=== PATIENT | female | born 1990 | race Two or more races ===

== ENCOUNTER 2025-01-12 14:46 | Outpatient (REF) | payer OTHER, SELFPAY ==
[2025-01-12 16:10] LABS: MANUAL DIFF FLAG NO
[2025-01-12 16:43] LABS: Basophils Percent Auto 0.5 % (0-2); Eosinophils Absolute Auto 0.1 X10*3/uL (0.0-0.4); Eosinophils Percent Auto 1.3 % (0-4); Hematocrit 39.9 % (37.0-47.0); Imm Gran Abs Auto 0.01 X10*3/uL (0.00-0.03); Imm Gran Pct Auto 0.2 % (0.0-0.4); Lymphocytes Absolute Auto 2.2 X10*3/uL (1.2-4.9); Mean Corpuscular HGB Conc 32.6 g/dl (31.0-35.0); Mean Corpuscular Hemoglobin 28.3 pg (27.0-33.0); Mean Corpuscular Volume 86.9 fL (80.0-98.0); Mean Platelet Volume 10.2 fL (9.4-12.3); Monocytes Absolute Auto 0.4 X10*3/uL (0.1-1.2); Monocytes Percent Auto 6.6 % (2-11); Neutrophils Absolute Auto 3.2 x10*3/uL (2.0-8.3); Neutrophils Percent Auto 54.4 % (45-73); Platelet Count 316 X10*3/uL (160-400); Red Blood Count 4.59 X10*6/uL (4.20-5.50)
[2025-01-12 16:55] LABS: Estimated Average Glucose 117 mg/dL; Hemoglobin A1C 131.1204 umol/L; Hemoglobin A1c % 5.7 % (<6.0)
[2025-01-12 17:03] LABS: Alanine Aminotransferase 39 U/L (0-31); Albumin Level 4.5 g/dL (3.5-5.0); Anion Gap 11 (12-20); Aspartate Amino Transferase 33 U/L (5-31); Bilirubin Total 0.4 mg/dL (0.0-1.0); Blood Urea Nitrogen 16 mg/dL (9-16); Carbon Dioxide 27 mmol/L (22-29); Chloride 104 mmol/L (96-108); Cholesterol 202 mg/dL (<200); Estimated Glomerular Filt Rate > 60; Glucose Random 89 mg/dL (60-115); HDL Cholesterol 47 mg/dL (>40); LDL Cholesterol Calculated 128 mg/dL (<100); Potassium 4.1 mmol/L (3.3-5.1); Sodium 138 mmol/L (135-145); Total Protein 8.6 g/dL (6.5-8.0); Triglycerides 135 mg/dL (<150)
[2025-01-12 17:09] LABS: TSH reflex Free T4 0.98 uIU/mL (0.32-4.0); Vitamin D 25-OH Total 22.6 ng/mL (>30)
[2025-01-12 17:44] LABS: Alkaline Phosphatase 48 U/L (39-117)
--- OUTSIDE RECORDS SUMMARY | 2025-01-12 18:43 | XMS_ITS | Encounter Summary ---
Author Organization [employer] Address [address] [facility] 7[address] [place] [address] Care Team Providers Care Wet Sander Name Role Phone Xiomara Hernandez MD Primary Care Provider [phone] Reason for Referral * Consultation (Routine) - Authorized Specialty Diagnoses / Procedures Referred By Kamran barajas Referred To Contact Obstetrics and Gynecology Diagnoses ASCUS with positive high risk HPV cervical Shannan Choudhury CNM [address] [place] [address] Phone: tel: fax: [facility] OBGYN [address] [facility] 4th [address] [place], [place] Phone: tel: fax: Referral ID Status Reason Start Date Expiration Date Visits Requested Visits Authorized [id number] Authorized Specialty Services Required 12/22/2024 12/22/2025 1 1 Encounter Details Date Type Department Care Team (Late st Contact Info) Description 12/22/2024 Orders Only [facility] MEDICINE [address] [place], [place] [phone] Shannan Choudhury CNM [address] [place], [place] [phone] ASCUS with positive high risk HPV cervical (Primary Dx) Social History Tobacco Use Types Packs/Day Years Used Date Smoking Tobacco: Never Smokeless Tobacco: Never Alcohol Use Standard Drinks/Week Comments Never 0 (1 standard drink = 0.6 oz pur e alcohol) Depression Answer Date Recorded Patient Health Questionnaire-9 Score 0 12/03/2023 Patient Health Questionnaire-9 Score 0 12/03/2023 Last PHQ-9: Questionnaire Data Not on file 0 12/03/2023 Depression Answer Date Recorded Patient Health Questionnaire-2 Score 0 12/03/2023 Comments No Sex and Gender Information Value Date Recorded Sex Assigned at Female 09/10/2022 10:27 AM EDT Legal Sex Female 10:27 AM EDT Gender Identity Female 09/10/2022 10:27 AM EDT Sexual Orientation Straight 09/10/2022 10 :27 AM EDT documented as of this encounter Plan of Treatment Upcoming Encounters Date Type Department Care Team (Late st Contact Info) Description 02/08/2025 2:30 PM EDT Clinical Support [facility] DIABETES/NUTRITION [address] [place] [address] Cate Reeder, RD [address] [place] [address] 03/25/2025 3:00 PM EDT Office Visit [facility] OPTOMETRY [address] [place] [address] Krish, Mica, OD [address] [place] [address] Scheduled Referrals Name Type Priority Associated Diagnoses Order Schedule Referral to Obstetrics / Gynecology Outpatient Referral Routine ASCUS with positive high risk HPV cervical Expected: 12/22/2024 (Approximate), Expires: 12/22/2025 documented as of this encounter Procedures Procedure Name Priority Date/Time Associated Diagnosis Comments PAP SMEAR Routine 08/26/2023 12:00 AM EDT PAP SMEAR Routine 08/23/2022 12:00 AM EDT documented in this encounter Results * Pap Smear (08/26/2023 12:00 AM EDT) Swab us Historical Provider LAB CYTOLOGY ORDERABLES F inal Result EXTERNAL LAB * Pap Smear (08/23/2022 12:00 AM EDT) Swab us Historical Provider LAB CYTOLOGY ORDERABLES F inal Result EXTERNAL LAB documented in this encounter Visit Diagnoses Diagnosis ASCUS with positive high risk HPV cervical- Primary documented in this encounter Additional Health Concerns Assessment Noted Time PHQ-9 Depression Total Score: 0 12/03/19 24 2:34 PM EST documented as of this encounter Care Teams Wet Sander Relationship Specialty Start Date End Date Xiomara Hernandez MD [address] [place] [address] PCP - General Family Medicine 05/02/22 documented as of this encounter
--- OUTSIDE RECORDS SUMMARY | 2025-01-12 18:43 | XMS_ITS | Encounter Summary ---
Author Organization [email or web address] Address [address] [facility] 7[address] [place] [address] Care Team Providers Care Spinning Mule Operator Name Role Phone Xiomara Hernandez MD Primary Care Provider [phone] Encounter Details Date Type Department Care Team (Latest Contact Info) Description 01/12/2025 Travel Social History Tobacco Use Types Packs/Day Years Used Date Smoking Tobacco: Never Smokeless Tobacco: Never Alcohol Use Standard Drinks/Week Comments Never 0 (1 standard drink = 0.6 oz pur e alcohol) Depression Answer Date Recorded Patient Health Questionnaire-9 Score 8 01/12/2025 Patient Health Questionnaire-9 Score 8 01/12/2025 Last PHQ-9: Questionnaire Data Not on file 0 01/12/2025 Housing Stability Answer Date Recorded What is your housing situation today? I have violeta tsai 01/05/[address] you li ve. Do you have problems with any of the following? None of the above 01/05/2025 Food Insecurity Answer Date Recorded Within the past 12 months, y ou worried that your food would run out before you got money to buy more: Sometimes True 2024 Within the past 12 months,th e food you bought just didn't last and you didn't have enough money to get more: Sometimes True 01/05/2025 Transportation Answer Date Recorded In the past 12 months, has l ack of transportation kept you from medical appts, meetings, work or from getting things needed for daily living? No 01/05/2025 Utilities Answer Date Recorded In the past 12 months, has t he electric, gas, oil or water company threatened to shut off services in your home? No 01/05/2025 Depression Answer Date Recorded Patient Health Questionnaire-2 Score 2 01/12/2025 Internet Access Answer Date Recorded Internet Access Q1 Yes 01/05/2025 Internet Access Q2 Not on file 01/05/2025 Comments No Sex and Gender Information Value [...] Description 02/08/2025 2:30 PM EDT Clinical Support [facility] DIABETES/NUTRITION [address] [place] [address] Cate Reeder, EZ [address] [place] [address] 03/25/2025 3:00 PM EDT Office Visit [facility] OPTOMETRY [address] [place] [address] Krish, Mica, OD [address] [place] [address] documented as of this encounter Visit Diagnoses Not on filedocumented in this encounter Additional Health Concerns Assessment Noted Time PHQ-9 Depression Total Score: 8 01/13/20 25 2:57 PM EST documented as of this encounter Care Teams Spinning Mule Operator Relationship Specialty Start Date End Date Xiomara Hernandez MD [address] [place] [address] PCP - General Family Medicine 05/02/22 documented as of this encounter
--- OUTSIDE RECORDS SUMMARY | 2025-01-12 18:43 | XMS_ITS | Encounter Summary ---
Author Organization [employer] Address [address] [place] [address] [address] Care Team Providers Care Debt And Budget Counselor Name Role Phone Xiomara Hernandez MD Primary Care Provider [phone] Reason for Referral * Consultation (Routine) - Pending Review Specialty Diagnoses / Procedures Referred By Kamran barajas Referred To Contact Nutrition Diagnoses Prediabetes Xiomara Hernandez MD [address] [place] [address] Phone: tel: fax: Referral ID Status Reason Start Date Expiration Date Visits Requested Visits Authorized [id number] Pending Review Specialty Services Required 4 11/03/2025 1 1 Encounter Details Date Type Department Care Team (Late st Contact Info) Description 11/03/2024 Orders Only [facility] MEDICINE [address] [place], [place] [phone] Xiomara Hernandez MD [address] [place], [place] [phone] Prediabetes (Primary Dx) Social History Tobacco Use Types [...] Description 02/08/2025 2:30 PM EDT Clinical Support [facility] DIABETES/NUTRITION [address] [place] [address] Cate Reeder, RD [address] [place] [address] 03/25/2025 3:00 PM EDT Office Visit [facility] OPTOMETRY [address] [place] [address] Krish, Mica, OD [address] [place] [address] Scheduled Referrals Name Type Priority Associated Diagnoses Orde r Schedule Referral to Nutrition Therapy Outpatient Referral Routine Prediabetes Expected: 11/03/2024 (Approximate), Expires: 11/03/2025 documented as of this encounter Visit Diagnoses Diagnosis Prediabetes- Primary Other abnormal glucose documented in this encounter Additional Health Concerns Assessment Noted Time PHQ-9 Depression Total Score: 0 12/03/19 24 2:34 PM EST documented as of this encounter Care Teams Debt And Budget Counselor Relationship Specialty Start Date End Date Xiomara Hernandez MD [address] [place] [address] PCP - General Family Medicine 05/02/22 documented as of this encounter
--- OUTSIDE RECORDS SUMMARY | 2025-01-12 18:43 | XMS_ITS | Encounter Summary ---
Author Organization [employer] Address [address] [place] [address] Care Team Providers Care Cigar Binder Name Role Phone Xiomara Hernandez MD Primary Care Provider [phone] Reason for Visit * Reason Onset Date Comments Med Refill 10/13/2023 Encounter Details Date Type Department Care Team (Late st Contact Info) Description 10/13/2023 Refill [facility] MEDICINE [address] [place] [address] Xiomara Hernandez MD [address] [place] [address] Social History Tobacco Use Types Packs/Day Years Used Date Smoking Tobacco: Never Assessed Comments Unknown Sex and Gender Information Value Date Recorded [...] 2:30 PM EDT Clinical Support [facility] DIABETES/NUTRITION [address] [place] [address] [place] [address] 03/25/2025 3:00 PM EDT Office Visit [facility] OPTOMETRY [address] [place] [address] Mica Rutherford, OD [address] [place] [address] documented as of this encounter Visit Diagnoses Not on filedocumented in this encounter Care Teams Cigar Binder Relationship Specialty Start Date End Date Xiomara Hernandez MD [address] [place] [address] PCP - General Family Medicine 05/02/22 documented as of this encounter
--- OUTSIDE RECORDS SUMMARY | 2025-01-12 18:43 | XMS_ITS | Encounter Summary ---
Author Organization [employer] Address [address] [place] [address] [address], [place] [address] Care Team Providers Care Geologist Petroleum Name Role Phone Xiomara Hernandez MD Primary Care Provider [phone] Reason for Visit * Reason Onset Date Comments Referral 11/03/2024 Encounter Details Date Type Department Care Team ([facility] st Contact Info) Description 11/03/2024 Telephone [facility] MEDICINE [address] [place], [place] [phone] Xiomara Hernandez MD [address] [place] [address] Referral Social History Tobacco Use Types Packs/Day Years [...] AM EDT documented as of this encounter Miscellaneous Notes * Telephone Encounter - Xiomara Hernandez MD - 11/03/2024 1:34 PM EST Referred * Telephone Encounter - Rachael De La Vega RN - 11/03/2024 12:37 PM EST TC placed to pt who states that she would like a referral placed to Ambar Ly, Feed Project Engineer at [facility]. The pt would like this done due to her being diagnosed pre diabetic and would like to have dietary change to help bring down her glucose trends. Pt informed that this information willbe sent to PCP for review. * Telephone Encounter - Keith Davies - 11/03/2024 12:10 PM EST Tc from requesting a referral for a Neuronist at [facility] Dr Nuris Ly. IF any questions contact pt at [phone] documented in this encounter Plan of Treatment Upcoming Encounters Date Type Department Care Team (Late st Contact Info) Description 02/08/2025 2:30 PM EDT Clinical Support [facility] DIABETES/NUTRITION [address] [place] [address] Cate Reeder, EZ [address] [place] [address] 03/25/2025 3:00 PM EDT Office Visit [facility] OPTOMETRY [address] [place] [address] KrishMica lowe, OD [address] [place] [address] documented as of this encounter Visit Diagnoses Not on filedocumented in this encounter Additional Health Concerns Assessment Noted Time PHQ-9 Depression Total Score: 0 12/03/19 2:34 PM EST documented as of this encounter Care Teams Geologist Petroleum Relationship Specialty Start Date End Date Xiomara Hernandez MD [address] [place] [address] PCP - General Family Medicine 05/02/22 documented as of this encounter
--- OUTSIDE RECORDS SUMMARY | 2025-01-12 18:43 | XMS_ITS | Encounter Summary ---
Author Organization [employer] Address [address] [place] [address] Care Team Providers Care Mortgage Processing Manager Name Role Phone Xiomara Hernandez MD Primary Care Provider [phone] Reason for Visit * Reason Comments Pre-visit Planning SDOH Screening posit frances and Tobacco screening negative Encounter Details Date Type Department Care Team ([facility] st Contact Info) Description 01/05/2025 Patient Outreach [facility] MEDICINE [address] [place] [address] Xiomara Hernandez MD [address] [place] [address] Pre-visit Planning (SDOH Screening positive and Tobacco screening negative) Social History Tobacco Use Types Packs/Day Years Used Date Smoking Tobacco: Never Smokeless Tobacco: Never Alcohol Use Standard Drinks/Week Comments Never 0 (1 standard drink = 0.6 oz pur e alcohol) Depression Answer Date Recorded Patient Health Questionnaire-9 Score 0 12/03/2023 Patient Health Questionnaire-9 Score 0 12/03/2023 Last PHQ-9: Questionnaire Data Not on file 0 12/03/2023 Housing Stability Answer Date Recorded What is [...] Recorded Patient Health Questionnaire-2 Score 0 12/03/2023 Internet Access Answer Date Recorded Internet Access Q1 Yes 01/05/2025 Internet Access Q2 Not on file 01/05/2025 Comments No Sex and Gender Information Value Date Recorded Sex Assigned at Female 09/10/2022 10:27 AM EDT Legal Sex Female 10:27 AM EDT Gender Identity Female 09/10/2022 10:27 AM EDT Sexual Orientation Straight 09/10/2022 10 :27 AM EDT documented as of this encounter Progress Notes * Leigh Taveras - 01/05/2025 10:05 AM EST ABIODUN Damon placed successful outbound call to patient for pre-visit planning. Patient name and confirmed. Patient confirms appt date and time, and has transportation arrangements. Biggest concern for appointment at this time is no concerns. Patient advised to bring to appointment a photo id and insurance card. Appropriate screenings completed in anticipation of appointment. SDOH positive. Patient looking for assistance with Food insecurities:Sometimes. Referral will be placed. documented in this encounter Plan of Treatment Upcoming Encounters Date Type Department Care Team (Late st Contact Info) Description 02/08/2025 2:30 PM EDT Clinical Support [facility] DIABETES/NUTRITION [address] [place], [place] [phone] Cate Reeder, EZ [address] [place] [address] 03/25/2025 3:00 PM EDT Office Visit [facility] OPTOMETRY [address] [place] [address] Mica Rutherford, OD [address] [place] [address] documented as of this encounter Visit Diagnoses Not on filedocumented in this encounter Additional Health Concerns Assessment Noted Time PHQ-9 Depression Total Score: 0 12/03/19 24 2:34 PM EST documented as of this encounter Care Teams Mortgage Processing Manager Relationship Specialty Start Date End Date Xiomara Hernandez MD [address] [place] [address] PCP - General Family Medicine 05/02/22 documented as of this encounter
--- OUTSIDE RECORDS SUMMARY | 2025-01-12 18:43 | XMS_ITS | Encounter Summary ---
Author Organization [employer] Address [address] [place] [address] [address] Care Team Providers Care Baggage And Mail Agent Name Role Phone Xiomara Hernandez MD Primary Care Provider [phone] Reason for Visit * Consultation (Routine) - Pending Review Specialty Diagnoses / Procedures Referred By Kamran barajas Referred To Contact Nutrition Diagnoses Prediabetes Xiomara Hernandez MD [address] [place] [address] Phone: tel: fax: Referral ID Status Reason Start Date Expiration Date Visits Requested Visits Authorized [id number] Pending Review Specialty Services Required 4 11/03/2025 1 1 Encounter Details Date Type Department Care Team ([facility] st Contact Info) Description 12/15/2024 2:30 PM EST Nutrition [facility] DIABETES/NUTRITION [address] [place] [address] [place], [place] [phone] Prediabetes (Primary Dx) Social History Tobacco Use [...] AM EDT documented as of this encounter Last Filed Vital Signs Vital Sign Reading Time Taken Comments Blood Pressure - - Pulse - - Temperature - - Respiratory Rate - - Oxygen Saturation - - Inhaled Oxygen Concentration - - Weight 99.9 kg (220 lb 3.2 oz) 12/17/2024 9:57 A M EST Height 165.3 cm (5' 5.09 ) 12/17/2024 9:57 AM ES T Body Mass Index 36.54 12/17/2024 9:57 AM EST documented in this encounter Progress Notes * Cate Reeder RD - 12/15/2024 2:30 PM EST In Person Visit Medical Diagnosis: R73.03 Prediabetes Anthropometrics: Ht:5' 5.09 (1.653 m), Wt:220 lb 3.2 oz (99.9 kg), BMI: Body mass index is 36.54 kg/m??. Assessment: Patient (Pt) accepted nutrition education assessment appointment with RD. RD took Pt's weight. Weight revealed a decrease of three (3) pounds since last time noted here in Pt's chart on 10/15/2024. RD took 24 hour recall/ typical daily intake from Pt. Intake revealed Pt's diet is high in refine carbohydrates and salt; and low in: protein, healthy fats, sources of calcium, fiber, fresh and cooked vegetables, fruits, and whole grains. Today, Pt only did the first half of First appointment. Once the second half of First appointment is finished, RD will fill in nutrition diagnosis, nutrition Intervention, goals, Tailored made meal plan, monitoring and evaluation will be put into Pt's chart here. Thus, all is to be followed by Pt with their agreement. The second half of First nutrition education assessment appointment is scheduled in the first week of January 2025. Until then, RD made suggestions of change in Pt's diet. Pt agreed to work on these changes and havethem completed by next appointment. These changes will be feathered into Pt overall Tailored made diabetic meal plan. They are: Take Calm- magnesium carbonate drink. RD showed were Pt can get this drink and how to make it. Pt is to take daily in the evening upon going to bed. Use the elliptical in the house hold as the source of exercise. Pt is to use machine, but not to push herself in how far/ distance and time. Use until she feels tired. Use real butter instead of margarine. In the evening, have evening snack after protestant as a salad with protein and EVOO (extra virgin olive oil) and whatever dressing Pt preferrs. Wake up an hour later to get more sleep... such as, 4:00 am instead of 3:00 am. Pt said she can do all of these with no issues in doing them. Food Allergies: Shellfish Exercise: Little to none Food Intolerance: Lactose- dairy Food Preferences: Eggs, jensen, turkey, sausages, margarine, chicken, beef, pork, breads, rice, beans, noodles/ pasta,lasagna, chicken nuggets, malawian fries, lettuces, potatoes, tomatoes, Lay's potato chips, corn chips, Woodhull chocolate, Leandro sauce, arnie, milk, coffee, water Food Dislikes: Regular yogurt due to giving Pt heat burn Frequency of Eating Out/ Restaurant: 5 days or greater weekly Who Cooks?: Partner How much caffeine?: coffee 1-2 cups /day How much sugary beverages?: Coffee is sweetened with stevia. Diet History: Breakfast: Eg Jensen, turkey: 2-4 slices Or Breakfast sausages: 3-4 Honey wheat bread: 2 slices Margarine: 4 teaspoons Coffee, black: 1 cup Snack: None Water: 1+ cup Lunch: Beans & rice mixed: 1 cup Meat/ protein: 4 oz. Water: 1+ cups Snack: Lay's potato chips: snack bag Water: 1/2+ cup Dinner: Chicken Leandro: 1+ cups Noodles: 1+ cups Water: 1+ cup Snack: Late at night, after protestant: Casie[employer] Chicken nuggets: 6+ Or Mini hamburger/ slider: one Blueberry/ pomegranate drink, with real sugar: 2 cups Nutrition Diagnosis: 1st half of First appointment was done today. When the 2nd half of First appointment is finished/ done, this area will be filled in. Nutrition Intervention: 1st half of First appointment was done today. When the 2nd half of First appointment is finished/ done, this area will be filled in. Monitoring and Evaluation: 1st half of First appointment was done today. When the 2nd half of First appointment is finished/ done, this area will be filled in. Provider: Cate Reeder RD, LDN documented in this encounter Plan of Treatment Upcoming Encounters Date Type Department Care Team (Late st Contact Info) Description 02/08/2025 2:30 PM EDT Clinical Support [facility] DIABETES/NUTRITION [address] [place] [address] [place] [address] 03/25/2025 3:00 PM EDT Office Visit [facility] OPTOMETRY [address] [place] [address] KrishMica lowe, OD [address] [place] [address] documented as of this encounter Visit Diagnoses Diagnosis Prediabetes- Primary Other abnormal glucose documented in this encounter Additional Health Concerns Assessment Noted Time PHQ-9 Depression Total Score: 0 12/03/19 24 2:34 PM EST documented as of this encounter Care Teams Baggage And Mail Agent Relationship Specialty Start Date End Date Xiomara Hernandez MD [address] [place] [address] PCP - General Family Medicine 05/02/22 documented as of this encounter
--- OUTSIDE RECORDS SUMMARY | 2025-01-12 18:43 | XMS_ITS | Encounter Summary ---
Author Organization [employer] Address [address] [place] [address] [address] [place] [address] Care Team Providers Care Electric Range Servicer Name Role Phone Xiomara Hernandez MD Primary Care Provider Encounter Details Date Type Department Care Team (Late st Contact Info) Description 01/12/2025 1:45 PM EST Office Visit [facility] MEDICINE [address] [place], [place] [phone] Xiomara Hernandez MD [address] [place], [place] [phone] Routine general medical examination at a health care facility (Primary Dx); Mild intermittent asthma without complication; Constipation, unspecified constipation type; Migraine without status migrainosus, not intractable, unspecified migraine type; Fatigue, unspecified type; Vitamin D deficiency; Routine screening for STI (sexually transmitted infection) Social History Tobacco Use Types Packs/Day Years [...] Sign Reading Time Taken Comments Blood Pressure 133/79 01/12/2025 2:18 PM EST Pulse 49 01/12/2025 2:18 PM EST Temperature 36.3 ??C (97.3 ??F) 01/12/2025 2:18 PM ES T Respiratory Rate 15 01/12/2025 2:18 PM EST Oxygen Saturation 98% 01/12/2025 2:18 PM EST Inhaled Oxygen Concentration - - Weight 101 kg (223 lb) 01/12/2025 2:18 PM EST Height 169 cm (5' 6.54 ) 01/12/2025 2:18 PM EST Body Mass Index 35.42 01/12/2025 2:18 PM EST documented in this encounter Miscellaneous Notes * Assessment & Plan Note - Desirae Fernandes MA - 01/12/2025 1:13 PM ESTAssociated Problem(s): Migraine Previously seeing [facility] neurology, referred back in Jun 2022. Pt will call to schedule appt. Continue (resume) Magnesium oxide. * Assessment & Plan Note - Desirae Fernandes MA - 01/12/2025 1:12 PM ESTAssociated Problem(s): Constipation - continue judicious use of laxative - add magnesium oxide * Assessment & Plan Note - Desirae Fernandes MA - 01/12/2025 1:12 PM ESTAssociated Problem(s): Mild intermittent asthma - dormant at this time - albuterol HFA prn documented in this encounter Plan of Treatment Upcoming Encounters Date Type Department Care Team (Late st Contact Info) Description 02/08/2025 2:30 PM EDT Clinical Support [facility] DIABETES/NUTRITION [address] [place] [address] Cate Reeder, RD [address] [place] [address] 03/25/2025 3:00 PM EDT Office Visit [facility] OPTOMETRY [address] [place] [address] KrishMica lowe, OD [address] [place] [address] Pending Results Name Type Priority Associated Diagnoses Date /Time TSH with Reflex to Free T4 Lab Routine Fatigue, unspecified type 01/12/2025 2:49 PM EST Comprehensive Metabolic Panel Lab Routine Fatigue, unspecified type 01/12/2025 2:49 PM EST Lipid Panel with Reflex to Direct LDL Lab Routine Fatigue, unspecified type 01/12/2025 2:49 PM EST Vitamin D, 25-Hydroxy, Total, Immunoassay Lab Routine Vitamin D deficiency 01/12/2025 2:49 PM EST Scheduled Orders Name Type Priority Associated Diagnoses Orde r Schedule Syphilis Screen Lab Routine Routine screening for STI (sexually transmitted infection) Expected: 01/12/2025 (Approximate), Expires: 01/12/2026 Hepatitis C Antibody with Reflex to HCV, RNA, Quantitative, Real-Time PCR Lab Routine Routine screening for STI (sexually transmitted infection) Expected: 01/12/2025 (Approximate), Expires: 01/12/2026 Hepatitis B Surface Antibody, Qualitative Lab Routine Routine screening for STI (sexually transmitted infection) Expected: 01/12/2025 (Approximate), Expires: 01/12/2026 Hepatitis B Core Antibody, Total Lab Routine Routine screening for STI (sexually transmitted infection) Expected: 01/12/2025 (Approximate), Expires: 01/12/2026 Chlamydia/N. Gonorrhoeae RNA, TMA, Urogenitial Microbiology Routine Routine screening for STI (sexually transmitted infection) Expected: 01/12/2025 (Approximate), Expires: 01/12/2026 HIV-1/2 Antigen and Antibodies, Fourth Generation, with Reflexes Lab Routine Routine screening for STI (sexually transmitted infection) Expected: 01/12/2025 (Approximate), Expires: 01/12/2026 Hepatitis B surface antigen, EIA Lab Routine Routine screening for STI (sexually transmitted infection) Expected: 01/12/2025 (Approximate), Expires: 01/12/2026 Hepatitis A Antibody, Total Lab Routine Routine screening for STI (sexually transmitted infection) Expected: 01/12/2025 (Approximate), Expires: 01/12/2026 documented as of this encounter Procedures Procedure Name Priority Date/Time Associated Diagnosis Comments VITAMIN D,25-OH,TOTAL,IA Routine 01/12/2025 2:49 PM EST Vitamin D deficiency TSH W/REFLEX TO FT4 Routine 01/12/2025 2 :49 PM EST Fatigue, unspecified type LIPID PANEL WITH REFLEX TO DIRECT LDL Routine 01/12/2025 2:49 PM EST Fatigue, unspecified type CBC WITH AUTO DIFFERENTIAL Routine 01/12/2025 2:49 PM EST Fatigue, unspecified type HEMOGLOBIN A1C Routine 01/12/2025 2:49 PM EST Fatigue, unspecified type COMPREHENSIVE METABOLIC PANEL Routine 01/12/2025 2:49 PM EST Fatigue, unspecified type documented in this encounter Results * CBC auto differential (01/12/2025 2:49 PM EST) White Blood Count 6.0 4.8 - 10.8 X10*3/uL [facility] Red Blood Count 4.59 4.20 - 5.50 X10*6/uL [facility] Hemoglobin 13.0 12.0 - 16.0 g/dl [facility] Hematocrit 39.9 37.0 - 47.0 % [facility] Mean Corpuscular Volume 86.9 80.0 - 98.0 fL [facility] Mean Corpuscular Hemoglobin 28.3 27.0 - 33.0 pg [facility] Mean Corpuscular HGB Conc 32.6 31.0 - 35.0 g/dl [facility] Red Cell Distribution Width 13.0 11.0 - 16.0 % [facility] Platelet Count 316 160 - 400 X10*3/uL [facility] Mean Platelet Volume 10.2 9.4 - 12.3 fL [facility] Neutrophils Percent Auto 54.4 45 - 73 % [facility] Imm Gran Pct Auto 0.2 0.0 - 0.4 % [facility] Lymphocytes Percent Auto 37.0 20 - 40 % [facility] Monocytes Percent Auto 6.6 2 - 11 % [facility] Eosinophils Percent Auto 1.3 0 - 4 % [facility] Basophils Percent Auto 0.5 0 - 2 % [facility] NRBC Pct Auto 0.0 0.0 - 0.2 /100WBC [facility] Neutrophils Absolute Auto 3.2 2.0 - 8.3 x10*3/uL [facility] Imm Gran Abs Auto 0.01 0.00 - 0.03 X10*3/uL [facility] Lymphocytes Absolute Auto 2.2 1.2 - 4.9 X10*3/uL [facility] Monocytes Absolute Auto 0.4 0.1 - 1.2 X10*3/uL [facility] Eosinophils Absolute Auto 0.1 0.0 - 0.4 X10*3/uL [facility] Basophils Absolute Auto 0.0 0.0 - 0.2 X10*3/uL [facility] NRBC Abs Auto 0.000 0.0 - 0.012 X10*3/uL [facility] Blood Venous blood specimen / Unknown 01/12/2025 2:49 PM EST 01/12/2025 4:06 PM EST us Xiomara Hernandez MD LAB BLOOD ORDERABLES Final Resul t Performing Organization Address [facility] de Phone Number [facility] [address] [place] [phone] * Hemoglobin A1c (01/12/2025 2:49 PM EST) Hemoglobin A1c 5.7 <6.0 % [facility] Comment:Hemoglobin A1C Refer ence Range Adults: 4.8 - 6.0 % Non diabetic: < 6.0 % Goal: < 7.0 %Additional Action Suggested: > 8.0 %Note: Hemoglobin A1c results are invalid for patients with abnormal amounts of HbF. Blood transfusions may impact the HbA1c concentration in the patient sample. Estimated Average Glucose 117 mg/dL [facility] Comment:eAG = Estimated ave rage glucose which is %A1C expressed asaverage glucose, using the formula of the C2O-LdtdwqqLmuwndn Glucose study (ADAG), Diabetes Care, Vol.31,#8,2007 Blood Venous blood specimen / Unknown 01/12/2025 2:49 PM EST 01/12/2025 4:06 PM EST us Xiomara Hernandez MD LAB BLOOD ORDERABLES Final Resul t Performing Organization Address [facility] Co de Phone Number [facility] [address] [place] [phone] documented in this encounter Visit Diagnoses Diagnosis Routine general medical examination at a health care facility- Primary Mild intermittent asthma without complication Constipation, unspecified constipation type Migraine without status migrainosus, not intractable, unspecified migraine type Fatigue, unspecified type Vitamin D deficiency Routine screening for STI (sexually transmitted infection) Screening examination for venereal disease documented in this encounter Additional Health Concerns Assessment Noted Time PHQ-9 Depression Total Score: 8 01/13/20 25 2:57 PM EST documented as of this encounter Care Teams Electric Range Servicer Relationship Specialty Start Date End Date Xiomara Hernandez MD [address] [place] [phone] PCP - General Family Medicine 05/02/22 documented as of this encounter
--- OUTSIDE RECORDS SUMMARY | 2025-01-12 18:44 | XMS_ITS | Encounter Summary ---
Author Organization [employer] Address [address] [facility] [address] [place] [address] Care Team Providers Care Aeronautics Teacher Name Role Phone Xiomara Hernandez MD Primary Care Provider [phone] Reason for Visit * Reason Onset Date Comments chart prep 01/06/2025 Encounter Details Date Type Department Care Team ([facility] st Contact Info) Description 01/06/2025 Telephone [facility] MEDICINE [address] [place] [address] Nerissa Nelson MA chart prep Social History Tobacco Use Types Packs/Day Years [...] encounter Miscellaneous Notes * Telephone Encounter - Nerissa Nelson MA - 01/06/2025 3:18 PM EST ..chart Prep Labs: not done Images: not done Vaccines due: Covid Due, Hep B Due, and Flu Due Referrals: pending appt obgyn Screenings: Not Applicable Overdue care gaps: PHQ-9 and caesar-7 documented in this encounter Plan of Treatment Upcoming Encounters Date Type Department Care Team (Late st Contact Info) Description 02/08/2025 2:30 PM EDT Clinical Support [facility] DIABETES/NUTRITION [address] [place] [address] Cate Reeder, EZ [address] [place] [address] 03/25/2025 3:00 PM EDT Office Visit [facility] OPTOMETRY [address] [place] [address] Krish, Mica, OD [address] [place] [address] documented as of this encounter Visit Diagnoses Not on filedocumented in this encounter Additional Health Concerns Assessment Noted Time PHQ-9 Depression Total Score: 0 12/03/19 24 2:34 PM EST documented as of this encounter Care Teams Aeronautics Teacher Relationship Specialty Start Date End Date Xiomara Hernandez MD [address] [place] [address] PCP - General Family Medicine 05/02/22 documented as of this encounter
--- OUTSIDE RECORDS SUMMARY | 2025-01-12 18:44 | XMS_ITS | Encounter Summary ---
Author Organization [employer] Address [address] [facility] [address] [place] [address] Care Team Providers Care Debarker Operator Name Role Phone Xiomara Hernandez MD Primary Care Provider [phone] Reason for Visit * Reason Comments Care Coordination CHW outreach for SDO H food needs - LVM Encounter Details Date Type Department Care Team (Latest Contact Info) Description 01/05/2025 Patient Outreach [facility] MEDICINE [address] [place], [place] [phone] Xiomara Hernandez MD [address] [place] [address] Care Coordination (CHW outreach for SDOH food needs - LVM ) Social History Tobacco Use Types Packs/Day Years [...] as of this encounter Progress Notes * Juan Walker - 01/05/2025 10:41 AM EST CHW Juan Walker, placed outbound call to patient for assistance with SDOH as a referral was placed by the provider. Patient had screened positive for the following SDOH insecurities. No answer atthis time. Patient's name and were not confirmed. CHW left detailed message and provided contact information requesting return call for assistance. Patient educated on extended clinic hours on Mondays through Wednesdays, and Walk-In Urgent Care Located in [facility] of [facility]. Patient provided with after-hours line for [facility], , which offer night time triage service and option to transfer toon call provider if needed. documented in this encounter Plan of Treatment Upcoming Encounters Date Type Department Care Team ([facility] st Contact Info) Description 02/08/2025 2:30 PM EDT Clinical Support [facility] DIABETES/NUTRITION [address] [place] [address] [place] [address] 03/25/2025 3:00 PM EDT Office Visit [facility] OPTOMETRY [address] [place] [address] Mica Rutherford, OD [address] [place] [address] documented as of this encounter Visit Diagnoses Not on filedocumented in this encounter Additional Health Concerns Assessment Noted Time PHQ-9 Depression Total Score: 0 12/03/19 24 2:34 PM EST documented as of this encounter Care Teams Debarker Operator Relationship Specialty Start Date End Date Xiomara Hernandez MD [address] [place] [address] PCP - General Family Medicine 05/02/22 documented as of this encounter
--- OUTSIDE RECORDS SUMMARY | 2025-01-12 18:44 | XMS_ITS | Encounter Summary ---
Author Organization [employer] Address [address] [facility] [address] [place] [address] Care Team Providers Care Social Insurance Analyst Name Role Phone Xiomara Hernandez MD Primary Care Provider [phone] Encounter Details Date Type Department Care Team (Latest Contact Info) Description 01/11/2025 Travel Social History Tobacco Use Types Packs/Day [...] Description 02/08/2025 2:30 PM EDT Clinical Support [facility] DIABETES/NUTRITION [address] [place] [address] Cate Reeder, EZ [address] [place] [address] 03/25/2025 3:00 PM EDT Office Visit [facility] OPTOMETRY [address] [place] [address] Krish, Mica, OD [address] [place] [address] documented as of this encounter Visit Diagnoses Not on filedocumented in this encounter Additional Health Concerns Assessment Noted Time PHQ-9 Depression Total Score: 0 12/03/19 24 2:34 PM EST documented as of this encounter Care Teams Social Insurance Analyst Relationship Specialty Start Date End Date Xiomara Hernandez MD [address] [place] [address] PCP - General Family Medicine 05/02/22 documented as of this encounter
--- OUTSIDE RECORDS SUMMARY | 2025-01-12 18:44 | XMS_ITS | Encounter Summary ---
Author Organization [email or web address] Address [address] [place] [address] Care Team Providers Care Teacher Dramatics Name Role Phone Xiomara Hernandez MD Primary Care Provider [phone] Encounter Details Date Type Department Care Team (Late Contact Info) Description 06/07/2023 Abstract [facility] MEDICINE [address] [place] [address] Xiomara Hernandez MD [address] [place] [address] Social History Tobacco Use Types Packs/Day Years [...] Encounters Date Type Department Care Team (Late Contact Info) Description 02/08/2025 2:30 PM EDT Clinical Support [facility] DIABETES/NUTRITION [address] [place] [address] [place] [address] 03/25/2025 3:00 PM EDT Office Visit [facility] OPTOMETRY [address] [place] [address] KrishMica lowe, OD [address] [place] [address] documented as of this encounter Visit Diagnoses Not on filedocumented in this encounter Care Teams Teacher Dramatics Relationship Specialty Start Date End Date Xiomara Hernandez MD [address] [place] [address] PCP - General Family Medicine 05/02/22 documented as of this encounter
--- OUTSIDE RECORDS SUMMARY | 2025-01-12 18:44 | XMS_ITS | Clinical Summary ---
Author Organization [employer] Address [address] [place] [address] 7 [place] [address] Care Team Providers Care Wrapper Stemmer Hand Name Role Phone Xiomara Hernandez MD Primary Care Provider [phone] Allergies No known active allergies Medications polyvinyl alcohol (Liquifilm Tears) 1.4 % ophthalmic solution one drop in each eye 2 to 4 times a day 1 Active polyethylene glycol, PEG, 3350 (MiraLax) 17 GM/SCOOP powder take (17G) by oral route every day mixed with 8 oz. water, juice, soda, coffee or tea as needed for CONSTIPATION 9 Active senna (Senokot) 8.6 MG tablet TAKE 2 TABLETS BY MOUTH EVERY DAY NEEDED FOR CONSTIPATION 180 tablet 3 Active clotrimazole (Lotrimin) 1 % cream Apply topically 2 times daily. 30 g 5 4 Active hydrocortisone 2.5 % cream Apply to affected area once or twice daily 28 g 3 4 Active omeprazole (PriLOSEC) [address] Baig ons:Heartburn Take 1 capsule (20 mg) by mouth before breakfast. Do not crush or chew. 90 capsule 3 4 Active Magnesium 400 MG capsule Take 1 capsule by mouth twice a day 60 capsule 11 4 Active fluconazole (Diflucan) 150 MG tablet One tablet now. May repeat in 72h if needed 1 tablet 1 4 Active Active Problems Problem Noted Date Diagnosed Date Heartburn 12/13/2023 Assessment & Plan (12/13/2023 6:35 AM EST): - negative H. Pylori in Oct 2022 - resume omeprazole - avoid NSAIDs and other irritants - consider early referral to GI due to her family history Constipation 10/25/2022 Assessment & Plan (01/12/2025 1:12 PM EST): - continue judicious use of laxative - add magnesium oxide Assessment & Plan (12/13/2023 6:32 AM EST): - continue judicious use of laxative - add magnesium oxide Migraine 08/06/2018 Assessment & Plan (01/12/2025 1:13 PM EST): Previously seeing [facility] neurology, referred back in Jun 2022. Pt will call to schedule appt. Continue (resume) Magnesium oxide. Assessment & Plan (12/13/2023 6:34 AM EST): Previously seeing [facility] neurology, referred back in Jun 2022. Pt will call to schedule appt. Continue (resume) Magnesium oxide. Assessment & Plan (10/25/2022 12:17 PM EST): ?? Previously seeing [facility] neurology, referred back in Jun 2022. Pt will call to schedule appt. ?? Resume Magnesium oxide. Mild intermittent asthma 08/06/2018 Assessment & Plan (01/12/2025 1:12 PM EST): - dormant at this time - albuterol HFA prn Assessment & Plan (12/13/2023 6:32 AM EST): - dormant at this time - albuterol HFA prn Obesity 06/07/2016 Assessment & Plan (12/13/2023 6:33 AM EST): - continue working on lifestyle modifications Encounters Date Type Department Care Team Description 01/12/2025 1:45 PM EST Office Visit [address] [address] Xiomara Hernandez MD Routine general medical examination at a health care facility (Primary Dx); Mild intermittent asthma without complication; Constipation, unspecified constipation type; Migraine without status migrainosus, not intractable, unspecified migraine type; Fatigue, unspecified type; Vitamin D deficiency; Routine screening for STI (sexually transmitted infection) 01/12/2025 Travel 01/11/2025 Travel 01/06/[address] [address] Nerissa Nelson MA chart prep 01/05/2025 Patient Outreach [address] [address] Xiomara Hernandez MD Care Coordination (CHW outreach for SDOH food needs - LVM ) 01/05/2025 Patient Outreach [address] [address] Xiomara Hernandez MD Pre-visit Planning (SDOH Screening positive and Tobacco screening negative) 12/22/2024 Orders Only [address] [address] Kobe Mauricio CNM ASCUS with positive high risk HPV cervical (Primary Dx) 12/15/2024 2:30 PM EST Nutrition [facility] DIABETES/NUTRITION [address] [place] [address] Prediabetes (Primary Dx) 12/08/2024 Travel 11/19/[address] [address] Nerissa Nelson MA febuary recall 11/03/2024 Orders Only [address] [address] Xiomara Hernandez MD Prediabetes (Primary Dx) 11/03/[address] [address] Xiomara Hernandez MD Referral 10/21/[address] [address] Moriah Delacruz, pharmacy technician trainee 10/15/2024 11:30 AM EST Office Visit [address] [address] Kobe Mauricio CNM Vaginal discharge (Primary Dx); History of cervical dysplasia; Candidiasis of vulva and vagina 10/15/2024 Travel 10/14/2024 Travel 10/14/2024 Telephone [facility] MEDICINE [address] [place] [address] Neha Farris RN 10/14/2024 Telephone [facility] MEDICINE [address] [place] [address] Xiomara Hernandez MD Nurse Triage from Last 3 Months Immunizations Name Administration Dates Next Due Influenza Injectable Quadriv alant Preservative Free IIV4 MDCK 07/26/2022,08/17/2020 Influenza injectable quadriv alent IIV4 with preservative 07/23/2018,07/20/2015 Influenza injectable quadrivalent preservative f ree 08/13/2023,07/24/2017 Tdap 05/31/2015 Family History Medical History Relation Name Comments Diabetes Father Luis Antonio Liver cancer Father Luis Antonio at 50 Stomach cancer Maternal Grandmother Hypertension Mother Ernestina Cancer Mother's Sister Jena Dementia Paternal Grandmother Osteoporosis Neg Hx Relation Name Status Comments Father Luis Antonio Maternal Grandmother Mother Ernestina Alive Mother's Sister Jena Paternal Grandmother Social History Tobacco Use Types Packs/Day Years Used Date Smoking Tobacco: Never Smokeless Tobacco: Never Tobacco Cessation:Counseling Given: Not Answered Alcohol Use Standard Drinks/Week Comments Never 0 [...] Orientation Straight 09/10/2022 10 :27 AM EDT Last Filed Vital Signs Vital Sign Reading [...] Mass Index 35.42 01/12/2025 2:18 PM EST Plan of Treatment Upcoming Encounters Date Type Department Care Team (Late st Contact Info) Description 02/08/2025 2:30 PM EDT Clinical Support [facility] DIABETES/NUTRITION [address] [place] [address] Cate Reeder, EZ [address] [place] [address] 03/25/2025 3:00 PM EDT Office Visit [facility] OPTOMETRY [address] [place] [address] Mica Rutherford, OD [address] [place] [address] Health Maintenance Due Date Last Done Comments Family Planning (PISQ) 2003 Hepatitis B Vaccines (1 of 3 - 19+ 3-dose series) 2007 Pneumococcal Vaccine: Pediatrics (0 to 5 Years) and At-Risk Patients (6 to 49) Years) (1 of 2 - PCV) 2007 COVID-19 Vaccine (3 - 2023- season) 2024 03/27/2021, 03/06/2021 Influenza Vaccine (#1) 2024 , 07/26/2022, 08/17/2020, Additional history exists HPV/Cotest 08/26/2024 Colposcopy 10/16/2024 DTaP/Tdap/Td Vaccines (2 - Td or Tdap) 05/31/2025 05/31/2015 Alcohol/Substance Use Screening 10/15/2025 10/15/2024 Cervical Cancer Screening 10/15/2025 Pap Smear 10/15/2025 10/15/2024, 08/11, 08/23/2022 Tobacco Screening 10/15/2025 10/15/2024 SDOH Screening 01/05/2026 01/05/2025 Depression Screening 01/12/2026 01/12/2025, 01/13/20 Diabetes: Hemoglobin A1C 01/12/2026 025, 10/15/2024, 04/23/2024, Additional history exists Lipid Panel 01/12/2030 01/12/2025, 04/11, 07/12/2022 Zoster Vaccines (1 of 2) 2038 RSV Patients and Patients Aged 60 years or older (1 - 1-dose 75+ series) 2063 HIV Screening Completed 07/12/2022 Hepatitis C Screening Completed 07/12/2022 HIB Vaccines Aged Out No longer eligi ble based on patient's age to complete this topic HPV Vaccines Aged Out No longer eligi ble based on patient's age to complete this topic Hepatitis A Vaccines Aged Out No long er eligible based on patient's age to complete this topic IPV Vaccines Aged Out No longer eligi ble based on patient's age to complete this topic Meningococcal Vaccine Aged Out No ian alex eligible based on patient's age to complete this topic RSV under 20 months Aged Out No longe r eligible based on patient's age to complete this topic Rotavirus Vaccines Aged Out No longer eligible based on patient's age to complete this topic Procedures Procedure Name Priority Date/Time Associated Diagnosis Comments CBC WITH AUTO DIFFERENTIAL Routine 01/12/2025 2:49 PM EST Fatigue, unspecified type VITAMIN D,25-OH,TOTAL,IA Routine 01/12/2025 2:49 PM EST Vitamin D deficiency LIPID PANEL WITH REFLEX TO DIRECT LDL Routine 01/12/2025 2:49 PM EST Fatigue, unspecified type COMPREHENSIVE METABOLIC PANEL Routine 01/12/2025 2:49 PM EST Fatigue, unspecified type HEMOGLOBIN A1C Routine 01/12/2025 2:49 PM EST Fatigue, unspecified type TSH W/REFLEX TO FT4 Routine 01/12/2025 2 :49 PM EST Fatigue, unspecified type POCT WET MOUNT/ARIAN Routine 10/15/2024 11 :44 AM EST Vaginal discharge CHLAMYDIA/N. GONORRHOEAE AND T. VAGINALIS RNA, QUAL,TMA Routine 10/15/2024 11:42 AM EST Vaginal discharge PAP SMEAR Routine 10/15/2024 11:42 AM EST History of cervical dysplasia POCT GLYCATED HEMOGLOBIN, TOTAL Routine 10/15/2024 11:41 AM EST Candidiasis of vulva and vagina ZZZ HISTORICAL HEPATITIS C AB W/REFL TO HCV RNA, QN, PCR Routine 07/12/2022 8:40 AM EDT HIV 1/2 ANTIGEN/ANTIBODY, FOURTH GENERATION W/RFL Routine 07/12/2022 8:40 AM EDT from Last 3 Months or Most Recently Relevant to Health Maintenance Results * CBC auto differential (01/12/2025 2:49 PM EST) White Blood Count 6.0 4.8 - 10.8 X10*3/uL [facility] Red Blood Count 4.59 4.20 - 5.50 X10*6/uL [facility] Hemoglobin 13.0 12.0 - 16.0 g/dl [facility] Hematocrit 39.9 37.0 - 47.0 % [facility] Mean Corpuscular Volume 86.9 80.0 - 98.0 fL [facility] Mean Corpuscular Hemoglobin 28.3 27.0 - 33.0 pg [facility] Mean Corpuscular HGB Conc 32.6 31.0 - 35.0 g/dl [facility] Red Cell Distribution Width 13.0 11.0 - 16.0 % [facility] Platelet Count 316 160 - 400 X10*3/uL [facility] Mean Platelet Volume 10.2 9.4 - 12.3 fL [facility] Neutrophils Percent Auto 54.4 45 - 73 % [facility] Imm Gran Pct Auto 0.2 0.0 - 0.4 % [facility] Lymphocytes Percent Auto 37.0 20 - 40 % [facility] Monocytes Percent Auto 6.6 2 - 11 % [facility] Eosinophils Percent Auto 1.3 0 - 4 % [facility] Basophils Percent Auto 0.5 0 - 2 % [facility] NRBC Pct Auto 0.0 0.0 - 0.2 /100WBC [facility] Neutrophils Absolute Auto 3.2 2.0 - 8.3 x10*3/uL [facility] Imm Gran Abs Auto 0.01 0.00 - 0.03 X10*3/uL [facility] Lymphocytes Absolute Auto 2.2 1.2 - 4.9 X10*3/uL [facility] Monocytes Absolute Auto 0.4 0.1 - 1.2 X10*3/uL [facility] Eosinophils Absolute Auto 0.1 0.0 - 0.4 X10*3/uL [facility] Basophils Absolute Auto 0.0 0.0 - 0.2 X10*3/uL [facility] NRBC Abs Auto 0.000 0.0 - 0.012 X10*3/uL [facility] Blood Venous blood specimen / Unknown 01/12/2025 2:49 PM EST 01/12/2025 4:06 PM EST Xiomara Hernandez MD LAB BLOOD ORDERABLES Final Resul t Performing Organization Address [facility] de Phone Number [facility] [address] [place] [phone] * Hemoglobin A1c (01/12/2025 2:49 PM EST) Hemoglobin A1c 5.7 <6.0 % [facility] Comment:Hemoglobin A1C Refer ence Range Adults: 4.8 - 6.0 % Non diabetic: < 6.0 % Goal: < 7.0 %Additional Action Suggested: > 8.0 %Note: Hemoglobin A1c results are invalid for patients with abnormal amounts of HbF. Blood transfusions may impact the HbA1c concentration in the patient sample. Estimated Average Glucose 117 mg/dL [facility] Comment:eAG = Estimated ave rage glucose which is %A1C expressed asaverage glucose, using the formula of the [id number]-[id number] Glucose study (ADAG), Diabetes Care, Vol.31,#8,Jun. 2007 Blood Venous blood specimen / Unknown 01/12/2025 2:49 PM EST 01/12/2025 4:06 PM EST us Xiomara Hernandez MD LAB BLOOD ORDERABLES Final Resul t Performing Organization Address [facility] Co de Phone Number [facility] [address] [place] [phone] * POCT fern test, vaginal fluid manually resulted (10/15/2024 11:44 AM EST) [facility] Prep Positive Comment:pH 4.5, neg clue, ne g whiff, neg trich, neg wbc, pos buds Vaginal Fluid Vaginal structure / Unknown 10/15/2024 11:44 AM EST Jose De Jesuss Kobe Mauricio CNM - 10/15/2024 11:44 AM EST Vulvovaginal candidiasis Kobe Mauricio CNM POINT OF CARE TEST ENTER/ EDIT ORDERABLES Final Result * STI testing add on (NG, CT, Trich) (10/15/2024 11:42 AM EST) Trichomonas (NAAT) NOT DETECTED NOT DETECTED [facility] Comment:The analytical perfo rmance characteristics of thisassay have been determined by [employer]. Themodifications have not been cleared or approved bythe FDA. This assay has been validated pursuant to theCLIA regulations and is used for clinical purposes.For additional information, please refer tohttp://education.Nubee/faq/Trichomonastma(This link is being provided for information/educational purposes only.)THIS TEST WAS PERFORMED AT:[facility] [place] [phone] JAIMES MD CTNG Ref Lab NOT DETECTED NOT DETECTED [facility] NG Ref Lab NOT DETECTED NOT DETECTED [facility] ThinPrep?? vial Cervix uteri structure / Unknown 10/15/2024 11:42 AM EST 10/16/2024 10:00 AM EST Narrative [facility] - 10/20/2024 10:39 PM EST Collection Date: [id number] by: NERISSA Smith: Cervix Kobe Mauricio CNM LAB CYTOLOGY ORDERABLES F inal Result [facility] [address] [place] [phone] * Pap Smear (10/15/2024 11:42 AM EST) Swab Vaginal structure / Unknown 10/15/2024 11:42 AM EST 10/16/2024 10:00 AM EST Narrative [facility] - 10/21/2024 4:12 PM EST ----- ------- Name: Julio C,Elvia ?Age/Sex: 34/F ? : 1990 Unit#: [id number] ?? Attend Dr: KOBE MAURICIO CNM ?Re10/15/24 ?Status: DEP REF ? [facility] ? Disch: ? ----- ------- SPEC : [id number] ?RECD: 10/16/24-1000 ? STATUS: ??SOUT ? REQ NUM: [id number] ? DOM: 10/15/24-1142 ? SUBM DR: KOBE MAURICIO CNM ? ENTERED: ??10/16/24-1014 ?SP TYPE: Pap Smr ?OTHR : ? ORDERED: ??Pap Smear, PAP path review ? Interpretation ?? General Category: ?? Epithelial cell abnormality. ?? Adequacy: ?Satisfactory for evaluation. ?? Interpretation: ?Atypical squamous cells of undetermined significance. ?Fungal organisms consistent with Camilla species. ? HPV High Risk: ??Positive ? HPV Genotyping 16: ??Negative ?? HPV Genotyping 18: ??Negative ?Clinical Information LMP: Hysterectomy Previous PAP test: Unknown date, hx AARON 3, s/p hyst Other history: History of cervical dysplasia ? Material Received ?? ThinPrep-Vaginal ----- ------- Signed (signature on file) Siria Love 10/21/242 ? ----- ------- ? END OF REPORT ? Kobe KINNEY LAB CYTOLOGY ORDERABLES F inal Result Performing Organization Address City/[facility]/ZIP Co de Phone Number [facility] [address] [place] [address] [phone] * (ABNORMAL) POCT A1C (10/15/2024 11:41 AM EST) Pathologist [facility] Hemoglobin A1C 6.1(A) 4.0 - 6.0 % Blood 10/15/2024 11:4 1 AM EST Kobe KINNEY POINT OF CARE TEST ENTER/ EDIT ORDERABLES Final Result * HEPATITIS C AB W/REFL TO HCV RNA, QN, PCR (07/12/2022 8:40 AM EDT) Pathologist [facility] HEPATITIS C ANTIBODY NON-REACT KELLY NON-REACT KELLY [facility] INDEX 0.20 <1.00 [facility] Comment: ?? HCV antibody was non-reactive. There is no laboratory ?? evidence of HCV infection. ?? In most cases, no further action is required. However, if recent HCV exposure is suspected, a test for HCV RNA (test code 76565) is suggested. ?? For additional information please refer to http://education.AdRoll.Pneuron/faq/DOJ05k8 (This link is being provided for informational/ educational purposes only.) ?? 07/12/2022 8:40 AM EDT Xiomara Hernandez MD HISTORICAL/NON ORDERABLE LABS Fi nal Result [facility] [address] * HIV 1/2 ANTIGEN/ANTIBODY,FOURTH GENERATION W/RFL (07/12/2022 8:40 AM EDT) HIV-1/2 ANTIGEN AND ANTIBODIES, 4TH GENERATION W/ REFLEX NON-REACT KELLY NON-REACT KELLY [facility] Comment: HIV-1 antigen and HIV-1/HIV-2 antibodies were not detected. There is no laboratory evidence of HIV infection. ?? PLEASE NOTE: This information has been disclosed to you from records whose confidentiality may be protected by state law. ??If your state requires such protection, then the state law prohibits you from making any further disclosure of the information without the specific written consent of the person to whom it pertains, or as otherwise permitted by law. A general authorization for the release of medical or other information is NOT sufficient for this purpose. ? For additional information please refer to http://education.Nubee/faq/PPM447 (This link is being provided for informational/ educational purposes only.) ? The performance of this assay has not been clinically validated in patients less than 2 years old. ?? 07/12/2022 8:40 AM EDT us Xiomara Hernandez MD LAB BLOOD ORDERABLES Final Resul t [facility] [address] from Last 3 Months or Most Recently Relevant to Health Maintenance Insurance [employer] Care Teams Wrapper Stemmer Hand Relationship Specialty Start Date End Date Xiomara Hernandez MD [address] [place] [phone] PCP - General Family Medicine 05/02/22
[2025-01-12 19:14] LABS: Reflex LDLD? No
[2025-01-13 08:08] LABS: Syphilis Screen Nonreactive (Nonreactive)
[2025-01-13 08:21] LABS: HBS Num1 > 1000.00 mIU/mL (0-7.99); HBc Num1 0.11 S/CO (0.00-0.79); HIV AB/AG Nonreactive (Nonreactive); HIV Num 1 0.06 S/CO (0.00-0.99); Hepatitis B Core Antibody Nonreactive (Nonreactive); Hepatitis B Surface Antigen Negative (Negative); ~HepC Num1 0.14 S/CO (0.00-0.79); ~Hepatitis B Surface Antibody REACTIVE (Nonreactive); ~Hepatitis C Antibody Nonreactive (Nonreactive)
[2025-01-13 08:35] LABS: Hepatitis A Antibody IgG Nonreactive (Nonreactive); ~Hepatitis A Antibody IgG 0.32 S/CO (0.00-0.99)
[2025-01-13 12:28] LABS: CT PCR NOT DETECTED (Not Detect.); NG PCR NOT DETECTED (Not Detect.)
== END 2025-01-12 14:47 | disposition home or self-care (01) ==
LOC: HO.HHCL 14:46
PROVIDERS: Visit Provider Family Medicine
DX: Z11.3 Encounter for screening for infections with a predominantly sexual mode of transmission (principal); R53.83 Other fatigue; E55.9 Vitamin D deficiency, unspecified; Z13.220 Encounter for screening for lipoid disorders; Z13.1 Encounter for screening for diabetes mellitus
CPT/HCPCS: 80053; 80061; 82306; 83036; 84443; 85025; 86704; 86706; 86708; 86780; 86803; 87340; 87389; 87491; 87591

== ENCOUNTER 2025-01-20 08:40 | Outpatient (REF) | payer OTHER, SELFPAY ==
--- OUTSIDE RECORDS SUMMARY | 2025-01-20 09:14 | XMS_ITS | Encounter Summary ---
Author Organization [employer] Address [address] [facility] 7 [place] [address] Care Team Providers Care Community Service Director Name Role Phone Xiomara Hernandez MD Primary Care Provider [phone] Encounter Details Date Type Department Care Team (Late st Contact Info) Description 01/13/2025 Orders Only [facility] MEDICINE [address] [place], [place] [phone] Xiomara Hernandez MD [address] [place], [place] [phone] Constipation, unspecified constipation type (Primary Dx); Transaminitis Social History Tobacco Use Types Packs/Day Years [...] Description 02/08/2025 2:30 PM EDT Clinical Support [facility] DIABETES/NUTRITION [address] [place] [address] Cate Reeder, RD [address] [place] [address] 03/25/2025 3:00 PM EDT Office Visit [facility] OPTOMETRY [address] [place] [address] Krish, Mica, OD [address] [place] [address] Scheduled Orders Name Type Priority Associated Diagnoses Orde r Schedule Helicobacter pylori??Antigen, EIA, Stool Lab Routine Constipation, unspecified constipation type Transaminitis Expected: 01/13/2025 (Approximate), Expires: 01/13/2026 documented as of this encounter Visit Diagnoses Diagnosis Constipation, unspecified constipation type- Primary Transaminitis Nonspecific elevation of levels of transaminase or lactic acid dehydrogenase (LDH) documented in this encounter Additional Health Concerns Assessment Noted Time PHQ-9 Depression Total Score: 8 01/13/20 25 2:57 PM EST documented as of this encounter Care Teams Community Service Director Relationship Specialty Start Date End Date Xiomara Hernandez MD [address] [place] [address] PCP - General Family Medicine 05/02/22 documented as of this encounter
--- OUTSIDE RECORDS SUMMARY | 2025-01-20 09:14 | XMS_ITS | Encounter Summary ---
Author Organization [employer] Address [address] [facility] 7 [place] [address] Care Team Providers Care Chalk Tester Name Role Phone Xiomara Hernandez MD Primary Care Provider Reason for Visit * Reason Onset Date Comments Results 01/14/2025 Encounter Details Date Type Department Care Team ([facility] st Contact Info) Description 01/14/2025 Telephone [facility] MEDICINE [address] [place], [place] [phone] Xiomara Hernandez MD [address] [place] [address] Results Social History Tobacco Use Types Packs/Day Years [...] encounter Miscellaneous Notes * Telephone Encounter - [place] Alicia RN - 01/14/2025 10:08 AM EST PT called back, explained that card writer hand called about same results that Dr Hernandez already discussed with the pt from. Pt verbalized understanding. * Telephone Encounter - [place] Alicia RN - 01/14/2025 9:15 AM EST Received additional note from Dr Hernandez, who stated she already spoke to the pt regarding below results. * Telephone Encounter - [place] Alicia RN - 01/14/2025 9:10 AM EST Telephone call x1 to pt to advise of below results and plan of care. No answer, left voicemail to call back [facility]. Will task to call again. -- Dr Hernandez Please inform patient that her liver enzymes are slightly elevated. Please ask her to do a stool test. Her cholesterol was mildly elevated. Blood sugar level has improved in just 3 months. Please encourage her to continue making healthy lifestyle choices. Her vitamin D level was mildly low, so I will send vitamin D supplement. Thank you. documented in this encounter Plan of Treatment Upcoming Encounters Date Type Department Care Team (Late st Contact Info) Description 02/08/2025 2:30 PM EDT Clinical Support [facility] DIABETES/NUTRITION [address] [place] [address] Cate Reeder, EZ [address] [place] [address] 03/25/2025 3:00 PM EDT Office Visit [facility] OPTOMETRY [address] [place], [place] [phone] KrishMica, OD [address] [place] [address] documented as of this encounter Visit Diagnoses Not on filedocumented in this encounter Additional Health Concerns Assessment Noted Time PHQ-9 Depression Total Score: 8 01/13/20 25 2:57 PM EST documented as of this encounter Care Teams Chalk Tester Relationship Specialty Start Date End Date Xiomara Hernandez MD [address] [place], [place] [phone] PCP - General Family Medicine 05/02/22 documented as of this encounter
--- OUTSIDE RECORDS SUMMARY | 2025-01-20 09:14 | XMS_ITS | Encounter Summary ---
Author Organization [employer] Address [address] [facility] [address] [place] [address] Care Team Providers Care 7Th Grade Teacher Name Role Phone Xiomara Hernandez MD Primary Care Provider [phone] Encounter Details Date Type Department Care Team [...] Description 02/08/2025 2:30 PM EDT Clinical Support [facility] DIABETES/NUTRITION [address] [place] [address] Cate Reeder, EZ [address] [place] [address] 03/25/2025 3:00 PM EDT Office Visit [facility] OPTOMETRY [address] [place] [address] Krish, Mica, OD [address] [place] [address] documented as of this encounter Visit Diagnoses Not on filedocumented in this encounter Additional Health Concerns Assessment Noted Time PHQ-9 Depression Total Score: 0 12/03/19 24 2:34 PM EST documented as of this encounter Care Teams 7Th Grade Teacher Relationship Specialty Start Date End Date Xiomara Hernandez MD [address] [place] [address] PCP - General Family Medicine 05/02/22 documented as of this encounter
--- OUTSIDE RECORDS SUMMARY | 2025-01-20 09:14 | XMS_ITS | Encounter Summary ---
Author Organization [employer] Address [address] [place] [address] [address] [address] Care Team Providers Care Cloud Engineer Name Role Phone Xiomara Hernandez MD Primary Care Provider [phone] Reason for Referral * Consultation (Routine) - Pending Review Specialty Diagnoses / Procedures Referred By Kamran barajas Referred To Contact Nutrition Diagnoses Prediabetes Xiomara Hernandez MD [address] [place] [address] Phone: tel: fax: Referral ID Status Reason Start Date Expiration Date Visits Requested Visits Authorized [id number] Pending Review Specialty Services Required 4 11/03/2025 1 1 Encounter Details Date Type Department Care Team (Late st Contact Info) Description 11/03/2024 Orders Only [facility] MEDICINE [address] [place], [place] [phone] Xiomara Hernandez MD [address] [place], [place] [phone] Prediabetes (Primary Dx) Social History Tobacco Use [...] Description 02/08/2025 2:30 PM EDT Clinical Support [facility] DIABETES/NUTRITION [address] [place] [address] Cate Reeder, RD [address] [place] [address] 03/25/2025 3:00 PM EDT Office Visit [facility] OPTOMETRY [address] [place] [address] Krish, Mica, OD [address] [place] [address] Scheduled Referrals Name Type Priority Associated Diagnoses Orde r Schedule Referral to Nutrition Therapy Outpatient Referral Routine Prediabetes Expected: 11/03/2024 (Approximate), Expires: 11/03/2025 documented as of this encounter Visit Diagnoses Diagnosis Prediabetes- Primary Other abnormal glucose documented in this encounter Additional Health Concerns Assessment Noted Time PHQ-9 Depression Total Score: 0 12/03/19 24 2:34 PM EST documented as of this encounter Care Teams Cloud Engineer Relationship Specialty Start Date End Date Xiomara Hernandez MD [address] [place] [address] PCP - General Family Medicine 05/02/22 documented as of this encounter
--- OUTSIDE RECORDS SUMMARY | 2025-01-20 09:14 | XMS_ITS | Encounter Summary ---
Author Organization [employer] Address [address] [facility] [address] [place] [address] Care Team Providers Care Crew Director Name Role Phone Xiomara Hernandez MD Primary Care Provider [phone] Reason for Visit * Reason Comments Care Coordination CHW outreach for SDO H food needs - LVM Encounter Details Date Type Department Care Team (Latest Contact Info) Description 01/05/2025 Patient Outreach [facility] MEDICINE [address] [place], [place] [phone] Xiomara Hernandez MD [address] [place] [address] Care Coordination (CHW outreach for SDOH food [...] Wednesdays, and Walk-In Urgent Care Located in [facility]. Patient provided with after-hours line for [facility], , which offer night time triage service and option to transfer toon call provider if needed. documented in this encounter Plan of Treatment Upcoming Encounters Date Type Department Care Team ([facility] st Contact Info) Description 02/08/2025 2:30 PM EDT Clinical Support [facility] DIABETES/NUTRITION [address] [place] [address] [place] [address] 03/25/2025 3:00 PM EDT Office Visit [facility] OPTOMETRY [address] [place] [address] Mica Rutherford, OD [address] [place] [address] documented as of this encounter Visit Diagnoses Not on filedocumented in this encounter Additional Health Concerns Assessment Noted Time PHQ-9 Depression Total Score: 0 12/03/19 24 2:34 PM EST documented as of this encounter Care Teams Crew Director Relationship Specialty Start Date End Date Xiomara Hernandez MD [address] [place] [address] PCP - General Family Medicine 05/02/22 documented as of this encounter
--- OUTSIDE RECORDS SUMMARY | 2025-01-20 09:14 | XMS_ITS | Clinical Summary ---
Author Organization [employer] Address [address] [place] [address] 7 [place] [address] Care Team Providers Care [place]. Representative Name Role Phone Xiomara Hernandez MD Primary Care Provider [phone] Allergies No known active allergies Medications polyvinyl alcohol (Liquifilm Tears) 1.4 % ophthalmic solution one drop in each eye 2 to 4 times a day 03/10/20 21 Active polyethylene glycol, PEG, 3350 (MiraLax) 17 GM/SCOOP powder take (17G) by oral route every day mixed with 8 oz. water, juice, soda, coffee or tea as needed for CONSTIPATION 04/21/20 19 Active senna (Senokot) 8.6 MG tablet TAKE 2 TABLETS BY MOUTH EVERY DAY NEEDED FOR CONSTIPATION 180 tablet 08/06/20 23 Active hydrocortison e 2.5 % cream Apply to affected area once or twice daily 28 g 3 12/03/19 24 Active Magnesium 400 MG capsule Take 1 capsule by mouth twice a day 60 capsule 11 12/03/19 24 Active clotrimazole (Lotrimin) 1 % cream Apply topically 2 times daily. 30 g 5 01/14/20 25 Active clotrimazole (Lotrimin) 1 % cream Apply topically 2 times daily. 30 g 5 12/03/19 24 025 Discontinued(R eorder (will not trigger notification to Pharmacy)) omeprazole (PriLOSEC) [address] Holliday timax:Heartbu rn Take 1 capsule (20 mg) by mouth before breakfast. Do not crush or chew. 90 capsule 3 12/03/19 24 025 Discontinued(M ed list cleanup (will not trigger notification to Pharmacy)) fluconazole (Diflucan) 150 MG tablet One tablet now. 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 - upcoming appointment with STRUCTURAL MANAGER in February 2025 Heartburn 12/13/2023 Assessment & Plan (01/19/2025 11:36 AM EDT): - negative H. Pylori in Oct 2022 - resume omeprazole - avoid NSAIDs and other irritants - consider early referral to GI due to her family history - recheck H. Pylori again Assessment & Plan (12/13/2023 6:35 AM EST): [...] Plan (01/12/2025 1:13 PM EST): Previously seeing [facility] neurology, referred back in Jun 2022. Pt will call to schedule appt. Continue (resume) Magnesium oxide. Assessment & Plan (12/13/2023 6:34 AM EST): Previously seeing [facility] neurology, referred back in Jun 2022. Pt will call to schedule appt. Continue (resume) Magnesium oxide. Assessment & Plan (10/25/2022 12:17 PM EST): ?? Previously seeing [facility] neurology, referred back in Jun 2022. Pt will call to schedule appt. ?? Resume Magnesium oxide. Mild intermittent asthma 08/06/2018 Assessment & Plan (01/12/2025 1:12 PM EST): - dormant at this time - albuterol HFA prn Assessment & Plan (12/13/2023 6:32 AM EST): - dormant at this time - albuterol HFA prn Obesity 06/07/2016 Assessment & Plan (01/19/2025 11:36 AM EDT): - she has made a marked progress since she started seeing our RD - continue working on lifestyle modifications Assessment & Plan (12/13/2023 6:33 AM EST): - continue working on lifestyle modifications Encounters Date Type Department Care Team Description 01/14/2025 Telephone [facility] [address] [place] [phone] Xiomara Hernandez MD Results 01/13/2025 Orders Only [facility] [address] [place] [phone] Xiomara eHrnandez MD Constipation, unspecified constipation type (Primary Dx); Transaminitis 01/12/2025 1:45 PM EST Office Visit [facility] [address] [place] [phone] Xiomara Hernandez MD Routine general medical examination at a health care facility (Primary Dx); Mild intermittent asthma without complication; Constipation, unspecified constipation type; Migraine without status migrainosus, not intractable, unspecified migraine type; Fatigue, unspecified type; Vitamin D deficiency; Routine screening for STI (sexually transmitted infection); Dietary counseling; Exercise counseling; Class 2 obesity due to excess calories without serious comorbidity with body mass index (BMI) of 35.0 to 35.9 in adult; Heartburn; Skin lesion; Cervical dysplasia 01/12/2025 Travel 01/11/2025 Travel 01/06/2025 Telephone [facility] [address] [place] [phone] Nerissa Nelson MA chart prep 01/05/2025 Patient Outreach [address] [address] Xiomara Hernandez MD Care Coordination (CHW outreach for SDOH food needs - LVM ) 01/05/2025 Patient Outreach [address] [address] Xiomara Hernandez MD Pre-visit Planning (SDOH Screening positive and Tobacco screening negative) 12/22/2024 Orders Only [address] [address] Kobe Mauricio CNM ASCUS with positive high risk HPV cervical (Primary Dx) 12/15/2024 2:30 PM EST Nutrition [facility] DIABETES/NUTRITION [address] [place] [phone] Prediabetes (Primary Dx) 12/08/2024 Travel 11/19/[address] [address] Nerissa Nelson MA febuary recall 11/03/2024 Orders Only [address] [address] Xiomara Hernandez MD Prediabetes (Primary Dx) 11/03/[address] [address] Xiomara Hernandez MD Referral from Last 3 Months Immunizations Name Administration [...] Description 02/08/2025 2:30 PM EDT Clinical Support [facility] DIABETES/NUTRITION [address] [place] [address] Cate Reeder, RD [address] [place] [address] 03/25/2025 3:00 PM EDT Office Visit [facility] OPTOMETRY [address] [place] [address] Krish, Mica, OD [address] [place] [address] Health Maintenance Due Date Last Done Comments Family Planning (PISQ) 2003 Pneumococcal Vaccine: Pediatrics (0 to 5 Years) and At-Risk Patients (6 to 49) Years) (1 of 2 - PCV) 2007 COVID-19 Vaccine (3 - season) 2024 03/27/2021, 03/06/2021 Influenza Vaccine (#1) 2024 3, 07/26/2022, 08/17/2020, Additional history exists HPV/Cotest 08/26/2024 [...] 1-dose 75+ series) 2063 HIV Screening Completed 01/12/2025, 07/12/2022 Hepatitis C Screening Completed 01/12/2025, 022 HIB Vaccines Aged Out No longer eligi ble based on patient's age to complete this topic HPV Vaccines Aged Out No longer eligi ble based on patient's age to complete this topic Hepatitis A Vaccines Aged Out No long er eligible based on patient's age to complete this topic Hepatitis B Vaccines Discontinued IPV Vaccines Aged Out No longer eligi [...] 01/12/2025 2:49 PM EST Vitamin D deficiency HEPATITIS A ANTIBODY, TOTAL Routine 01/12/2025 2:49 PM EST Routine screening for STI (sexually transmitted infection) HEPATITIS B SURFACE ANTIGEN, EIA Routine 01/12/2025 2:49 PM EST Routine screening for STI (sexually transmitted infection) HIV 1/2 ANTIGEN/ANTIBODY, FOURTH GENERATION W/RFL Routine 01/12/2025 2:49 PM EST Routine screening for STI (sexually transmitted infection) HEPATITIS B CORE AB TOTAL Routine 01/12/2025 2:49 PM EST Routine screening for STI (sexually transmitted infection) HEPATITIS B SURFACE ANTIBODY, QUALITATIVE Routine 01/12/2025 2:49 PM EST Routine screening for STI (sexually transmitted infection) HEPATITIS C AB W/REFL TO HCV RNA, QN, PCR Routine 01/12/2025 2:49 PM EST Routine screening for STI (sexually transmitted infection) SYPHILIS SCREEN Routine 01/12/2025 2:49 PM EST Routine screening for STI (sexually transmitted infection) LIPID PANEL WITH REFLEX TO DIRECT LDL Routine 01/12/2025 2:49 PM EST Fatigue, unspecified type COMPREHENSIVE METABOLIC PANEL Routine 01/12/2025 2:49 PM EST Fatigue, unspecified type HEMOGLOBIN A1C Routine 01/12/2025 2:49 PM EST Fatigue, unspecified type TSH W/REFLEX TO FT4 Routine 01/12/2025 2 :49 PM EST Fatigue, unspecified type CHLAMYDIA/N. GONORRHOEAE RNA, TMA, UROGENITAL Routine 01/12/2025 2:49 PM EST Routine screening for STI (sexually transmitted infection) PAP SMEAR Routine 10/15/2024 11:42 AM EST History of cervical dysplasia from Last 3 Months or Most Recently Relevant to Health Maintenance Results * Syphilis Screen (01/12/2025 2:49 PM EST) Syphilis Screen Nonreactive Nonreactive [facility] Blood 01/12/2025 2:49 PM EST 01/12/2025 4:06 PM EST us Xiomara Hernandez MD LAB BLOOD ORDERABLES Final Resul t Performing Organization Address [facility] [[email or web address]] Co de Phone Number [facility] [address] [place] [phone] * (ABNORMAL) Vitamin D, 25-Hydroxy, Total, Immunoassay (01/12/2025 2:49 PM EST) Vitamin D 25-OH Total 22.6(L) >30 ng/mL [facility] Comment:Health Based Referen ce Values*< 20 ng/mL Heulnoiww43-23 ng/mL Insufficient> 30 ng/mL Sufficient*Iggy FAIRCHILD. N Engl J Med. 2007;357:266-280Care must be taken in interpreting Vitamin D results fromdifferent laboratories and methodologies. Published datademonstrated that results from patients undergoinghemodialysis may show a negative bias when tested withvarious automated 25-OH vitamin D assays when compared toLC-MS/MS.When testing samples from patients whose predominant form ofVitamin D is Vitamin D2, such as patients receiving VitaminD2 supplementation, results that are subtherapeutic shouldbe confirmed with another method such as LC-MS/MS. Blood Venous blood specimen / Unknown 01/12/2025 2:49 PM EST 01/12/2025 4:06 PM EST us Xiomara Hernandez MD LAB BLOOD ORDERABLES Final Resul t Performing Organization Address [facility] [[email or web address]] Co de Phone Number [facility] [address] [place] [phone] * TSH with Reflex to Free T4 (01/12/2025 2:49 PM EST) TSH reflex Free T4 0.98 0.32 - 4.0 uIU/mL [facility] Blood 01/12/2025 2:49 PM EST 01/12/2025 4:06 PM EST us Xiomara Hernandez MD LAB BLOOD ORDERABLES Final Resul t Performing Organization Address City/[facility]/ZIP Co de Phone Number [facility] [address] [place] [address] [phone] * (ABNORMAL) Lipid Panel with Reflex to Direct LDL (01/12/2025 2:49 PM EST) Triglycerides 135 <150 mg/dL [facility] Comment:Desirable Triglyceri de: less than 150 mg/dLBorderline High Triglyceride 150-199 mg/dLHigh Triglyceride: 200-499 mg/dLVery High Triglyceride: greater than or equal to 5OO mg/dL Cholesterol 202(H) <200 mg/dL [facility] Comment:Desirable Cholestero l: less than 200 mg/dLBorderline High Cholesterol: 200-239 mg/dLHigh Cholesterol: greater than 239 mg/dL LDL Cholesterol Calculated 128(H) <100 mg/dL [facility] Comment:Desirable LDL: less than 100 mg/dLNear Optimal/Above Optimal LDL: 110- 129 mg/dLBorderline High LDL: 130-159 mg/dLHigh LDL: 160-189 mg/dLVery High LDL: greater than or equal to 190 mg/dL HDL Cholesterol 47 >40 mg/dL [facility] Comment:Desirable HDL: great er than 40 mg/dL Note: This HDL assay may give artificially low results in patients with liver disease. Blood 01/12/2025 2:49 PM EST 01/12/2025 4:06 PM EST us Xiomara Hernandez MD LAB BLOOD ORDERABLES Final Resul t Performing Organization Address [facility] [[email or web address]] Co de Phone Number [facility] [address] [place] [address] [phone] * CBC auto differential (01/12/2025 2:49 PM EST) White Blood Count 6.0 4.8 - 10.8 X10*3/uL [facility] Red Blood Count 4.59 4.20 - 5.50 X10*6/uL [facility] Hemoglobin 13.0 12.0 - 16.0 g/dl [facility] Hematocrit 39.9 37.0 - 47.0 % [facility] Mean Corpuscular Volume 86.9 80.0 - 98.0 fL [facility] Mean Corpuscular Hemoglobin 28.3 27.0 - 33.0 pg [facility] Mean Corpuscular HGB Conc 32.6 31.0 - 35.0 g/dl [facility] Red Cell Distribution Width 13.0 11.0 - 16.0 % [facility] Platelet Count 316 160 - 400 X10*3/uL [facility] Mean Platelet Volume 10.2 9.4 - 12.3 fL [facility] Neutrophils Percent Auto 54.4 45 - 73 % [facility] Imm Gran Pct Auto 0.2 0.0 - 0.4 % [facility] Lymphocytes Percent Auto 37.0 20 - 40 % [facility] Monocytes Percent Auto 6.6 2 - 11 % [facility] Eosinophils Percent Auto 1.3 0 - 4 % [facility] Basophils Percent Auto 0.5 0 - 2 % [facility] NRBC Pct Auto 0.0 0.0 - 0.2 /100WBC [facility] Neutrophils Absolute Auto 3.2 2.0 - 8.3 x10*3/uL [facility] Imm Gran Abs Auto 0.01 0.00 - 0.03 X10*3/uL [facility] Lymphocytes Absolute Auto 2.2 1.2 - 4.9 X10*3/uL [facility] Monocytes Absolute Auto 0.4 0.1 - 1.2 X10*3/uL [facility] Eosinophils Absolute Auto 0.1 0.0 - 0.4 X10*3/uL [facility] Basophils Absolute Auto 0.0 0.0 - 0.2 X10*3/uL [facility] NRBC Abs Auto 0.000 0.0 - 0.012 X10*3/uL [facility] Blood Venous blood specimen / Unknown 01/12/2025 2:49 PM EST 01/12/2025 4:06 PM EST us Xiomara Sakurai MD LAB BLOOD ORDERABLES Final Resul t Performing Organization Address [facility] de Phone Number [facility] [address] [place] [phone] * Hepatitis C Antibody with Reflex to HCV, RNA, Quantitative, Real-Time PCR (01/12/2025 2:49 PM EST) Hepatitis C Antibody Nonreactive Nonreactive [facility] Comment:Antibodies to HCV no t detected; does not exclude early acuteHCV infection. Blood Venous blood specimen / Unknown 01/12/2025 2:49 PM EST 01/12/2025 4:06 PM EST Xiomara Hernandez MD LAB BLOOD ORDERABLES Final Resul t Performing Organization Address [facility] de Phone Number [facility] [address] [place] [phone] * Hepatitis A Antibody, Total (01/12/2025 2:49 PM EST) Pathologist [facility] Hepatitis A Antibody IgG Nonreactive Nonreactive [facility] Blood Venous blood specimen / Unknown 01/12/2025 2:49 PM EST 01/12/2025 4:06 PM EST Xiomara Hernandez MD LAB BLOOD ORDERABLES Final Resul t Performing Organization Address [facility] de Phone Number [facility] [address] [place] [phone] * Chlamydia/N. Gonorrhoeae RNA, TMA, Urogenitial (01/12/2025 2:49 PM EST) Pathologist [facility] CT PCR NOT DETECTED Not Detect. [facility] Comment:A not detected test result does not exclude the possibilityof infection because test results can be affected byimproper specimen collection, concurrent antibiotic therapy,or the number of organisms in the specimen which may bebelow the sensitivity of the test. As with many diagnostictests, results from the Xpert CT/NG assay should beinterpreted in conjunction with other laboratory andclinical data available to the clinician.Xpert CT/NG performance has not been evaluated in patientsless than 14 years of age. The assay should not be used forthe evaluationof suspected sexual abuse or for other medico-legalindications. Additional testing is recommended in anycircumstance when false positive or false negative resultscould lead to adverse medical, social or psychologicalconsequences. NG PCR NOT DETECTED Not Detect. [facility] Comment:A not detected test result does not exclude the possibilityof infection because test results can be affected byimproper specimen collection, concurrent antibiotic therapy,or the number of organisms in the specimen which may bebelow the sensitivity of the test. As with many diagnostictests, results from the Xpert CT/NG assay should beinterpreted in conjunction with other laboratory andclinical data available to the clinician.Xpert CT/NG performance has not been evaluated in patientsless than 14 years of age. The assay should not be used forthe evaluationof suspected sexual abuse or for other medico-legalindications. Additional testing is recommended in anycircumstance when false positive or false negative resultscould lead to adverse medical, social or psychologicalconsequences. Urine (Urine, Random) 01/12/2025 2:49 PM EST 01/12/2025 4:36 PM EST Narrative [facility] - 01/13/2025 12:28 PM EST Urine us Xiomara Hernandez MD LAB MICROBIOLOGY - GENERAL ORDER LENA Final Result [facility] [address] [place] [phone] * Hepatitis B surface antigen, EIA (01/12/2025 2:49 PM EST) Hepatitis B Surface Ag Negative Negative [facility] Blood Venous blood specimen / Unknown 01/12/2025 2:49 PM EST 01/12/2025 4:06 PM EST Xiomara Hernandez MD LAB BLOOD ORDERABLES Final Resul t Performing Organization Address City/[facility] [[email or web address]] Co de Phone Number [facility] [address] [place] [phone] * Hepatitis B Core Antibody, Total (01/12/2025 2:49 PM EST) Hepatitis B Core Antibody Nonreactive Nonreactive [facility] Blood Venous blood specimen / Unknown 01/12/2025 2:49 PM EST 01/12/2025 4:06 PM EST us Xiomara Hernandez MD LAB BLOOD ORDERABLES Final Resul t Performing Organization Address [facility] de Phone Number [facility] [address] [place] [phone] * HIV-1/2 Antigen and Antibodies, Fourth Generation, with Reflexes (01/12/2025 2:49 PM EST) HIV AB/AG Nonreactive Nonreactive [facility] Comment:HIV-1 p24 Ag and/or HIV-1/HIV-2 Ab not detected.A test result that is nonreactive does not exclude thepossibility of exposure to or infection with HIV-1 and/orHIV-2. Nonreactive results in this assay for individualswith prior exposure to HIV-1 and/or HIV-2 may be due toantigen and antibody levels that are below the limit ofdetection of this assay.The [email or web address] HIV Ag/Ab Combo assay result andsupplemental assay results should be interpreted inconjunction with the patient's clinical presentation,history and other laboratory results. If the results areinconsistent with clinical evidence, additional testing issuggested to confirm the result. Blood Venous blood specimen / Unknown 01/12/2025 2:49 PM EST 01/12/2025 4:06 PM EST us Xiomara Hernandez MD LAB BLOOD ORDERABLES Final Resul t Performing Organization Address [facility] [[email or web address]] Co de Phone Number [facility] [address] [place] [address] [phone] * Hepatitis B Surface Antibody, Qualitative (01/12/2025 2:49 PM EST) Pathologist [facility] ~Hepatitis B Surface Antibody REACTIVE Nonreactive [facility] Comment:REACTIVE: > 11.99 mI U/mL Blood Venous blood specimen / Unknown 01/12/2025 2:49 PM EST 01/12/2025 4:06 PM EST Xiomara Hernandez MD LAB BLOOD ORDERABLES Final Resul t Performing Organization Address [facility] [[email or web address]] Co de Phone Number [facility] [address] [place] [address] [phone] * Hemoglobin A1c (01/12/2025 2:49 PM EST) Pathologist [facility] Hemoglobin A1c 5.7 <6.0 % [facility] Comment:Hemoglobin A1C Refer ence Range Adults: 4.8 - 6.0 % Non diabetic: < 6.0 % Goal: < 7.0 %Additional Action Suggested: > 8.0 %Note: Hemoglobin A1c results are invalid for patients with abnormal amounts of HbF. Blood transfusions may impact the HbA1c concentration in the patient sample. Estimated Average Glucose 117 mg/dL [facility] Comment:eAG = Estimated ave rage glucose which is %A1C expressed asaverage glucose, using the formula of the V1C-NyhnzsaMglnsjt Glucose study (ADAG), Diabetes Care, Vol.31,#8,2007 Blood Venous blood specimen / Unknown 01/12/2025 2:49 PM EST 01/12/2025 4:06 PM EST Xiomara Hernandez MD LAB BLOOD ORDERABLES Final Resul t Performing Organization Address [facility] [[email or web address]] Co de Phone Number [facility] [address] [place] [phone] * (ABNORMAL) Comprehensive Metabolic Panel (01/12/2025 2:49 PM EST) Pathologist [facility] Sodium 138 135 - 145 mmol/L [facility] Potassium 4.1 3.3 - 5.1 mmol/L [facility] Chloride 104 96 - 108 mmol/L [facility] Carbon Dioxide 27 22 - 29 mmol/L [facility] Anion Gap 11(L) 12 - 20 [facility] Urea Nitrogen (BUN) 16 9 - 16 mg/dL [facility] Creatinine, Serum 0.85 0.5 - 1.4 mg/dL [facility] Estimated Glomerular Filt Rate >60 [facility] Comment:Chronic Kidney Disea se: Estimated GFR < 60 mL/min/1.58m4Qpokxj Kidney Disease: Estimated GFR < 15 mL/min/1.73m2 Glucose 89 60 - 115 mg/dL [facility] Calcium 10.0 8.4 - 10.2 mg/dL [facility] Bilirubin, Total 0.4 0.0 - 1.0 mg/dL [facility] Aspartate Amino Transferase 33(H) 5 - 31 U/L [facility] Alanine Aminotransferase 39(H) 0 - 31 U/L [facility] Total Protein 8.6(H) 6.5 - 8.0 g/dL [facility] Albumin Level 4.5 3.5 - 5.0 g/dL [facility] Alkaline Phosphatase 48 39 - 117 U/L [facility] Blood Venous blood specimen / Unknown 01/12/2025 2:49 PM EST 01/12/2025 4:06 PM EST us Xiomara Hernandez MD LAB BLOOD ORDERABLES Final Resul t [facility] [address] [place], [place] [phone] * Pap Smear (10/15/2024 11:42 AM EST) Swab Vaginal structure / Unknown 10/15/2024 11:42 AM EST 10/16/2024 10:00 AM EST Narrative [facility] - 10/21/2024 4:12 PM EST ----- ------- Name: Marianela Bunch ?Age/Sex: 34/F ? : 1990 Unit#: [id number] ?? Attend Dr: KOBE MAURICIO CNM ?Re10/15/24 ?Status: DEP REF ? [facility] Disch: ? ----- ------- SPEC : [id number] ?RECD: 10/16/24-999 ? STATUS: ??SOUT ? REQ NUM: [id number] ? DOM: 10/15/24-1142 ? SUBM DR: KOBE [...] ----- ------- ? END OF REPORT ? us Kobe Mauricio CNM LAB CYTOLOGY ORDERABLES F inal Result [facility] [address] [place] [address] [phone] from Last 3 Months or Most Recently Relevant to Health Maintenance Insurance [employer] Care Teams [place]. Representative Relationship Specialty Start Date End Date Xiomara Hernandez MD [address] [place] [phone] PCP - General Family Medicine 05/02/22
--- OUTSIDE RECORDS SUMMARY | 2025-01-20 09:14 | XMS_ITS | Encounter Summary ---
Author Organization [employer] Address [address] [place] [id number] Care Team Providers Care Teacher Aide Clerical Name Role Phone Xiomara Hernandez MD Primary Care Provider [phone] Encounter Details Date Type Department Care Team (Late Contact Info) Description 06/07/2023 Abstract [facility] MEDICINE [address] [place] [address] Xiomara Hernandez MD [address] [place] [address] Social History Tobacco Use Types Packs/Day Years [...] 2:30 PM EDT Clinical Support [facility] DIABETES/NUTRITION [address] [place] [address] [place] [address] 03/25/2025 3:00 PM EDT Office Visit [facility] OPTOMETRY [address] [place] [address] KrishMica lowe, OD [address] [place] [address] documented as of this encounter Visit Diagnoses Not on filedocumented in this encounter Care Teams Teacher Aide Clerical Relationship Specialty Start Date End Date Xiomara Hernandez MD [address] [place] [address] PCP - General Family Medicine 05/02/22 documented as of this encounter
--- OUTSIDE RECORDS SUMMARY | 2025-01-20 09:14 | XMS_ITS | Encounter Summary ---
Author Organization [employer] Address [address] [facility] [address] [place] [address] Care Team Providers Care Aircraft Power Plant Assembler Name Role Phone Xiomara Hernandez MD Primary Care Provider Reason for Visit * Reason Onset Date Comments chart prep 01/06/2025 Encounter Details Date Type Department Care Team ([facility] st Contact Info) Description 01/06/2025 Telephone [facility] MEDICINE [address] [place] [address] Nerissa Nelson MA chart prep Social History [...] Description 02/08/2025 2:30 PM EDT Clinical Support [facility] DIABETES/NUTRITION [address] [place] [address] Cate Reeder, EZ [address] [place] [address] 03/25/2025 3:00 PM EDT Office Visit [facility] OPTOMETRY [address] [place] [address] Krish, Mica, OD [address] [place] [address] documented as of this encounter Visit Diagnoses Not on filedocumented in this encounter Additional Health Concerns Assessment Noted Time PHQ-9 Depression Total Score: 0 12/03/19 24 2:34 PM EST documented as of this encounter Care Teams Aircraft Power Plant Assembler Relationship Specialty Start Date End Date Xiomara Hernandez MD [address] [place] [address] PCP - General Family Medicine 05/02/22 documented as of this encounter
--- OUTSIDE RECORDS SUMMARY | 2025-01-20 09:14 | XMS_ITS | Encounter Summary ---
Author Organization [employer] Address [address] [facility] [address] [place] [address] Care Team Providers Care Gleason Gear Generator Name Role Phone Xiomara Hernandez MD Primary Care Provider [phone] Encounter Details Date Type Department Care Team [...] Description 02/08/2025 2:30 PM EDT Clinical Support [facility] DIABETES/NUTRITION [address] [place] [address] Cate Reeder, EZ [address] [place] [address] 03/25/2025 3:00 PM EDT Office Visit [facility] OPTOMETRY [address] [place] [address] Krish, Mica, OD [address] [place] [address] documented as of this encounter Visit Diagnoses Not on filedocumented in this encounter Additional Health Concerns Assessment Noted Time PHQ-9 Depression Total Score: 8 01/13/20 25 2:57 PM EST documented as of this encounter Care Teams Gleason Gear Generator Relationship Specialty Start Date End Date Xiomara Hernandez MD [address] [place] [address] PCP - General Family Medicine 05/02/22 documented as of this encounter
--- OUTSIDE RECORDS SUMMARY | 2025-01-20 09:14 | XMS_ITS | Encounter Summary ---
Author Organization [employer] Address [address] [place] [address] Care Team Providers Care Transfer Controller Name Role Phone Xiomara Hernandez MD Primary Care Provider [phone] Reason for Visit * Reason Onset Date Comments Med Refill 10/13/2023 Encounter Details Date Type Department Care Team (Late st Contact Info) Description 10/13/2023 Refill [facility] MEDICINE [address] [place] [address] Xiomara Hernandez MD [address] [place] [address] Social History Tobacco Use Types Packs/Day Years [...] Description 02/08/2025 2:30 PM EDT Clinical Support [facility] DIABETES/NUTRITION [address] [place] [address] [place] [address] 03/25/2025 3:00 PM EDT Office Visit [facility] OPTOMETRY [address] [place] [address] Mica Rutherford, OD [address] [place] [address] documented as of this encounter Visit Diagnoses Not on filedocumented in this encounter Care Teams Transfer Controller Relationship Specialty Start Date End Date Xiomara Hernandez MD [address] [place] [address] PCP - General Family Medicine 05/02/22 documented as of this encounter
--- OUTSIDE RECORDS SUMMARY | 2025-01-20 09:14 | XMS_ITS | Encounter Summary ---
Author Organization [employer] Address [address] [place] [address] [address] [place] [address] Care Team Providers Care Mold Closer Helper Name Role Phone Xiomara Hernandez MD Primary Care Provider Encounter Details Date Type Department Care Team (Late st Contact Info) Description 01/12/2025 1:45 PM EST Office Visit [facility] [address], [place] [phone] Xiomara Hernandez MD [address] [place], [place] [phone] Routine general medical examination at a health [...] in adult; Heartburn; Skin lesion; Cervical dysplasia Social History Tobacco Use Types Packs/Day Years [...] 2:18 PM EST documented in this encounter Progress Notes * Xiomara Hernandez MD - 01/12/2025 1:45 PM EST Marianela Bunch is a 34 y.o. female who presents for physical exam. Subjective Our last encounter was 12/03/2023. Physical Exam. We discussed about her feet. Seen by Shannan recently on 10/15/24 for vaginal discharge. Cotest done. Dx vaginal candidiasis. Rx fluconazole PO. 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 A1C 6.1%. Referred to [facility] for prediabetes. She has been seeing Anai Reeder RD, since Dec 2024. Today: Pt reports she completed her pap smear and she has an appointment in February for her colonoscopy. Pt notes she had a hysterectomy and denies any itchiness. 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 Pt reports she went to a dietitian for lifestyle modifications. She has started to follow their instructions and is hoping to lose weight. Pt also confirms she has been feeling constipated and that she has been feeling tired as well. Noting she will sleep well but she is still tired when she wakes up. Pt denies smoking cigarettes or marijuana, and denies drinking EtOH. Pt agrees to have her thyroid checked. Pt agrees to routine blood testing. Pt declines the Flu vaccine. Pt denies any issues with her Asthma. Pt notes she currently works at the [facility] [employer] [employer]. Past medical history Patient Active Problem List Diagnosis Migraine Mild intermittent asthma Obesity Constipation Heartburn Skin lesion Cervical dysplasia Past surgical history: Past Surgical History: Procedure Laterality Date HYSTERECTOMY ovaries remain, done for CIN3 REFRACTIVE SURGERY Hospitalizations / major illness: Current Outpatient Medications on File Prior to Visit Medication Sig Dispense Refill hydrocortisone 2.5 % cream Apply to affected area once or twice daily 28 g 3 Magnesium 400 MG capsule Take 1 capsule by mouth twice a day 60 capsule 11 polyethylene glycol, PEG, 3350 (MiraLax) 17 GM/SCOOP powder take (17G) by oral route every day mixed with 8 oz. water, juice, soda, coffee or tea as needed for CONSTIPATION polyvinyl alcohol (Liquifilm Tears) 1.4 % ophthalmic solution one drop in each eye 2 to 4 times a day senna (Senokot) 8.6 MG tablet TAKE 2 TABLETS BY MOUTH EVERY DAY NEEDED FOR CONSTIPATION 180 tablet 0 [DISCONTINUED] clotrimazole (Lotrimin) 1 % cream Apply topically 2 times daily. 30 g 5 [DISCONTINUED] fluconazole (Diflucan) 150 MG tablet One tablet now. May repeat in 72h if needed 1 tablet 1 [DISCONTINUED] omeprazole (PriLOSEC) [address] capsule Take 1 capsule (20 mg) by mouth before breakfast. Do not crush or chew. 90 capsule 3 No current facility-administered medications on file prior to visit. No Known Allergies Family history: Family History Problem Relation Name Age of Onset Hypertension Mother Ernestina Liver cancer Father Luis Antonio at 50 Diabetes Father Luis Antonio Cancer Mother's Sister Jena Stomach cancer Maternal Grandmother Dementia Paternal Grandmother Osteoporosis Neg Hx Socially history: - [facility] screen: High risk for food insecurity. - Occupation: [employer] [place] - Housing: Stable - Household members: Lives with her and son, 3 dogs - Tobacco: no - Alcohol: no - Drugs: no Safety - Driving: yes - Firearm: no - Intimate Partner Violence Screening Immunizations: Dental Care: Needs to make appointment, its been some time. -[facility] [place] Cancer screening: Lung - not indicated Breast - average risk, start at age 40 Colon - average - high risk (family Hx GI cancer), start at age 45 or earlier depending on symptoms Bone health: Risk factors for osteoporosis: DEXA HCP MOLST Review of Systems Constitutional: Negative for activity change, appetite change and fever. Respiratory: Negative for shortness of breath. Cardiovascular: Negative for chest pain. Objective Vitals: 01/12/25 1418 BP: 133/79 Pulse: (!) 49 Resp: 15 Temp: 97.3 ??F (36.3 ??C) TempSrc: Temporal SpO2: 98% Weight: 223 lb (101 kg) Height: 5' 6.54 (1.69 m) Physical Exam Constitutional: General: She is not in acute distress. Appearance: Normal appearance. She is not ill-appearing. HENT: Head: Normocephalic and atraumatic. Mouth/Throat: Mouth: Mucous membranes are moist. Eyes: Extraocular Movements: Extraocular movements intact. Pupils: Pupils are equal, round, and reactive to light. Cardiovascular: Rate and Rhythm: Normal rate and regular rhythm. Heart sounds: No murmur heard. Pulmonary: Effort: Pulmonary effort is normal. No respiratory distress. Breath sounds: Normal breath sounds. No wheezing or rhonchi. Skin: General: Skin is warm. Neurological: Mental Status: She is alert. Mental status is at baseline. Psychiatric: Mood and Affect: Mood normal. Results: Lab Results Component Value Date NA 138 01/12/2025 K 4.1 01/12/2025 CL 104 01/12/2025 CO2 27 01/12/2025 BUN 16 01/12/2025 CREATININE 0.85 01/12/2025 EGFR >60 01/12/2025 GLUCOSE 89 01/12/2025 TOTALBILIRUB 0.4 01/12/2025 AST 33 (H) 01/12/2025 ALT 39 (H) 01/12/2025 TOTPROTEIN 8.6 (H) 01/12/2025 ALB 4.5 01/12/2025 ALP 48 01/12/2025 Lab Results Component Value Date TRIG 135 01/12/2025 CHOL 202 (H) 01/12/2025 LDLCHOLCAL 128 (H) 01/12/2025 HDL 47 01/12/2025 Lab Results Component Value Date HGBA1C 5.7 01/12/2025 Lab Results Component Value Date WBC 6.0 01/12/2025 HGB 13.0 01/12/2025 HCT 39.9 01/12/2025 PLT 316 01/12/2025 MCV 86.9 01/12/2025 Screening and Health Care Maintenance: PHQ-2/9 Score: Patient Health Questionnaire-9 Score: 8 (01/12/2025 2:57 PM) Patient Health Questionnaire-2 Score: 2 (01/12/2025 2:57 PM) Thoughts that you would be better off or hurting yourself in some way: Not at all (01/12/2025 2:57 PM) DAKSHA-7 Score: No data recorded Health Maintenance Due Topic Date Due Family Planning (PISQ) Never done Pneumococcal Vaccine: Pediatrics (0 to 5 Years) and At-Risk Patients (6 to 49) Years) (1 of 2 - PCV) Never done Influenza Vaccine (1) 07/12/2024 COVID-19 Vaccine (3 - 2023- season) 2024 Colposcopy Never done Cervical Cancer Screening 10/15/2025 Assessment/Plan 1. Routine general medical examination at a health care facility (Primary) 2. Mild intermittent asthma without complication Assessment & Plan: - dormant at this time - albuterol HFA prn 3. Constipation, unspecified constipation type Assessment & Plan: - continue judicious use of laxative - add magnesium oxide 4. Migraine without status migrainosus, not intractable, unspecified migraine type Assessment & Plan: Previously seeing [facility] neurology, referred back in Jun 2022. Pt will call to schedule appt. Continue (resume) Magnesium oxide. 5. Fatigue, unspecified type - TSH with Reflex to Free T4; Future - Hemoglobin A1c; Future - Comprehensive Metabolic Panel; Future - Lipid Panel with Reflex to Direct LDL; Future - TSH with Reflex to Free T4 - Hemoglobin A1c - Comprehensive Metabolic Panel - Lipid Panel with Reflex to Direct LDL - CBC auto differential; Future - CBC auto differential 6. Vitamin D deficiency - Vitamin D, 25-Hydroxy, Total, Immunoassay; Future - Vitamin D, 25-Hydroxy, Total, Immunoassay 7. Routine screening for STI (sexually transmitted infection) - Syphilis Screen; Future - Hepatitis C Antibody with Reflex to HCV, RNA, Quantitative, Real-Time PCR; Future - Hepatitis B Surface Antibody, Qualitative; Future - Hepatitis B Core Antibody, Total; Future - Chlamydia/N. Gonorrhoeae RNA, TMA, Urogenitial; Future - HIV-1/2 Antigen and Antibodies, Fourth Generation, with Reflexes; Future - Hepatitis B surface antigen, EIA; Future - Hepatitis A Antibody, Total; Future - Syphilis Screen - Hepatitis C Antibody with Reflex to HCV, RNA, Quantitative, Real-Time PCR - Hepatitis B Surface Antibody, Qualitative - Hepatitis B Core Antibody, Total - Chlamydia/N. Gonorrhoeae RNA, TMA, Urogenitial - HIV-1/2 Antigen and Antibodies, Fourth Generation, with Reflexes - Hepatitis B surface antigen, EIA - Hepatitis A Antibody, Total 8. Dietary counseling 9. Exercise counseling 10. Class 2 obesity due to excess calories without serious comorbidity with body mass index (BMI) of 35.0 to 35.9 in adult Assessment & Plan: - she has made a marked progress since she started seeing our RD - continue working on lifestyle modifications 11. Heartburn Assessment & Plan: - negative H. Pylori in Oct 2022 - resume omeprazole - avoid NSAIDs and other irritants - consider early referral to GI due to her family history - recheck H. Pylori again 12. Skin lesion Assessment & Plan: - feet - some lesions appear plantar wart - some rash had improved with azol and steroid cream 13. 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 - upcoming appointment with FACILITATOR in February 2025 No Known Allergies Current Outpatient Medications Medication Instructions clotrimazole (Lotrimin) 1 % cream Topical, 2 times daily hydrocortisone 2.5 % cream Apply to affected area once or twice daily Magnesium 400 MG capsule Take 1 capsule by mouth twice a day polyethylene glycol, PEG, 3350 (MiraLax) 17 GM/SCOOP powder take (17G) by oral route every day mixed with 8 oz. water, juice, soda, coffee or tea as needed for CONSTIPATION polyvinyl alcohol (Liquifilm Tears) 1.4 % ophthalmic solution one drop in each eye 2 to 4 times a day senna (Senokot) 8.6 MG tablet TAKE 2 TABLETS BY MOUTH EVERY DAY NEEDED FOR CONSTIPATION Follow-up: 3 months or sooner if any problem arises. Scribe Attestation: IDesirae, am serving as a scribe to document services personally performed by Xiomara Hernandez MD, based on the patient's response to questions by provider and provides statements to me. 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 - upcoming appointment with FACILITATOR in February 2025 * Assessment & Plan Note - Xiomara Hernandez MD - 01/19/2025 11:38 AM EDTAssociated Problem(s): Skin lesion - feet - some lesions appear plantar wart - some rash had improved with azol and steroid cream * Assessment & Plan Note - Xiomara Hernandez MD - 01/19/2025 11:36 AM EDTAssociated Problem(s): Obesity - she has made a marked progress since she started seeing our RD - continue working on lifestyle modifications * Assessment & Plan Note - Xiomara Hernandez MD - 01/19/2025 11:35 AM EDTAssociated Problem(s): Heartburn - negative H. Pylori in Oct 2022 - resume omeprazole - avoid NSAIDs and other irritants - consider early referral to GI due to her family history - recheck H. Pylori again * Assessment & Plan Note - Desirae Fernandes MA - 01/12/2025 1:13 PM ESTAssociated Problem(s): Migraine Previously seeing [facility] neurology, referred back in Jun 2022. [...] Description 02/08/2025 2:30 PM EDT Clinical Support [facility] [address] [place] [address] Cate Reeder, RD [address] [place] [address] 03/25/2025 3:00 PM EDT Office Visit [facility] [address] [place] [address] Krish, Mica, OD [address] [place] [address] documented as of this encounter Procedures Procedure Name Priority Date/Time Associated Diagnosis Comments SYPHILIS SCREEN Routine 01/12/2025 2:49 PM EST Routine screening for STI (sexually transmitted infection) VITAMIN D,25-OH,TOTAL,IA Routine 01/12/2025 2:49 PM EST Vitamin D deficiency TSH W/REFLEX TO FT4 Routine 01/12/2025 2 :49 PM EST Fatigue, unspecified type LIPID PANEL WITH REFLEX TO DIRECT LDL Routine 01/12/2025 2:49 PM EST Fatigue, unspecified type CBC WITH AUTO DIFFERENTIAL Routine 01/12/2025 2:49 PM EST Fatigue, unspecified type HEPATITIS C AB W/REFL TO HCV RNA, QN, PCR Routine 01/12/2025 2:49 PM EST Routine screening for STI (sexually transmitted infection) HEPATITIS A ANTIBODY, TOTAL Routine 01/12/2025 2:49 PM EST Routine screening for STI (sexually transmitted infection) CHLAMYDIA/N. GONORRHOEAE RNA, TMA, UROGENITAL Routine 01/12/2025 [...] Routine screening for STI (sexually transmitted infection) HEMOGLOBIN A1C Routine 01/12/2025 2:49 PM EST Fatigue, unspecified type COMPREHENSIVE METABOLIC PANEL Routine 01/12/2025 2:49 PM EST Fatigue, unspecified type documented in this encounter Results * CBC auto differential (01/12/2025 2:49 PM EST) White Blood Count 6.0 4.8 - 10.8 X10*3/uL [facility] Red Blood Count 4.59 4.20 - 5.50 X10*6/uL [facility] Hemoglobin 13.0 12.0 - 16.0 g/dl [facility] Hematocrit 39.9 37.0 - 47.0 % [facility] Mean Corpuscular Volume 86.9 80.0 - 98.0 fL [facility] Mean Corpuscular Hemoglobin 28.3 27.0 - 33.0 pg [facility] Mean Corpuscular HGB Conc 32.6 31.0 - 35.0 g/dl [facility] Red Cell Distribution Width 13.0 11.0 - 16.0 % [facility] Platelet Count 316 160 - 400 X10*3/uL [facility] Mean Platelet Volume 10.2 9.4 - 12.3 fL [facility] Neutrophils Percent Auto 54.4 45 - 73 % [facility] Imm Gran Pct Auto 0.2 0.0 - 0.4 % [facility] Lymphocytes Percent Auto 37.0 20 - 40 % [facility] Monocytes Percent Auto 6.6 2 - 11 % [facility] Eosinophils Percent Auto 1.3 0 - 4 % [facility] Basophils Percent Auto 0.5 0 - 2 % [facility] NRBC Pct Auto 0.0 0.0 - 0.2 /100WBC [facility] Neutrophils Absolute Auto 3.2 2.0 - 8.3 x10*3/uL [facility] Imm Gran Abs Auto 0.01 0.00 - 0.03 X10*3/uL [facility] Lymphocytes Absolute Auto 2.2 1.2 - 4.9 X10*3/uL [facility] Monocytes Absolute Auto 0.4 0.1 - 1.2 X10*3/uL [facility] Eosinophils Absolute Auto 0.1 0.0 - 0.4 X10*3/uL [facility] Basophils Absolute Auto 0.0 0.0 - 0.2 X10*3/uL [facility] NRBC Abs Auto 0.000 0.0 - 0.012 X10*3/uL [facility] Blood Venous blood specimen / Unknown 01/12/2025 2:49 PM EST 01/12/2025 4:06 PM EST us Xiomara Hernandez MD LAB BLOOD ORDERABLES Final Resul t [facility] [address] [place] [phone] * (ABNORMAL) Vitamin D, 25-Hydroxy, Total, Immunoassay (01/12/2025 2:49 PM EST) Vitamin D 25-OH Total 22.6(L) >30 ng/mL [facility] Comment:Health Based Referen ce Values*< 20 ng/mL Mpanyqgxm32-60 ng/mL Insufficient> 30 ng/mL Sufficient*Iggy FAIRCHILD. N [...] ORDERABLES Final Resul t Performing Organization Address City/[facility] Co de Phone Number [facility] [address] [place] [phone] * Hepatitis A Antibody, Total (01/12/2025 2:49 PM EST) Hepatitis A Antibody IgG Nonreactive Nonreactive [facility] Blood Venous blood specimen / Unknown 01/12/2025 2:49 PM EST 01/12/2025 4:06 PM EST us Xiomara Hernandez MD LAB BLOOD ORDERABLES Final Resul t Performing Organization Address [facility] Co de Phone Number [facility] [address] [place] [phone] * Hepatitis B surface antigen, EIA (01/12/2025 2:49 PM EST) Pathologist [facility] Hepatitis B Surface Ag Negative Negative [facility] Blood Venous blood specimen / Unknown 01/12/2025 2:49 PM EST 01/12/2025 4:06 PM EST Xiomara Hernandez MD LAB BLOOD ORDERABLES Final Resul t Performing Organization Address [facility] Phone Number [facility] [address] [place] [phone] * HIV-1/2 Antigen and Antibodies, Fourth Generation, with Reflexes (01/12/2025 2:49 PM EST) HIV AB/AG Nonreactive Nonreactive [facility] Comment:HIV-1 p24 Ag and/or HIV-1/HIV-2 Ab not detected.A test result that is nonreactive does not exclude thepossibility of exposure to or infection with HIV-1 and/orHIV-2. Nonreactive results in this assay for individualswith prior exposure to HIV-1 and/or HIV-2 may be due toantigen and antibody levels that are below the limit ofdetection of this assay.The [email or web address] HIV Ag/Ab Combo assay result andsupplemental assay results should be interpreted inconjunction with the patient's clinical presentation,history and other laboratory results. If the results areinconsistent with clinical evidence, additional testing issuggested to confirm the result. Blood Venous blood specimen / Unknown 01/12/2025 2:49 PM EST 01/12/2025 4:06 PM EST us Xiomara Hernandez MD LAB BLOOD ORDERABLES Final Resul t [facility] [address] [place] [phone] * Chlamydia/N. Gonorrhoeae RNA, TMA, Urogenitial (01/12/2025 2:49 PM EST) CT PCR NOT DETECTED Not Detect. [facility] Comment:A not detected test result does [...] psychologicalconsequences. NG PCR NOT DETECTED Not Detect. [facility] Comment:A not detected test result does [...] PM EST 01/12/2025 4:36 PM EST Narrative [facility] - 01/13/2025 12:28 PM EST Urine Xiomara Hernandez MD LAB MICROBIOLOGY - GENERAL ORDER LENA Final Result Performing Organization Address City/[facility]/ZIP Co de Phone Number [facility] [address] [place] [address] [phone] * Hepatitis B Core Antibody, Total (01/12/2025 2:49 PM EST) Hepatitis B Core Antibody Nonreactive Nonreactive [facility] Blood Venous blood specimen / Unknown 01/12/2025 2:49 PM EST 01/12/2025 4:06 PM EST Xiomara Hernandez MD LAB BLOOD ORDERABLES Final Resul t Performing Organization Address City/[facility] Co de Phone Number [facility] [address] [place] [phone] * Hepatitis B Surface Antibody, Qualitative (01/12/2025 2:49 PM EST) ~Hepatitis B Surface Antibody REACTIVE Nonreactive [facility] Comment:REACTIVE: > 11.99 mI U/mL Blood Venous blood specimen / Unknown 01/12/2025 2:49 PM EST 01/12/2025 4:06 PM EST Xiomara Hernandez MD LAB BLOOD ORDERABLES Final Resul t Performing Organization Address [facility] Co de Phone Number [facility] [address] [place] [phone] * Hepatitis C Antibody with Reflex to HCV, RNA, Quantitative, Real-Time PCR (01/12/2025 2:49 PM EST) Hepatitis C Antibody Nonreactive Nonreactive [facility] Comment:Antibodies to HCV no t detected; does not exclude early acuteHCV infection. Blood Venous blood specimen / Unknown 01/12/2025 2:49 PM EST 01/12/2025 4:06 PM EST Xiomara Hernandez MD LAB BLOOD ORDERABLES Final Resul t Performing Organization Address [facility] Co de Phone Number [facility] [address] [place] [phone] * Syphilis Screen (01/12/2025 2:49 PM EST) Syphilis Screen Nonreactive Nonreactive [facility] Blood 01/12/2025 2:49 PM EST 01/12/2025 4:06 PM EST Xiomara Hernandez MD LAB BLOOD ORDERABLES Final Resul t Performing Organization Address [facility] Co de Phone Number [facility] [address] [place] [phone] * (ABNORMAL) Lipid Panel with Reflex to Direct LDL (01/12/2025 2:49 PM EST) Triglycerides 135 <150 mg/dL [facility] Comment:Desirable Triglyceri de: less than 150 mg/dLBorderline High Triglyceride 150-199 mg/dLHigh Triglyceride: 200-499 mg/dLVery High Triglyceride: greater than or equal to 5OO mg/dL Cholesterol 202(H) <200 mg/dL [facility] Comment:Desirable Cholestero l: less than 200 mg/dLBorderline High Cholesterol: 200-239 mg/dLHigh Cholesterol: greater than 239 mg/dL LDL Cholesterol Calculated 128(H) <100 mg/dL [facility] Comment:Desirable LDL: less than 100 mg/dLNear Optimal/Above Optimal LDL: 110- 129 mg/dLBorderline High LDL: 130-159 mg/dLHigh LDL: 160-189 mg/dLVery High LDL: greater than or equal to 190 mg/dL HDL Cholesterol 47 >40 mg/dL [facility] Comment:Desirable HDL: great er than 40 mg/dL Note: This HDL assay may give artificially low results in patients with liver disease. Blood 01/12/2025 2:49 PM EST 01/12/2025 4:06 PM EST us Xiomara Hernandez MD LAB BLOOD ORDERABLES Final Resul t [facility] [address] [place] [phone] * (ABNORMAL) Comprehensive Metabolic Panel (01/12/2025 2:49 PM EST) Sodium 138 135 - 145 mmol/L [facility] Potassium 4.1 3.3 - 5.1 mmol/L [facility] Chloride 104 96 - 108 mmol/L [facility] Carbon Dioxide 27 22 - 29 mmol/L [facility] Anion Gap 11(L) 12 - 20 [facility] Urea Nitrogen (BUN) 16 9 - 16 mg/dL [facility] Creatinine, Serum 0.85 0.5 - 1.4 mg/dL [facility] Estimated Glomerular Filt Rate >60 [facility] Comment:Chronic Kidney Disea se: Estimated GFR < 60 mL/min/1.85b2Pnugnl Kidney Disease: Estimated GFR < 15 mL/min/1.73m2 Glucose 89 60 - 115 mg/dL [facility] Calcium 10.0 8.4 - 10.2 mg/dL [facility] Bilirubin, Total 0.4 0.0 - 1.0 mg/dL [facility] Aspartate Amino Transferase 33(H) 5 - 31 U/L [facility] Alanine Aminotransferase 39(H) 0 - 31 U/L [facility] Total Protein 8.6(H) 6.5 - 8.0 g/dL [facility] Albumin Level 4.5 3.5 - 5.0 g/dL [facility] Alkaline Phosphatase 48 39 - 117 U/L [facility] Blood Venous blood specimen / Unknown 01/12/2025 2:49 PM EST 01/12/2025 4:06 PM EST Xiomara Hernandez MD LAB BLOOD ORDERABLES Final Resul t Performing Organization Address [facility] de Phone Number [facility] [address] [place] [address] [phone] * Hemoglobin A1c (01/12/2025 2:49 PM EST) Hemoglobin A1c 5.7 <6.0 % [facility] Comment:Hemoglobin A1C Refer ence Range Adults: 4.8 - 6.0 % Non diabetic: < 6.0 % Goal: < 7.0 %Additional Action Suggested: > 8.0 %Note: Hemoglobin A1c results are invalid for patients with abnormal amounts of HbF. Blood transfusions may impact the HbA1c concentration in the patient sample. Estimated Average Glucose 117 mg/dL [facility] Comment:eAG = Estimated ave rage glucose which is %A1C expressed asaverage glucose, using the formula of the [id number]-IqafdmwUjtflwy Glucose study (ADAG), Diabetes Care, Vol.31,#8,2007 Blood Venous blood specimen / Unknown 01/12/2025 2:49 PM EST 01/12/2025 4:06 PM EST Xiomara Hernandez MD LAB BLOOD ORDERABLES Final Resul t Performing Organization Address [facility] Co de Phone Number [facility] [address] [place] [phone] * TSH with Reflex to Free T4 (01/12/2025 2:49 PM EST) TSH reflex Free T4 0.98 0.32 - 4.0 uIU/mL [facility] Blood 01/12/2025 2:49 PM EST 01/12/2025 4:06 PM EST us Xiomara Hernandez MD LAB BLOOD ORDERABLES Final Resul t [facility] [address] [place] [phone] documented in this encounter Visit Diagnoses Diagnosis Routine general medical examination at a health care facility- Primary Mild intermittent asthma without complication Constipation, unspecified constipation type Migraine without status migrainosus, not intractable, unspecified migraine type Fatigue, unspecified type Vitamin D deficiency Routine screening for STI (sexually transmitted infection) Screening examination for venereal disease Dietary counseling Dietary surveillance and counseling Exercise counseling Class 2 obesity due to excess calories without serious comorbidity with body mass index (BMI) of 35.0 to 35.9 in adult Heartburn Skin lesion Unspecified disorder of skin and subcutaneous tissue Cervical dysplasia Dysplasia of cervix, unspecified documented in this encounter Additional Health Concerns Assessment Noted Time PHQ-9 Depression Total Score: 8 01/13/20 25 2:57 PM EST documented as of this encounter Care Teams Mold Closer Helper Relationship Specialty Start Date End Date Xiomara Hernandez MD [address] [place] [phone] PCP - General Family Medicine 05/02/22 documented as of this encounter
--- OUTSIDE RECORDS SUMMARY | 2025-01-20 09:14 | XMS_ITS | Encounter Summary ---
Author Organization [employer] Address [address] [facility] [address] [place] [address] Care Team Providers Care Utility Gelatin Maker Name Role Phone Xiomara Hernandez MD Primary Care Provider [phone] Reason for Referral * Consultation (Routine) - Authorized Specialty Diagnoses / Procedures Referred By Kamran barajas Referred To Contact Obstetrics and Gynecology Diagnoses ASCUS with positive high risk HPV cervical Shannan Choudhury CNM [address] [place] [address] Phone: tel: fax: [facility] OBGYN [address] [facility] 4th Floor [address] [place], [place] Phone: tel: fax: Referral ID Status Reason Start Date Expiration Date Visits Requested Visits Authorized [id number] Authorized Specialty Services Required 12/22/2024 12/22/2025 1 1 Encounter Details Date Type Department Care Team (Late st Contact Info) Description 12/22/2024 Orders Only [facility] MEDICINE [address] [place], [place] [phone] Shannan Choudhury CNM [address] [place], [place] [phone] ASCUS with positive high risk HPV cervical [...] Description 02/08/2025 2:30 PM EDT Clinical Support [facility] DIABETES/NUTRITION [address] [place] [address] Cate Reeder, RD [address] [place] [address] 03/25/2025 3:00 PM EDT Office Visit [facility] OPTOMETRY [address] [place] [address] Krish, Mica, OD [address] [place] [address] Scheduled Referrals Name Type Priority Associated Diagnoses [...] documented as of this encounter Care Teams Utility Gelatin Maker Relationship Specialty Start Date End Date Xiomara Hernandez MD [address] [phone] PCP - General Family Medicine 05/02/22 documented as of this encounter
--- OUTSIDE RECORDS SUMMARY | 2025-01-20 09:14 | XMS_ITS | Encounter Summary ---
Author Organization [employer] Address [address] [place] [address] [address] [address] Care Team Providers Care Mucking Machine Operator Name Role Phone Xiomara Hernandez MD Primary Care Provider [phone] Reason for Visit * Reason Comments Pre-visit Planning SDOH Screening posit frances and Tobacco screening negative Encounter Details Date Type Department Care Team ([facility] Contact Info) Description 01/05/2025 Patient Outreach [facility] MEDICINE [address] [place] [address] Xiomara Hernandez MD [address] [place] [address] Pre-visit Planning (SDOH Screening positive and Tobacco [...] of this encounter Progress Notes * Leigh Tavreas - 01/05/2025 10:05 AM EST ABIODUN Damon [...] Description 02/08/2025 2:30 PM EDT Clinical Support [facility] DIABETES/NUTRITION [address] [place], [place] [phone] Cate Reeder, EZ [address] [place] [address] 03/25/2025 3:00 PM EDT Office Visit [facility] OPTOMETRY [address] [place] [address] Mica Rutherford, OD [address] [place] [phone] documented as of this encounter Visit Diagnoses Not on filedocumented in this encounter Additional Health Concerns Assessment Noted Time PHQ-9 Depression Total Score: 0 12/03/19 24 2:34 PM EST documented as of this encounter Care Teams Mucking Machine Operator Relationship Specialty Start Date End Date Xiomara Hernandez MD [address] [facility] [place] [address] PCP - General Family Medicine 05/02/22 documented as of this encounter
--- OUTSIDE RECORDS SUMMARY | 2025-01-20 09:14 | XMS_ITS | Encounter Summary ---
Author Organization [employer] Address [address] [place] [address] [address] [address] Care Team Providers Care Plastic Printer Name Role Phone Xiomara Hernandez MD Primary Care Provider [phone] Reason for Visit * Reason Onset Date Comments Referral 11/03/2024 Encounter Details Date Type Department Care Team ([facility] st Contact Info) Description 11/03/[address] [facility] MEDICINE [address] [place], [place] [phone] Xiomara Hernandez MD [address] [place] [address] Referral Social History Tobacco Use Types Packs/Day [...] like a referral placed to Ambar Ly, Acid Conditioner at [facility]. The pt would like this done due to her being diagnosed pre diabetic and would like to have dietary change to help bring down her glucose trends. Pt informed that this information willbe sent to PCP for review. * Telephone Encounter - Keith Davies - 11/03/2024 12:10 PM EST Tc from requesting a referral for a Neuronist at [facility] Dr Nuris Ly. IF any questions contact pt at [phone] documented in this encounter Plan of Treatment Upcoming Encounters Date Type Department Care Team (Late st Contact Info) Description 02/08/2025 2:30 PM EDT Clinical Support [facility] DIABETES/NUTRITION [address] [place] [address] Cate Reeder, EZ [address] [place] [address] 03/25/2025 3:00 PM EDT Office Visit [facility] OPTOMETRY [address] [place] [address] KrishMica lowe, OD [address] [place] [address] documented as of this encounter Visit Diagnoses Not on filedocumented in this encounter Additional Health Concerns Assessment Noted Time PHQ-9 Depression Total Score: 0 12/03/19 2:34 PM EST documented as of this encounter Care Teams Plastic Printer Relationship Specialty Start Date End Date Xiomara Hernandez MD [address] [place] [address] PCP - General Family Medicine 05/02/22 documented as of this encounter
== END 2025-01-20 08:41 | disposition home or self-care (01) ==
LOC: HO.10HDLNP 08:40
PROVIDERS: Visit Provider Family Medicine
DX: K59.00 Constipation, unspecified (principal); R74.01 Elevation of levels of liver transaminase levels
CPT/HCPCS: 87338

== ENCOUNTER 2025-03-03 08:17 | Outpatient (AMB) | payer OTHER, SELFPAY ==
--- NOTE | 2025-03-03 08:21 | A.OFFVIS_ITS ---
Vital Signs 03/03/25 08:25 Height 5 ft 6 in Weight 217 lb BMI 35.0 BP 110/80 Intake Visit Reasons: cervical dysplasia Wig Comber Required: No Information Interpreted: non-clinical & clinical Accompanied by: Self / Same As Patient Allergies shellfish derived Allergy (Severe, Verified 03/03/25 08:27) Anaphylaxis Is last menstrual period known: No (hysterectomy) HPI Comments Details: Presenting referred from [facility] regarding abnormal vaginal smear showing ascus/HPV positive, HPV 16/18 negative [facility] Medical History (Updated 03/03/25 @ 08:41 by Momo José MD) AARON 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 Surgical History (Updated 03/03/25 @ 08:41 by Momo José MD) Hx of eye surgery History of partial hysterectomy Family History Mother HTN (hypertension) Father Diabetes Cirrhosis Sister Stroke Social History (Updated 03/03/25 @ 08:33 by Iraida Scanlon CMA) Household Members: Spouse and Children Housing: House Alcohol intake: former Patient Tobacco Use Status: Former Tobacco user Years Smoked: 5 Current occupational status: employed 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 [place] [employer] Sexually active: Yes Sexual orientation: Straight/Heterosexual Gender identity: Female Female Reproductive History Menstrual Menopause type: surgical Total pregnancies: 5 Full term: 2 Number of Living Children: 2 Review of Systems Const All systems reviewed & are unremarkable except as noted in HPI and below Reports as per HPI and Reports no additional complaints GI Reports no additional complaints Reports no additional complaints Physical Exam Vital Signs: Last Vital Signs BP 110/80 03/03/25 08:25 BMI result Body Mass Index 35.0 Office Procedures Colposcopy Vaginoscopy: Pre-Procedure Counseling: Before beginning the procedure, I conducted comprehensive counseling with the patient. We thoroughly discussed the procedure itself, including its details, alternatives, and all associated risks. This included but not limited to the following complications such as bleeding, infection, and injury to the vagina, bladder, and vessels, as well as the potential need for transfusion with all its associated risks. Subsequently, the patient sign the consent. Vaginal smear result: Ascus/HPV positive, HPV 16/18 negative Procedure: During the procedure, the following steps were performed: A speculum was inserted, and acetic acid was applied. Vaginoscopy was conducted, allowing visualization of the transformation zone. Acetowhite lesions were identified at the 8+10 o'clock position at the vaginal cuff. Vaginal cuff biopsies were obtained from the 8+ 10 o'clock position. Hemostasis was achieved using Monsel solution, and the patient tolerated the procedure well. Post-Procedure Instructions: The patient was advised to promptly contact the office or the after hours answering service or go to the emergency room if experiencing a temperature exceeding 100.4?F, abdominal pain, nausea/vomiting, or bleeding. Additionally, the patient was instructed to abstain from vaginal intercourse and bathtub use. The patient confirmed understanding of these instructions. Discharge Instructions: The patient was instructed to schedule a follow-up appointment in 2 weeks for further evaluation and management. Please note that this note was generated using a voice recognition program, and errors may have occurred during derrick man. [id number] of entire vagina with biopsy Procedure code (CPT) selection complete Assessment & Plan Assessment & Plan (1) ASCUS with positive high risk HPV cervical: Code(s): R87.610 - Atypical squamous cells of undetermined significance on cytologic smear of cervix (ASC-US); R87.810 - Cervical high risk human papillomavirus (HPV) DNA test positive Category: Medical Plan: Discussed with the patient the result of her abnormal vaginal smear, its significance, risk of progression, persistence, and regression. the false positive/negative rate of a Pap smear as a screening test in detecting vaginal l cancer and the indication for a diagnostic test -vaginoscopy, biopsy. The patient verbalized understanding and agreed with the plan, all questions answered. Vaginoscopy/biopsy done, see procedure note Orders: Orders AMB Colposcopy Today R87.610 - Atypical squamous cells of undetermined significance on cytologic smear of cervix (ASC-US), R87.810 - Cervical high risk human papillomavirus (HPV) DNA test positive Coding Level of Care Code Procedure Only Diagnoses ASCUS with positive high risk HPV cervical R87.610; R87.810 CPT Codes Colposcopy - CPT: 74254-[id number] of entire vagina with biopsy ([id number])
[2025-03-03 08:25] VITALS: BP 110/80; BMI 35.0
--- OUTSIDE RECORDS SUMMARY | 2025-03-03 08:32 | XMS_ITS | Clinical Summary ---
Author Organization [employer] Address [address] [place] [address] 7 [place] [address] Care Team Providers Care Legislative Aide Name Role Phone Xiomara Hernandez MD Primary Care Provider [phone] Allergies No known active allergies Medications polyvinyl [...] FOR CONSTIPATION 180 tablet 08/06/20 23 Active hydrocortisone 2.5 % cream Apply to affected area once or twice daily 28 g 3 12/03/19 24 Active Magnesium 400 MG capsule Take 1 capsule by mouth twice a day 60 capsule 11 12/03/19 24 Active clotrimazole (Lotrimin) 1 % cream Apply topically 2 times daily. 30 g 5 01/14/20 25 Active Bismuth Subsalicylate 262 MG tablet Take 2 tablets by mouth 4 times daily 112 tablet 01/22/20 25 Active omeprazole (PriLOSEC) [address] capsule Take 1 capsule (20 mg) by mouth 2 times daily for 14 days. 28 capsule 01/22/20 25 Active metroNIDAZOLE (Flagyl) 250 MG tablet Take 1 tablet (250 mg) by mouth 4 times daily for 14 days. 56 tablet 01/22/20 25 025 tetracycline 500 MG capsule Take 1 capsule (500 mg) by mouth 4 times daily for 14 days. 56 capsule 01/22/20 25 025 Active Problems Problem Noted Date Diagnosed Date Prediabetes 02/04/2025 Helicobacter pylori gastrointestinal tract infec tion 01/21/2025 Assessment & Plan (01/21/2025 5:24 PM EDT): - Dx January 2025 - will start quadruple therapy - recheck hepatic panel and stool antigen after eradication treatment Skin lesion 01/19/2025 Assessment & Plan (01/19/2025 11:38 AM EDT): - feet - some lesions appear plantar wart - some rash had improved with azol and steroid cream Cervical dysplasia 01/19/2025 Assessment & Plan (01/19/2025 11:40 AM EDT): - s/p hysterectomy - Oct 2024 ASCUS and positive high-risk HPV, 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 - upcoming appointment with HEAD OF SALES in February 2025 Heartburn 12/13/2023 Assessment & [...] Plan (01/12/2025 1:13 PM EST): Previously seeing [facility] neurology, referred back in Jun 2022. Pt will call to schedule appt. Continue (resume) Magnesium oxide. Assessment & Plan (12/13/2023 6:34 AM EST): Previously seeing [facility] neurology, referred back in Jun 2022. Pt will call to schedule appt. Continue (resume) Magnesium oxide. Assessment & Plan (10/25/2022 12:17 PM EST): ?? Previously seeing [facility] neurology, referred back in Jun 2022. [...] Encounters Date Type Department Care Team Description 02/26/2025 Telephone [facility] [address] [place] [address] Nerissa Nelson MA maxwell recall 02/04/2025 Orders Only [facility] [address] [place] [address] Xiomara Hernandez MD Class 2 obesity due to excess calories without serious comorbidity with body mass index (BMI) of 35.0 to 35.9 in adult (Primary Dx); Vitamin D deficiency; Prediabetes; Vision problem 02/04/2025 Orders Only [facility] [address] [place] [address] Kobe Mauricio CNM History of cervical dysplasia (Primary Dx) 01/21/2025 Orders Only [address] [address] Xiomara Hernandez MD 01/21/2025 Orders Only [address] [address] Xiomara Hernandez MD Helicobacter pylori gastrointestinal tract infection (Primary Dx) 01/14/[address] [address] Xiomara Hernandez MD Results 01/13/2025 Orders Only [address] [address] Xiomara Hernandez MD Constipation, unspecified constipation type (Primary Dx); Transaminitis 01/12/2025 1:45 PM EST Office Visit [address] [address] Xiomara Hernandez MD Routine general medical examination [...] Skin lesion; Cervical dysplasia 01/12/2025 Travel 01/11/2025 2:00 PM EST Clinical Support [facility] DIABETES/NUTRITION [address] [place] [address] Pre-diabetes (Primary Dx) 01/11/2025 Travel 01/06/[address] [address] Nerissa Nelson MA chart prep 01/05/2025 Patient Outreach [address] [phone] Xiomara Hernandez MD Care Coordination (CHW outreach for SDOH food needs - LVM ) 01/05/2025 Patient Outreach [address] [phone] Xiomara Hernandez MD Pre-visit Planning (SDOH Screening positive and Tobacco screening negative) 12/22/2024 Orders Only [facility] [address] [facility] [place] [address] Kobe Mauricio CNM ASCUS with positive high risk HPV cervical (Primary Dx) 12/15/2024 2:30 PM EST Nutrition [facility] DIABETES/NUTRITION [address] [facility] [place] [address] Prediabetes (Primary Dx) 12/08/2024 Travel from Last 3 Months Immunizations Name Administration [...] EST Inhaled Oxygen Concentration - - Weight 99.9 kg (220 lb 3.2 oz) 01/28/2025 11:50 AM EDT Height 165.3 cm (5' 5.09 ) 01/28/2025 11:50 AM E DT Body Mass Index 36.54 01/28/2025 11:50 AM EDT Plan of Treatment Upcoming Encounters Date Type Department Care Team (Late st Contact Info) Description 03/25/2025 3:00 PM EDT Office Visit [facility] OPTOMETRY [address] [place] [address] Mica Rutherford, OD [address] [place] [address] Health Maintenance Due Date Last Done Comments [...] Procedure Name Priority Date/Time Associated Diagnosis Comments HELICOBACTER PYLORI AG, EIA, STOOL Routine 01/19/2025 7:00 PM EDT Constipation, unspecified constipation type Transaminitis CBC WITH AUTO DIFFERENTIAL Routine 01/12/2025 2:49 [...] Recently Relevant to Health Maintenance Results * (ABNORMAL) Helicobacter pylori??Antigen, EIA, Stool (01/19/2025 7:00 PM EDT) H pylori Ag Stool SEE NOTE(A) [facility] Comment:HELICOBACTER PYLORI AG, EIA, STOOL Micro Number: [id number] Test Status: Final Specimen Source: Stool Specimen Quality: Adequate H.pylori Ag: Detected Reference Range: Not DetectedTHIS TEST WAS PERFORMED AT:[id number] [place] [id number] JAIMES MD Stool Rectal contents / Unknown 01/19/2025 7:00 PM EDT 01/20/2025 10:23 AM EDT Xiomara Hernandez MD LAB BODY FLUIDS AND STOOLS ORDER LENA Final Result Performing Organization Address [facility] Co de Phone Number [facility] [address] [place] [phone] * Syphilis Screen (01/12/2025 2:49 PM EST) Syphilis Screen Nonreactive Nonreactive [facility] Blood 01/12/2025 2:49 PM EST 01/12/2025 4:06 PM EST Xiomara Hernandez MD LAB BLOOD ORDERABLES Final Resul t Performing Organization Address [facility] Co de Phone Number [facility] [address] [place] [phone] * (ABNORMAL) Vitamin D, 25-Hydroxy, Total, Immunoassay (01/12/2025 2:49 PM EST) Vitamin D 25-OH Total 22.6(L) >30 ng/mL [facility] Comment:Health Based Referen ce Values*< 20 ng/mL Kujsbnmks35-27 ng/mL Insufficient> 30 ng/mL Sufficient*Iggy FAIRCHILD. N [...] ORDERABLES Final Resul t Performing Organization Address City/[facility]/ZIP Co de Phone Number [facility] [address] [place] [phone] * TSH with Reflex to Free T4 (01/12/2025 2:49 PM EST) TSH reflex Free T4 0.98 0.32 - 4.0 uIU/mL [facility] Blood 01/12/2025 2:49 PM EST 01/12/2025 4:06 PM EST Xiomara Hernandez MD LAB BLOOD ORDERABLES Final Resul t Performing Organization Address City/[facility]/ZIP Co de Phone Number [facility] [address] [place] [phone] * (ABNORMAL) Lipid Panel with Reflex to Direct LDL (01/12/2025 2:49 PM EST) Triglycerides 135 <150 mg/dL [facility] Comment:Desirable Triglyceri de: less than 150 mg/dLBorderline High Triglyceride 150-199 mg/dLHigh Triglyceride: 200-499 mg/dLVery High Triglyceride: greater than or equal to 5OO mg/dL Cholesterol 202(H) <200 mg/dL [facility] Comment:Desirable Cholestero l: less than 200 mg/dLBorderline High Cholesterol: 200-239 mg/dLHigh Cholesterol: greater than 239 mg/dL LDL Cholesterol Calculated 128(H) <100 mg/dL [facility] Comment:Desirable LDL: less than 100 mg/dLNear Optimal/Above Optimal LDL: 110- 129 mg/dLBorderline High LDL: 130-159 mg/dLHigh LDL: 160-189 mg/dLVery High LDL: greater than or equal to 190 mg/dL HDL Cholesterol 47 >40 mg/dL [facility] Comment:Desirable HDL: great er than 40 mg/dL Note: This HDL assay may give artificially low results in patients with liver disease. Blood 01/12/2025 2:49 PM EST 01/12/2025 4:06 PM EST us Xiomara Hernandez MD LAB BLOOD ORDERABLES Final Resul t [facility] [address] [place] [address] [phone] * CBC auto differential (01/12/2025 2:49 PM EST) White Blood Count 6.0 4.8 - 10.8 X10*3/uL [facility] Red Blood Count 4.59 4.20 - 5.50 X10*6/uL [facility] Hemoglobin 13.0 12.0 - 16.0 g/dl [facility] Hematocrit 39.9 37.0 - 47.0 % [facility] Mean Corpuscular Volume 86.9 80.0 - 98.0 fL [facility] Mean Corpuscular Hemoglobin 28.3 27.0 - 33.0 pg [facility] Mean Corpuscular HGB Conc 32.6 31.0 - 35.0 g/dl [facility] Red Cell Distribution Width 13.0 11.0 - 16.0 % [facility] Platelet Count 316 160 - 400 X10*3/uL [facility] Mean Platelet Volume 10.2 9.4 - 12.3 fL [facility] Neutrophils Percent Auto 54.4 45 - 73 % [facility] Imm Gran Pct Auto 0.2 0.0 - 0.4 % [facility] Lymphocytes Percent Auto 37.0 20 - 40 % [facility] Monocytes Percent Auto 6.6 2 - 11 % [facility] Eosinophils Percent Auto 1.3 0 - 4 % [facility] Basophils Percent Auto 0.5 0 - 2 % [facility] NRBC Pct Auto 0.0 0.0 - 0.2 /100WBC [facility] Neutrophils Absolute Auto 3.2 2.0 - 8.3 x10*3/uL [facility] Imm Gran Abs Auto 0.01 0.00 - 0.03 X10*3/uL [facility] Lymphocytes Absolute Auto 2.2 1.2 - 4.9 X10*3/uL [facility] Monocytes Absolute Auto 0.4 0.1 - 1.2 X10*3/uL [facility] Eosinophils Absolute Auto 0.1 0.0 - 0.4 X10*3/uL [facility] Basophils Absolute Auto 0.0 0.0 - 0.2 X10*3/uL [facility] NRBC Abs Auto 0.000 0.0 - 0.012 X10*3/uL [facility] Blood Venous blood specimen / Unknown 01/12/2025 2:49 PM EST 01/12/2025 4:06 PM EST us Xiomara Hernandez MD LAB BLOOD ORDERABLES Final Resul t [facility] [address] [place] [phone] [phone] * Hepatitis C Antibody with Reflex to HCV, RNA, Quantitative, Real-Time PCR (01/12/2025 2:49 PM EST) [facility] Hepatitis C Antibody Nonreactive Nonreactive [facility] Comment:Antibodies to HCV no t detected; does not exclude early acuteHCV infection. Blood Venous blood specimen / Unknown 01/12/2025 2:49 PM EST 01/12/2025 4:06 PM EST Xiomara Hernandez MD LAB BLOOD ORDERABLES Final Resul t Performing Organization Address [facility]/ZIP Co de Phone Number [facility] [address] [place] [phone] * Hepatitis A Antibody, Total (01/12/2025 2:49 PM EST) [facility] Hepatitis A Antibody IgG Nonreactive Nonreactive [facility] Blood Venous blood specimen / Unknown 01/12/2025 2:49 PM EST 01/12/2025 4:06 PM EST Xiomara Hernandez MD LAB BLOOD ORDERABLES Final Resul t Performing Organization Address [facility] Co de Phone Number [facility] [address] [place] [phone] * Chlamydia/N. Gonorrhoeae RNA, TMA, Urogenitial (01/12/2025 2:49 PM EST) [facility] CT PCR NOT DETECTED Not Detect. [facility] Comment:A not detected test result does [...] psychologicalconsequences. NG PCR NOT DETECTED Not Detect. [facility] Comment:A not detected test result does [...] PM EST 01/12/2025 4:36 PM EST Narrative [facility] - 01/13/2025 12:28 PM EST Urine Xiomara Hernandez MD LAB MICROBIOLOGY - GENERAL ORDER LENA Final Result Performing Organization Address [facility] Co de Phone Number [facility] [address] [place] [phone] * Hepatitis B surface antigen, EIA (01/12/2025 2:49 PM EST) Hepatitis B Surface Ag Negative Negative [facility] Blood Venous blood specimen / Unknown 01/12/2025 2:49 PM EST 01/12/2025 4:06 PM EST Xiomara Hernandez MD LAB BLOOD ORDERABLES Final Resul t Performing Organization Address [facility] Co de Phone Number [facility] [address] [place] [phone] * Hepatitis B Core Antibody, Total (01/12/2025 2:49 PM EST) [facility] Hepatitis B Core Antibody Nonreactive Nonreactive [facility] Blood Venous blood specimen / Unknown 01/12/2025 2:49 PM EST 01/12/2025 4:06 PM EST us Xiomara Hernandez MD LAB BLOOD ORDERABLES Final Resul t Performing Organization Address City/[facility]/ZIP Co de Phone Number [facility] [address] [place] [phone] * HIV-1/2 Antigen and Antibodies, Fourth Generation, with Reflexes (01/12/2025 2:49 PM EST) [facility] HIV AB/AG Nonreactive Nonreactive [facility] Comment:HIV-1 p24 Ag and/or HIV-1/HIV-2 Ab not detected.A test result that is nonreactive does not exclude thepossibility of exposure to or infection with HIV-1 and/orHIV-2. Nonreactive results in this assay for individualswith prior exposure to HIV-1 and/or HIV-2 may be due toantigen and antibody levels that are below the limit ofdetection of this assay.The [employer] HIV Ag/Ab Combo assay result andsupplemental assay results should be interpreted inconjunction with the patient's clinical presentation,history and other laboratory results. If the results areinconsistent with clinical evidence, additional testing issuggested to confirm the result. Blood Venous blood specimen / Unknown 01/12/2025 2:49 PM EST 01/12/2025 4:06 PM EST us Xiomara Hernandez MD LAB BLOOD ORDERABLES Final Resul t Performing Organization Address City/[facility]/ZIP Co de Phone Number [facility] [address] [place] [phone] * Hepatitis B Surface Antibody, Qualitative (01/12/2025 2:49 PM EST) Pathologist [facility] ~Hepatitis B Surface Antibody REACTIVE Nonreactive [facility] Comment:REACTIVE: > 11.99 mI U/mL Blood Venous blood specimen / Unknown 01/12/2025 2:49 PM EST 01/12/2025 4:06 PM EST Xiomara Hernandez MD LAB BLOOD ORDERABLES Final Resul t Performing Organization Address [facility] Co de Phone Number [facility] [address] [place] [phone] * Hemoglobin A1c (01/12/2025 2:49 PM EST) Pathologist [facility] Hemoglobin A1c 5.7 <6.0 % [facility] Comment:Hemoglobin A1C Refer ence Range Adults: 4.8 - 6.0 % Non diabetic: < 6.0 % Goal: < 7.0 %Additional Action Suggested: > 8.0 %Note: Hemoglobin A1c results are invalid for patients with abnormal amounts of HbF. Blood transfusions may impact the HbA1c concentration in the patient sample. Estimated Average Glucose 117 mg/dL [facility] Comment:eAG = Estimated ave rage glucose which is %A1C expressed asaverage glucose, using the formula of the V8R-KqikxynQnlrnly Glucose study (ADAG), Diabetes Care, Vol.31,#8,Jun. 2007 Blood Venous blood specimen / Unknown 01/12/2025 2:49 PM EST 01/12/2025 4:06 PM EST us Xiomara Hernandez MD LAB BLOOD ORDERABLES Final Resul t Performing Organization Address [facility]/ZIP Co de Phone Number [facility] [address] [place] [phone] * (ABNORMAL) Comprehensive Metabolic Panel (01/12/2025 2:49 PM EST) Pathologist [facility] Sodium 138 135 - 145 mmol/L [facility] Potassium 4.1 3.3 - 5.1 mmol/L [facility] Chloride 104 96 - 108 mmol/L [facility] Carbon Dioxide 27 22 - 29 mmol/L [facility] Anion Gap 11(L) 12 - 20 [facility] Urea Nitrogen (BUN) 16 9 - 16 mg/dL [facility] Creatinine, Serum 0.85 0.5 - 1.4 mg/dL [facility] Estimated Glomerular Filt Rate >60 [facility] Comment:Chronic Kidney Disea se: Estimated GFR < 60 mL/min/1.23v3Xfbdxd Kidney Disease: Estimated GFR < 15 mL/min/1.73m2 Glucose 89 60 - 115 mg/dL [facility] Calcium 10.0 8.4 - 10.2 mg/dL [facility] Bilirubin, Total 0.4 0.0 - 1.0 mg/dL [facility] Aspartate Amino Transferase 33(H) 5 - 31 U/L [facility] Alanine Aminotransferase 39(H) 0 - 31 U/L [facility] Total Protein 8.6(H) 6.5 - 8.0 g/dL [facility] Albumin Level 4.5 3.5 - 5.0 g/dL [facility] Alkaline Phosphatase 48 39 - 117 U/L [facility] Blood Venous blood specimen / Unknown 01/12/2025 2:49 PM EST 01/12/2025 4:06 PM EST us Xiomara Hernandez MD LAB BLOOD ORDERABLES Final Resul t [facility] [address] [place] [phone] * Pap Smear (10/15/2024 11:42 AM EST) Swab Vaginal structure / Unknown 10/15/2024 11:42 AM EST 10/16/2024 10:00 AM EST Narrative [facility] - 10/21/2024 4:12 PM EST ----- ------- Name: Julio CElvia ?Age/Sex: 34/F ? : 1990 Unit#: [id number] ?? Attend Dr: KOBE MAURICIO CNM ?Re10/15/24 ?Status: DEP REF ? [facility] ? Disch: ? ----- ------- SPEC : [id number] ?RECD: 10/16/24-999 ? STATUS: ??SOUT ? REQ NUM: [id number] ? DOM: 10/15/24-114 ? SUBM DR: KOBE MAURICIO CNM ? [...] ----- ------- Signed (signature on file) Siria Aleman 10/21/242 ? ----- ------- ? END OF REPORT ? us Kobe Mauricio [facility] CYTOLOG[facility] ORDERABLES F inal Result [facility] [address] [place] [phone] from Last 3 Months or Most Recently Relevant to Health Maintenance Insurance [employer] Care Teams Legislative Aide Relationship Specialty Start Date End Date Xiomara Hernandez MD [address] [place] [phone] PCP - General Family Medicine 05/02/22
--- OUTSIDE RECORDS SUMMARY | 2025-03-03 08:32 | XMS_ITS | Encounter Summary ---
Author Organization [employer] Address [address] [place] [address] [address] [address] Care Team Providers Care Director Of Healthcare Systems Name Role Phone Xiomara Hernandez MD Primary Care Provider [phone] Reason for Visit * Reason Onset Date Comments Referral 11/03/2024 Encounter Details Date Type Department Care Team ([facility] st Contact Info) Description 11/03/2024 Telephone [facility] [address] [place], [place] [phone] Xiomara Hernandez MD [address] [place] [address] Referral Social History Tobacco Use Types Packs/Day [...] like a referral placed to Ambar Ly, Jewel Bearing Polisher at [facility]. The pt would like this done due to her being diagnosed pre diabetic and would like to have dietary change to help bring down her glucose trends. Pt informed that this information willbe sent to PCP for review. * Telephone Encounter - Keith Davies - 11/03/2024 12:10 PM EST Tc from requesting a referral for a Neuronist at [facility] Nuris Ly. IF any questions contact pt at [phone] documented in this encounter Plan of Treatment Upcoming Encounters Date Type Department Care Team (Late st Contact Info) Description 03/25/2025 3:00 PM EDT Office Visit [facility] OPTOM[facility] [address] [place] [address] Mica Rutherford, OD [address] [place] [address] documented as of this encounter Visit Diagnoses Not on filedocumented in this encounter Additional Health Concerns Assessment Noted Time PHQ-9 Depression Total Score: 0 12/03/19 24 2:34 PM EST documented as of this encounter Care Teams Director Of Healthcare Systems Relationship Specialty Start Date End Date Xiomara Hernandez MD [address] [place] [address] PCP - General Family Medicine 05/02/22 documented as of this encounter
--- OUTSIDE RECORDS SUMMARY | 2025-03-03 08:32 | XMS_ITS | Encounter Summary ---
Author Organization [employer] Address [address] [facility] [address] [place] [address] Care Team Providers Care Emergency Services Professional Name Role Phone Xiomara Hernandez MD Primary Care Provider [phone] Reason for Referral * Consultation (Routine) - Pending Review Specialty Diagnoses / Procedures Referred By Kamran barajas Referred To Contact Ophthalmology Diagnoses Vision problem Xiomara Hernandez MD [address] [place] [address] Phone: tel: fax: [facility] Referral ID Status Reason Start Date Expiration Date Visits Requested Visits Authorized [id number] Pending Review Specialty Services Required 02/04/2025 02/04/2026 1 1 * Consultation (Routine) - Closed Specialty Diagnoses / Procedures Referred By Kamran barajas Referred To Contact Nutrition Diagnoses Class 2 obesity due to excess calories without serious comorbidity with body mass index (BMI) of 35.0 to 35.9 in adult Vitamin D deficiency Prediabetes Xiomara Hernandez MD [address] [place] [address] Phone: tel: fax: Ambar Ly [address] [place] [address] [address] [place] [address] Phone: tel: Referral ID Status Reason Start Date Expiration Date V isits Requested Visits Authorized [id number] Closed Specialty Services Required 02/04/2025 02/04/2026 1 1 Encounter Details Date Type Department Care Team (Late st Contact Info) Description 02/04/2025 Orders Only [facility] MEDICINE 230 [place] [address] Xiomara Hernandez MD [address] [place] [address] Class 2 obesity due to excess calories without serious comorbidity with body mass index (BMI) of 35.0 to 35.9 in adult (Primary Dx); Vitamin D deficiency; Prediabetes; Vision problem Social History Tobacco Use Types Packs/Day Years [...] Description 03/25/2025 3:00 PM EDT Office Visit [facility] OPTOMETRY [address] [place] [address] Krish, Mica, OD 230 [place] [address] Scheduled Referrals Name Type Priority Associated Diagnoses Order Schedule Referral to Nutrition Therapy Outpatient Referral Routine Class 2 obesity due to excess calories without serious comorbidity with body mass index (BMI) of 35.0 to 35.9 in adult Vitamin D deficiency Prediabetes Expected: 02/04/2025 (Approximate), Expires: 02/04/2026 Referral to Ophthalmology Outpatient Referral Routine Vision problem Expected: 02/04/2025 (Approximate), Expires: 02/04/2026 documented as of this encounter Visit Diagnoses Diagnosis Class 2 obesity due to excess calories without serious comorbidity with body mass index (BMI) of 35.0 to 35.9 in adult- Primary Vitamin D deficiency Prediabetes Other abnormal glucose Vision problem Problems with sight documented in this encounter Additional Health Concerns Assessment Noted Time PHQ-9 Depression Total Score: 8 01/13/20 25 2:57 PM EST documented as of this encounter Care Teams Emergency Services Professional Relationship Specialty Start Date End Date Xiomara Hernandez MD [address] [place] [address] PCP - General Family Medicine 05/02/22 documented as of this encounter
--- OUTSIDE RECORDS SUMMARY | 2025-03-03 08:32 | XMS_ITS | Encounter Summary ---
Author Organization [employer] Address 75 [facility] 7 [place] [address] Care Team Providers Care Tank Carpenter Name Role Phone Xiomara Hernandez MD Primary Care Provider [phone] Encounter Details Date Type Department Care Team (Late st Contact Info) Description 01/21/2025 Orders Only [facility] MEDICINE 230 [place], [place] [phone] Xiomara Hernandez MD 230 [place], [place] [phone] Social History Tobacco Use Types Packs/Day Years [...] Description 03/25/2025 3:00 PM EDT Office Visit [facility] OPTOMETRY [address] [place] [address] Krish, Mica, OD 230 [place] [address] documented as of this encounter Visit Diagnoses Not on filedocumented in this encounter Additional Health Concerns Assessment Noted Time PHQ-9 Depression Total Score: 8 01/13/20 25 2:57 PM EST documented as of this encounter Care Teams Tank Carpenter Relationship Specialty Start Date End Date Xiomara Hernandez MD 230 [place] [address] PCP - General Family Medicine 05/02/22 documented as of this encounter
--- OUTSIDE RECORDS SUMMARY | 2025-03-03 08:32 | XMS_ITS | Encounter Summary ---
Author Organization [employer] Address 75 [facility] 7 [place] [address] Care Team Providers Care Fret Saw Operator Name Role Phone Xiomara Hernandez MD Primary Care Provider [phone] Encounter Details Date Type Department Care Team (Late st Contact Info) Description 01/13/2025 Orders Only [facility] MEDICINE 230 [place], [place] [phone] Xiomara Hernandez MD 230 [place], [place] [phone] Constipation, unspecified constipation type (Primary Dx); Transaminitis [...] Description 03/25/2025 3:00 PM EDT Office Visit [facility] OPTOMETRY [address] [place] [address] Krish, Mica, OD [address] [place] [address] documented as of this encounter Procedures Procedure Name Priority Date/Time Associated Diagnosis Comments HELICOBACTER PYLORI AG, EIA, STOOL Routine 01/19/2025 7:00 PM EDT Constipation, unspecified constipation type Transaminitis documented in this encounter Results * (ABNORMAL) Helicobacter pylori??Antigen, EIA, Stool (01/19/2025 7:00 PM EDT) H pylori Ag Stool SEE NOTE(A) [facility] Comment:HELICOBACTER PYLORI AG, EIA, STOOL Micro Number: [id number] Test Status: Final Specimen Source: Stool Specimen Quality: Adequate H.pylori Ag: Detected Reference Range: Not DetectedTHIS TEST WAS PERFORMED AT:[facility] [place] [id number] JAIMES MD Stool Rectal contents / Unknown 01/19/2025 7:00 PM EDT 01/20/2025 10:23 AM EDT us Xiomara Hernandez MD LAB BODY FLUIDS AND STOOLS ORDER LENA Final Result [facility] [address] [place] [address] [phone] documented in this encounter Visit Diagnoses Diagnosis Constipation, unspecified constipation type- Primary Transaminitis Nonspecific elevation of levels of transaminase or lactic acid dehydrogenase (LDH) documented in this encounter Additional Health Concerns Assessment Noted Time PHQ-9 Depression Total Score: 8 01/13/20 25 2:57 PM EST documented as of this encounter Care Teams Fret Saw Operator Relationship Specialty Start Date End Date Xiomara Hernandez MD [address] [place] [address] PCP - General Family Medicine 05/02/22 documented as of this encounter
--- OUTSIDE RECORDS SUMMARY | 2025-03-03 08:32 | XMS_ITS | Encounter Summary ---
Author Organization [employer] Address [address] [place] [address] Care Team Providers Care Manager Meat Name Role Phone Xiomara Hernandez MD Primary Care Provider [phone] Reason for Visit * Reason Onset Date Comments Med Refill 10/13/2023 Encounter Details Date Type Department Care Team (Late st Contact Info) Description 10/13/2023 Refill [facility] MEDICINE [address] [place] [address] Xiomara Hernandez MD [address] [place] [address] Social History Tobacco Use Types Packs/Day Years [...] Description 03/25/2025 3:00 PM EDT Office Visit [facility] OPTOMETRY [address] [place] [address] Mica Rutherford, OD [address] [place] [address] documented as of this encounter Visit Diagnoses Not on filedocumented in this encounter Care Teams Manager Meat Relationship Specialty Start Date End Date Xiomara Hernandez MD [address] [place] [address] PCP - General Family Medicine 05/02/22 documented as of this encounter
--- OUTSIDE RECORDS SUMMARY | 2025-03-03 08:32 | XMS_ITS | Encounter Summary ---
Author Organization [employer] Address [address] [place] [address] [address], [place] [address] Care Team Providers Care Emergency Room Orderly Name Role Phone Xiomara Hernandez MD Primary Care Provider [phone] Reason for Referral * Consultation (Routine) - Pending Review Specialty Diagnoses / Procedures Referred By Kamran barajas Referred To Contact Nutrition Diagnoses Prediabetes Xiomara Hernandez MD [address] [place] [address] Phone: tel: fax: Referral ID Status Reason Start Date Expiration Date Visits Requested Visits Authorized [id number] Pending Review Specialty Services Required 4 11/03/2025 1 1 Encounter Details Date Type Department Care Team (Late st Contact Info) Description 11/03/2024 Orders Only [facility] MEDICINE [address] [place], [place] [phone] Xiomara Hernandez MD [address] [place], [place] [phone] Prediabetes (Primary Dx) Social History Tobacco Use [...] Description 03/25/2025 3:00 PM EDT Office Visit [facility] OPTOMETRY [address] [place] [address] Krish, Mica, OD 230 [place] [address] Scheduled Referrals Name Type Priority Associated Diagnoses [...] as of this encounter Care Teams Emergency Room Orderly Relationship Specialty Start Date End Date Xiomara Hernandez MD [address] [place] [address] PCP - General Family Medicine 05/02/22 documented as of this encounter
--- OUTSIDE RECORDS SUMMARY | 2025-03-03 08:32 | XMS_ITS | Encounter Summary ---
Author Organization [employer] Address [address] [place] [address] Care Team Providers Care Metal Plater Name Role Phone Xiomara Hernandez MD Primary Care Provider [phone] Encounter Details Date Type Department Care Team (Late st Contact Info) Description 06/07/2023 Abstract [facility] MEDICINE [address] [place] [address] Xiomara Hernandez MD [address] [place] [address] Social History Tobacco Use Types Packs/Day Years [...] Description 03/25/2025 3:00 PM EDT Office Visit [facility] OPTOMETRY [address] [place] [address] Mica Rutherford, OD 230 [place] [address] documented as of this encounter Visit Diagnoses Not on filedocumented in this encounter Care Teams Metal Plater Relationship Specialty Start Date End Date Xiomara Hernandez MD [address] [place] [address] PCP - General Family Medicine 05/02/22 documented as of this encounter
--- OUTSIDE RECORDS SUMMARY | 2025-03-03 08:32 | XMS_ITS | Encounter Summary ---
Author Organization [employer] Address 75 [facility] 7 [place] [address] Care Team Providers Care Area Director Of Home Health Sales Name Role Phone Xiomara Hernandez MD Primary Care Provider Reason for Visit * Reason Onset Date Comments maxwell recall 02/26/2025 Encounter Details Date Type Department Care Team ([facility] st Contact Info) Description 02/26/2025 Telephone [facility] MEDICINE [address] [place] [address] Nerissa Nelson MA april recall Social History Tobacco Use Types Packs/Day Years [...] Telephone Encounter - Nerissa Nelson MA - 02/26/2025 3:23 PM EDT ..Telephone call to patient to schedule a recall appointment. No answer, Left voicemail to return call to clinic.. Recall letter sent. Visit type: Pap Appointment notes: PAP Month due: April With: David Please schedule appointment above if patient returns call documented in this encounter Plan of Treatment Upcoming Encounters Date Type Department Care Team (Late st Contact Info) Description 03/25/2025 3:00 PM EDT Office Visit [facility] OPTOMETRY [address] [place] [address] Krish, Mica, OD 230 [place] [address] documented as of this encounter Visit Diagnoses Not on filedocumented in this encounter Additional Health Concerns Assessment Noted Time PHQ-9 Depression Total Score: 8 01/13/20 25 2:57 PM EST documented as of this encounter Care Teams Area Director Of Home Health Sales Relationship Specialty Start Date End Date Xiomara Hernandez MD [address] [place] [address] PCP - General Family Medicine 05/02/22 documented as of this encounter
== END 2025-03-03 09:07 | disposition home or self-care (01) ==
LOC: HO.HWS 08:17
PROVIDERS: PCP Family Medicine; Visit Provider Obstetrics & Gynecology
DX: R87.610 Atypical squamous cells of undetermined significance on cytologic smear of cervix (ASC-US) (principal); R87.810 Cervical high risk human papillomavirus (HPV) DNA test positive
CPT/HCPCS: 57421

== ENCOUNTER 2025-03-03 08:17 | Outpatient (REF) | payer OTHER, SELFPAY ==
--- OUTSIDE RECORDS SUMMARY | 2025-03-03 09:51 | XMS_ITS | Encounter Summary ---
Author Organization [employer] Address [address] [place] [address] Care Team Providers Care National Secretary Name Role Phone Xiomara Hernandez MD Primary Care Provider [phone] Reason for Visit * Reason Onset Date Comments Med Refill 10/13/2023 Encounter Details Date Type Department Care Team (Late st Contact Info) Description 10/13/2023 Refill [facility] MEDICINE [address] [place] [address] Xiomara Hernandez MD [address] [place] [address] Social History Tobacco Use Types Packs/Day Years [...] Description 03/25/2025 3:00 PM EDT Office Visit [facility] OPTOMETRY [address] [place] [address] Mica Rutherford, OD [address] [place] [address] documented as of this encounter Visit Diagnoses Not on filedocumented in this encounter Care Teams National Secretary Relationship Specialty Start Date End Date Xiomara Hernandez MD [address] [place] [address] PCP - General Family Medicine 05/02/22 documented as of this encounter
--- OUTSIDE RECORDS SUMMARY | 2025-03-03 09:51 | XMS_ITS | Encounter Summary ---
Author Organization [employer] Address [address] [place] [address] [address], [place] [address] Care Team Providers Care Tour Guide Name Role Phone Xiomara Hernandez MD Primary Care Provider [phone] Reason for Visit * Reason Onset Date Comments Referral 11/03/2024 Encounter Details Date Type Department Care Team ([facility] st Contact Info) Description 11/03/2024 Telephone [facility] MEDICINE 230 [place], [place] [phone] Xiomara Hernandez MD 230 [place] [address] Referral Social History Tobacco Use Types Packs/Day [...] like a referral placed to Ambar Ly, College Football Coach at [facility]. The pt would like this done due to her being diagnosed pre diabetic and would like to have dietary change to help bring down her glucose trends. Pt informed that this information willbe sent to PCP for review. * Telephone Encounter - Keith Davies - 11/03/2024 12:10 PM EST Tc from requesting a referral for a Neuronist at [facility] Dr Nuris Ly. IF any questions contact pt at [phone] documented in this encounter Plan of Treatment Upcoming Encounters Date Type Department Care Team (Late st Contact Info) Description 03/25/2025 3:00 PM EDT Office Visit [facility] OPTOMETRY [address] [place] [address] Mica Rutherford, OD [address] [place] [address] documented as of this encounter Visit Diagnoses Not on filedocumented in this encounter Additional Health Concerns Assessment Noted Time PHQ-9 Depression Total Score: 0 12/03/19 24 2:34 PM EST documented as of this encounter Care Teams Tour Guide Relationship Specialty Start Date End Date Xiomara Hernandez MD [address] [place] [address] PCP - General Family Medicine 05/02/22 documented as of this encounter
--- OUTSIDE RECORDS SUMMARY | 2025-03-03 09:51 | XMS_ITS | Encounter Summary ---
Author Organization [employer] Address 75 [facility] 7 [place] [address] Care Team Providers Care Discount Clerk Name Role Phone Xiomara Hernandez MD Primary Care Provider Encounter Details Date Type Department Care Team (Late st Contact Info) Description 01/13/2025 Orders Only [facility] MEDICINE 230 [place], [place] [phone] Xiomara Hernandez MD 230 [place], [place] [phone] Constipation, unspecified constipation type (Primary Dx); Transaminitis [...] Description 03/25/2025 3:00 PM EDT Office Visit [facility] OPTOMETRY [address] [place] [address] Krish, Mica, OD [address] [place] [address] documented as of this encounter Procedures Procedure Name Priority Date/Time Associated Diagnosis Comments HELICOBACTER PYLORI AG, EIA, STOOL Routine 01/19/2025 7:00 PM EDT Constipation, unspecified constipation type Transaminitis documented in this encounter Results * (ABNORMAL) Helicobacter pylori??Antigen, EIA, Stool (01/19/2025 7:00 PM EDT) H pylori Ag Stool SEE NOTE(A) [facility] Comment:HELICOBACTER PYLORI AG, EIA, STOOL Micro Number: [id number] Test Status: Final Specimen Source: Stool Specimen Quality: Adequate H.pylori Ag: Detected Reference Range: Not DetectedTHIS TEST WAS PERFORMED AT:[facility] [place] [id number] JAIMES MD Stool Rectal contents / Unknown 01/19/2025 7:00 PM EDT 01/20/2025 10:23 AM EDT us Xiomaar Hernandez MD LAB BODY FLUIDS AND STOOLS ORDER LENA Final Result [facility] [address] [place] [address] [phone] documented in this encounter Visit Diagnoses Diagnosis Constipation, unspecified constipation type- Primary Transaminitis Nonspecific elevation of levels of transaminase or lactic acid dehydrogenase (LDH) documented in this encounter Additional Health Concerns Assessment Noted Time PHQ-9 Depression Total Score: 8 01/13/20 25 2:57 PM EST documented as of this encounter Care Teams Discount Clerk Relationship Specialty Start Date End Date Xiomara Hernandez MD [address] [place] [address] PCP - General Family Medicine 05/02/22 documented as of this encounter
--- OUTSIDE RECORDS SUMMARY | 2025-03-03 09:51 | XMS_ITS | Encounter Summary ---
Author Organization [employer] Address 75 [facility] [address]t [place] [address] Care Team Providers Care Key Filer Name Role Phone Xiomara Hernandez MD Primary Care Provider Reason for Referral * Consultation (Routine) - Pending Review Specialty Diagnoses / Procedures Referred By Kamran barajas Referred To Contact Ophthalmology Diagnoses Vision problem Xiomara Hernandez MD [address] [place] [address] Phone: tel: fax: [facility] Referral ID Status Reason Start Date Expiration Date Visits Requested Visits Authorized [id number] Pending Review Specialty Services Required 02/04/2025 02/04/2026 1 1 * Consultation (Routine) - Closed Specialty Diagnoses / Procedures Referred By Kamran barajas Referred To Contact Nutrition Diagnoses Class 2 obesity due to excess calories without serious comorbidity with body mass index (BMI) of 35.0 to 35.9 in adult Vitamin D deficiency Prediabetes Xiomara Hernandez MD [address] [place] [address] Phone: tel: fax: Ambar Ly [address] [place] [address] [address] [place] [address] Phone: tel: Referral ID Status Reason Start Date Expiration Date V isits Requested Visits Authorized [id number] Closed Specialty Services Required 02/04/2025 02/04/2026 1 1 Encounter Details Date Type Department Care Team (Late st Contact Info) Description 02/04/2025 Orders Only [facility] MEDICINE [address] [place] [address] Xiomara Hernandez MD [address] [place] [address] Class 2 obesity due to excess calories [...] Description 03/25/2025 3:00 PM EDT Office Visit [facility] OPTOMETRY [address] [place] [address] Krish, Mica, OD [address] [place] [address] Scheduled Referrals Name Type Priority Associated Diagnoses [...] documented as of this encounter Care Teams Key Filer Relationship Specialty Start Date End Date Xiomara Hernandez MD [address] [place] [address] PCP - General Family Medicine 05/02/22 documented as of this encounter
--- OUTSIDE RECORDS SUMMARY | 2025-03-03 09:51 | XMS_ITS | Encounter Summary ---
Author Organization [employer] Address [address] [place] [address] Care Team Providers Care Basin Operator Name Role Phone Xiomara Hernandez MD Primary Care Provider [phone] Encounter Details Date Type Department Care Team (Late st Contact Info) Description 06/07/2023 Abstract [facility] MEDICINE [address] [place] [address] Xiomara Hernandez MD [address] [place] [address] Social History Tobacco Use Types Packs/Day Years [...] Description 03/25/2025 3:00 PM EDT Office Visit [facility] OPTOMETRY [address] [place] [address] Mica Rutherford, OD 230 [place] [address] documented as of this encounter Visit Diagnoses Not on filedocumented in this encounter Care Teams Basin Operator Relationship Specialty Start Date End Date Xiomara Hernandez MD [address] [place] [address] PCP - General Family Medicine 05/02/22 documented as of this encounter
--- OUTSIDE RECORDS SUMMARY | 2025-03-03 09:51 | XMS_ITS | Encounter Summary ---
Author Organization [employer] Address [address] [place] [address] [address] [address] Care Team Providers Care Livestock Farmworker Name Role Phone Xiomara Hernandez MD Primary Care Provider [phone] Reason for Referral * Consultation (Routine) - Pending Review Specialty Diagnoses / Procedures Referred By Kamran barajas Referred To Contact Nutrition Diagnoses Prediabetes Xiomara Hernandez MD [address] [place] [address] Phone: tel: fax: Referral ID Status Reason Start Date Expiration Date Visits Requested Visits Authorized [id number] Pending Review Specialty Services Required 4 11/03/2025 1 1 Encounter Details Date Type Department Care Team (Late st Contact Info) Description 11/03/2024 Orders Only [facility] MEDICINE [address] [place], [place] [phone] Xiomara Hernandez MD [address] [place], [place] [phone] Prediabetes (Primary Dx) Social History Tobacco Use [...] Description 03/25/2025 3:00 PM EDT Office Visit [facility] OPTOMETRY [address] [place] [address] Krish, Mica, OD 230 [place] [address] Scheduled Referrals Name Type Priority Associated Diagnoses Orde r Schedule Referral to Nutrition Therapy Outpatient Referral Routine Prediabetes Expected: 11/03/2024 (Approximate), Expires: 11/03/2025 documented as of this encounter Visit Diagnoses Diagnosis Prediabetes- Primary Other abnormal glucose documented in this encounter Additional Health Concerns Assessment Noted Time PHQ-9 Depression Total Score: 0 12/03/19 24 2:34 PM EST documented as of this encounter Care Teams Livestock Farmworker Relationship Specialty Start Date End Date Xiomara Hernandez MD [address] [place] [address] PCP - General Family Medicine 05/02/22 documented as of this encounter
--- OUTSIDE RECORDS SUMMARY | 2025-03-03 09:51 | XMS_ITS | Encounter Summary ---
Author Organization [employer] Address 75 [facility] 7 [place] [address] Care Team Providers Care Crystal Inspector Name Role Phone Xiomara Hernandez MD Primary Care Provider [phone] Encounter Details Date Type Department Care Team (Late st Contact Info) Description 01/21/2025 Orders Only [facility] MEDICINE [address] [place], [place] [phone] Xiomara Hernandez MD [address] [place], [place] [phone] Social History Tobacco Use Types Packs/Day Years [...] 3:00 PM EDT Office Visit [facility] OPTOMETRY [address] [place] [address] Krish, Mica, OD 230 [place] [address] documented as of this encounter Visit Diagnoses Not on filedocumented in this encounter Additional Health Concerns Assessment Noted Time PHQ-9 Depression Total Score: 8 01/13/20 25 2:57 PM EST documented as of this encounter Care Teams Crystal Inspector Relationship Specialty Start Date End Date Xiomara Hernandez MD [address] [place] [address] PCP - General Family Medicine 05/02/22 documented as of this encounter
--- OUTSIDE RECORDS SUMMARY | 2025-03-03 09:51 | XMS_ITS | Encounter Summary ---
Author Organization [employer] Address 75 [facility] 7 [place] [address] Care Team Providers Care Telephonic Case Manager Name Role Phone Xiomara Hernandez MD Primary Care Provider [phone] Reason for Visit * Reason Onset Date Comments maxwell recall 02/26/2025 Encounter Details Date Type Department Care Team ([facility] st Contact Info) Description 02/26/[address] [facility] MEDICINE [address] [place] [address] Nerissa Nelson [place] april recall Social History [...] 3:00 PM EDT Office Visit [facility] OPTOMETRY [address] [place] [address] Krish, Mica, OD 230 [place] [address] documented as of this encounter Visit Diagnoses Not on filedocumented in this encounter Additional Health Concerns Assessment Noted Time PHQ-9 Depression Total Score: 8 01/13/20 25 2:57 PM EST documented as of this encounter Care Teams Telephonic Case Manager Relationship Specialty Start Date End Date Xiomara Hernandez MD [address] [place] [address] PCP - General Family Medicine 05/02/22 documented as of this encounter
--- OUTSIDE RECORDS SUMMARY | 2025-03-03 09:51 | XMS_ITS | Clinical Summary ---
Author Organization [facility] Address [address] [place] [address] 7 [place] [address] Care Team Providers Care Nursing Unit Manager Name Role Phone Xiomara Hernandez MD Primary Care Provider [phone] Allergies No known active allergies Medications polyvinyl [...] 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 - upcoming appointment with [employer] ORIGINATOR ASSISTANT in February 2025 Heartburn 12/13/2023 Assessment & [...] Plan (01/12/2025 1:13 PM EST): Previously seeing [facility] neurology, referred back in Jun 2022. Pt will call to schedule appt. Continue (resume) Magnesium oxide. Assessment & Plan (12/13/2023 6:34 AM EST): Previously seeing [facility] neurology, referred back in Jun 2022. Pt will call to schedule appt. Continue (resume) Magnesium oxide. Assessment & Plan (10/25/2022 12:17 PM EST): ?? Previously seeing [facility] neurology, referred back in Jun 2022. [...] Type Department Care Team Description 02/26/2025 Telephone [facility] [address] [place] [phone] Nerissa Nelson MA maxwell recall 02/04/2025 Orders Only [facility] [address] [place] [address] Xiomara Hernandez MD Class 2 obesity due to excess calories without serious comorbidity with body mass index (BMI) of 35.0 to 35.9 in adult (Primary Dx); Vitamin D deficiency; Prediabetes; Vision problem 02/04/2025 Orders Only [facility] [address] [place] [address] Kobe Mauricio CNM History of cervical dysplasia (Primary Dx) 01/21/2025 Orders Only [address] [address] Xiomara Hernandez MD 01/21/2025 Orders Only [address] [address] Xiomara Hernandez MD Helicobacter pylori gastrointestinal tract infection (Primary Dx) 01/14/[address] [address] Xiomara Hernandez MD Results 01/13/2025 Orders Only [address] [address] Xiomara Hernandez MD Constipation, unspecified constipation type (Primary Dx); Transaminitis 01/12/2025 1:45 PM EST Office Visit [address] [address] Xiomara Hernandez MD Routine general medical examination [...] Travel 01/11/2025 2:00 PM EST Clinical Support [facility] [address] [place] [address] Pre-diabetes (Primary Dx) 01/11/2025 Travel 01/06/[address] [address] Nerissa Nelson MA chart prep 01/05/2025 Patient Outreach [address] [phone] Xiomara Hernandez MD Care Coordination (CHW outreach for SDOH food needs - LVM ) 01/05/2025 Patient Outreach [address] [phone] Xiomara Hernandez MD Pre-visit Planning (SDOH Screening positive and Tobacco screening negative) 12/22/2024 Orders Only [facility] [address] [facility] [place] [address] Kobe Mauricio CNM ASCUS with positive high risk HPV cervical (Primary Dx) 12/15/2024 2:30 PM EST Nutrition [facility] [address] [facility] [place] [address] Prediabetes (Primary Dx) 12/08/2024 [...] 03/25/2025 3:00 PM EDT Office Visit [facility] [address] [place] [address] Mica Rutherford, OD [address] [place] [address] Health Maintenance Due Date Last Done Comments [...] EDT) H pylori Ag Stool SEE NOTE(A) [facility] Comment:HELICOBACTER PYLORI AG, EIA, STOOL Micro Number: [id number] Test Status: Final Specimen Source: Stool Specimen Quality: Adequate H.pylori Ag: Detected Reference Range: Not DetectedTHIS TEST WAS PERFORMED AT:[employer] [place] [phone] JAIMES MD Stool Rectal contents / Unknown 01/19/2025 7:00 PM EDT 01/20/2025 10:23 AM EDT Xiomara Hernandez MD LAB BODY FLUIDS AND STOOLS ORDER LENA Final Result Performing Organization Address [facility] Co de Phone Number [facility] [address] [place] [phone] * Syphilis Screen (01/12/2025 2:49 PM EST) Syphilis Screen Nonreactive Nonreactive [facility] Blood 01/12/2025 2:49 PM EST 01/12/2025 4:06 PM EST Xiomara Hernandez MD LAB BLOOD ORDERABLES Final Resul t Performing Organization Address [facility] Co de Phone Number [facility] [address] [place] [phone] * (ABNORMAL) Vitamin D, 25-Hydroxy, Total, Immunoassay (01/12/2025 2:49 PM EST) Vitamin D 25-OH Total 22.6(L) >30 ng/mL [facility] Comment:Health Based Referen ce Values*< 20 ng/mL Kayfywwee99-32 ng/mL Insufficient> 30 ng/mL Sufficient*Iggy FAIRCHILD. N [...] ORDERABLES Final Resul t Performing Organization Address City/[facility]/ZIP Co de Phone Number [facility] [address] [place] [phone] * TSH with Reflex to Free T4 (01/12/2025 2:49 PM EST) TSH reflex Free T4 0.98 0.32 - 4.0 uIU/mL [facility] Blood 01/12/2025 2:49 PM EST 01/12/2025 4:06 PM EST Xiomara Hernandez MD LAB BLOOD ORDERABLES Final Resul t Performing Organization Address City/[facility]/ZIP Co de Phone Number [facility] [address] [place] [phone] * (ABNORMAL) Lipid Panel with Reflex to Direct LDL (01/12/2025 2:49 PM EST) Triglycerides 135 <150 mg/dL [facility] Comment:Desirable Triglyceri de: less than 150 mg/dLBorderline High Triglyceride 150-199 mg/dLHigh Triglyceride: 200-499 mg/dLVery High Triglyceride: greater than or equal to 5OO mg/dL Cholesterol 202(H) <200 mg/dL [facility] Comment:Desirable Cholestero l: less than 200 mg/dLBorderline High Cholesterol: 200-239 mg/dLHigh Cholesterol: greater than 239 mg/dL LDL Cholesterol Calculated 128(H) <100 mg/dL [facility] Comment:Desirable LDL: less than 100 mg/dLNear Optimal/Above Optimal LDL: 110- 129 mg/dLBorderline High LDL: 130-159 mg/dLHigh LDL: 160-189 mg/dLVery High LDL: greater than or equal to 190 mg/dL HDL Cholesterol 47 >40 mg/dL [facility] Comment:Desirable HDL: great er than 40 mg/dL Note: This HDL assay may give artificially low results in patients with liver disease. Blood 01/12/2025 2:49 PM EST 01/12/2025 4:06 PM EST us Xiomara Hernandez MD LAB BLOOD ORDERABLES Final Resul t [facility] [address] [place] [address] [phone] * CBC auto differential (01/12/2025 2:49 PM EST) White Blood Count 6.0 4.8 - 10.8 X10*3/uL [facility] Red Blood Count 4.59 4.20 - 5.50 X10*6/uL [facility] Hemoglobin 13.0 12.0 - 16.0 g/dl [facility] Hematocrit 39.9 37.0 - 47.0 % [facility] Mean Corpuscular Volume 86.9 80.0 - 98.0 fL [facility] Mean Corpuscular Hemoglobin 28.3 27.0 - 33.0 pg [facility] Mean Corpuscular HGB Conc 32.6 31.0 - 35.0 g/dl [facility] Red Cell Distribution Width 13.0 11.0 - 16.0 % [facility] Platelet Count 316 160 - 400 X10*3/uL [facility] Mean Platelet Volume 10.2 9.4 - 12.3 fL [facility] Neutrophils Percent Auto 54.4 45 - 73 % [facility] Imm Gran Pct Auto 0.2 0.0 - 0.4 % [facility] Lymphocytes Percent Auto 37.0 20 - 40 % [facility] Monocytes Percent Auto 6.6 2 - 11 % [facility] Eosinophils Percent Auto 1.3 0 - 4 % [facility] Basophils Percent Auto 0.5 0 - 2 % [facility] NRBC Pct Auto 0.0 0.0 - 0.2 /100WBC [facility] Neutrophils Absolute Auto 3.2 2.0 - 8.3 x10*3/uL [facility] Imm Gran Abs Auto 0.01 0.00 - 0.03 X10*3/uL [facility] Lymphocytes Absolute Auto 2.2 1.2 - 4.9 X10*3/uL [facility] Monocytes Absolute Auto 0.4 0.1 - 1.2 X10*3/uL [facility] Eosinophils Absolute Auto 0.1 0.0 - 0.4 X10*3/uL [facility] Basophils Absolute Auto 0.0 0.0 - 0.2 X10*3/uL [facility] NRBC Abs Auto 0.000 0.0 - 0.012 X10*3/uL [facility] Blood Venous blood specimen / Unknown 01/12/2025 2:49 PM EST 01/12/2025 4:06 PM EST us Xiomara Hernandez MD LAB BLOOD ORDERABLES Final Resul t [facility] [address] [place] [phone] [phone] * Hepatitis C Antibody with Reflex to HCV, RNA, Quantitative, Real-Time PCR (01/12/2025 2:49 PM EST) [facility] Hepatitis C Antibody Nonreactive Nonreactive [facility] Comment:Antibodies to HCV no t detected; does not exclude early acuteHCV infection. Blood Venous blood specimen / Unknown 01/12/2025 2:49 PM EST 01/12/2025 4:06 PM EST Xiomara Hernandez MD LAB BLOOD ORDERABLES Final Resul t Performing Organization Address [facility]/ZIP Co de Phone Number [facility] [address] [place] [phone] * Hepatitis A Antibody, Total (01/12/2025 2:49 PM EST) [facility] Hepatitis A Antibody IgG Nonreactive Nonreactive [facility] Blood Venous blood specimen / Unknown 01/12/2025 2:49 PM EST 01/12/2025 4:06 PM EST Xiomara Hernandez MD LAB BLOOD ORDERABLES Final Resul t Performing Organization Address [facility] Co de Phone Number [facility] [address] [place] [phone] * Chlamydia/N. Gonorrhoeae RNA, TMA, Urogenitial (01/12/2025 2:49 PM EST) [facility] CT PCR NOT DETECTED Not Detect. [facility] Comment:A not detected test result [...] psychologicalconsequences. NG PCR NOT DETECTED Not Detect. [facility] Comment:A not detected test result [...] PM EST 01/12/2025 4:36 PM EST Narrative [facility] - 01/13/2025 12:28 PM EST Urine Xiomara Hernandez MD LAB MICROBIOLOGY - GENERAL ORDER LENA Final Result Performing Organization Address [facility] Co de Phone Number [facility] [address] [place] [phone] * Hepatitis B surface antigen, EIA (01/12/2025 2:49 PM EST) Hepatitis B Surface Ag Negative Negative [facility] Blood Venous blood specimen / Unknown 01/12/2025 2:49 PM EST 01/12/2025 4:06 PM EST Xiomara Hernandez MD LAB BLOOD ORDERABLES Final Resul t Performing Organization Address [facility] Co de Phone Number [facility] [address] [place] [phone] * Hepatitis B Core Antibody, Total (01/12/2025 2:49 PM EST) [facility] Hepatitis B Core Antibody Nonreactive Nonreactive [facility] Blood Venous blood specimen / Unknown 01/12/2025 2:49 PM EST 01/12/2025 4:06 PM EST us Xiomara Hernandez MD LAB BLOOD ORDERABLES Final Resul t Performing Organization Address City/[facility]/ZIP Co de Phone Number [facility] [address] [place] [phone] * HIV-1/2 Antigen and Antibodies, Fourth Generation, with Reflexes (01/12/2025 2:49 PM EST) [facility] HIV AB/AG Nonreactive Nonreactive [facility] Comment:HIV-1 p24 Ag and/or HIV-1/HIV-2 Ab not detected.A test result that is nonreactive does not exclude thepossibility of exposure to or infection with HIV-1 and/orHIV-2. Nonreactive results in this assay for individualswith prior exposure to HIV-1 and/or HIV-2 may be due toantigen and antibody levels that are below the limit ofdetection of this assay.The [employer] HIV Ag/Ab Combo assay result andsupplemental assay results should be interpreted inconjunction with the patient's clinical presentation,history and other laboratory results. If the results areinconsistent with clinical evidence, additional testing issuggested to confirm the result. Blood Venous blood specimen / Unknown 01/12/2025 2:49 PM EST 01/12/2025 4:06 PM EST us Xiomara Hernandez MD LAB BLOOD ORDERABLES Final Resul t Performing Organization Address City/[facility]/ZIP Co de Phone Number [facility] [address] [place] [phone] [phone] * Hepatitis B Surface Antibody, Qualitative (01/12/2025 2:49 PM EST) Pathologist [facility] ~Hepatitis B Surface Antibody REACTIVE Nonreactive [facility] Comment:REACTIVE: > 11.99 mI U/mL Blood Venous blood specimen / Unknown 01/12/2025 2:49 PM EST 01/12/2025 4:06 PM EST Xiomara Hernandez MD LAB BLOOD ORDERABLES Final Resul t Performing Organization Address [facility] Co de Phone Number [facility] [address] [place] [phone] * Hemoglobin A1c (01/12/2025 2:49 PM EST) Pathologist [facility] Hemoglobin A1c 5.7 <6.0 % [facility] Comment:Hemoglobin A1C Refer ence Range Adults: 4.8 - 6.0 % Non diabetic: < 6.0 % Goal: < 7.0 %Additional Action Suggested: > 8.0 %Note: Hemoglobin A1c results are invalid for patients with abnormal amounts of HbF. Blood transfusions may impact the HbA1c concentration in the patient sample. Estimated Average Glucose 117 mg/dL [facility] Comment:eAG = Estimated ave rage glucose which is %A1C expressed asaverage glucose, using the formula of the M4O-GqktjqtJgwvhth Glucose study (ADAG), Diabetes Care, Vol.31,#8,Jun. 2007 Blood Venous blood specimen / Unknown 01/12/2025 2:49 PM EST 01/12/2025 4:06 PM EST us Xiomara Hernandez MD LAB BLOOD ORDERABLES Final Resul t Performing Organization Address [facility]/ZIP Co de Phone Number [facility] [address] [place] [phone] * (ABNORMAL) Comprehensive Metabolic Panel (01/12/2025 2:49 PM EST) Pathologist [facility] Sodium 138 135 - 145 mmol/L [facility] Potassium 4.1 3.3 - 5.1 mmol/L [facility] Chloride 104 96 - 108 mmol/L [facility] Carbon Dioxide 27 22 - 29 mmol/L [facility] Anion Gap 11(L) 12 - 20 [facility] Urea Nitrogen (BUN) 16 9 - 16 mg/dL [facility] Creatinine, Serum 0.85 0.5 - 1.4 mg/dL [facility] Estimated Glomerular Filt Rate >60 [facility] Comment:Chronic Kidney Disea se: Estimated GFR < 60 mL/min/1.87a9Bggunf Kidney Disease: Estimated GFR < 15 mL/min/1.73m2 Glucose 89 60 - 115 mg/dL [facility] Calcium 10.0 8.4 - 10.2 mg/dL [facility] Bilirubin, Total 0.4 0.0 - 1.0 mg/dL [facility] Aspartate Amino Transferase 33(H) 5 - 31 U/L [facility] Alanine Aminotransferase 39(H) 0 - 31 U/L [facility] Total Protein 8.6(H) 6.5 - 8.0 g/dL [facility] Albumin Level 4.5 3.5 - 5.0 g/dL [facility] Alkaline Phosphatase 48 39 - 117 U/L [facility] Blood Venous blood specimen / Unknown 01/12/2025 2:49 PM EST 01/12/2025 4:06 PM EST us Xiomara Hernandez MD LAB BLOOD ORDERABLES Final Resul t [facility] [address] [place] [phone] * Pap Smear (10/15/2024 11:42 AM EST) Swab Vaginal structure / Unknown 10/15/2024 11:42 AM EST 10/16/2024 10:00 AM EST Narrative [facility] - 10/21/2024 4:12 PM EST ----- ------- Name: Julio CElvia ?Age/Sex: 34/F ? : 1990 Unit#: [id number] ?? Attend Dr: KOBE MAURICIO CNM ?Re10/15/24 ?Status: DEP REF ? [facility] ? Disch: ? ----- ------- SPEC : [id number] ?RECD: 10/16/24-999 ? STATUS: ??SOUT ? REQ NUM: [id number] ? DOM: 10/15/24-114 ? SUBM DR: KOBE [...] END OF REPORT ? us Kobe Mauricio [facility] CYTOLOGY ORDERABLES F inal Result [facility] [address] [place] [phone] from Last 3 Months or Most Recently Relevant to Health Maintenance Insurance [employer] Care Teams Nursing Unit Manager Relationship Specialty Start Date End Date Xiomara Hernandez MD [address] [place] [phone] PCP - General Family Medicine 05/02/22
== END 2025-03-03 08:18 | disposition home or self-care (01) ==
LOC: HO.LNP 08:17
PROVIDERS: PCP Family Medicine; Visit Provider Obstetrics & Gynecology
DX: R87.610 Atypical squamous cells of undetermined significance on cytologic smear of cervix (ASC-US) (principal); R87.810 Cervical high risk human papillomavirus (HPV) DNA test positive
CPT/HCPCS: 57421; 88305

== ENCOUNTER 2025-04-01 14:44 | Outpatient (AMB) | payer OTHER, SELFPAY ==
--- NOTE | 2025-04-01 14:44 | MHC.OFFVIS ---
Intake Visit Reasons: TV Colpo results Allergies shellfish derived Allergy (Severe, Verified 03/03/25 08:27) Anaphylaxis HPI Comments Details: The patient is scheduled a telehealth visit post colpo for follow-up. The patient is doing well with no complaints. The pathology showed the following: A. Cervix, 8 o'clock, biopsy: - Low-grade squamous intraepithelial lesion (AARON 1). - No endocervical epithelium identified. B. Cervix, 10 o'clock, biopsy: - Inflamed squamous mucosa with reactive changes. - No endocervical epithelium identified. 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 Surgical History Hx of eye surgery History of partial hysterectomy Family History Mother HTN (hypertension) Father Diabetes Cirrhosis Sister Stroke Social History Household Members: Spouse and Children Housing: House Alcohol intake: former Patient Tobacco Use Status: Former Tobacco user Years Smoked: 5 Current occupational status: employed 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[employer] Sexual orientation: Straight/Heterosexual Gender identity: Female Review of Systems Const All systems reviewed & are unremarkable except as noted in HPI and below Reports as per HPI and Reports no additional complaints GI Reports no additional complaints Reports no additional complaints Telehealth Telehealth Telehealth Platform: Telephone Location of provider rendering services: practice address Location of patient: address on file Patient Identification confirmed using: Name, : Yes Telehealth method: video Patient verbally consented to treatment: Yes Patient verbally consented to billing insurance company: Yes Patient informed of any privacy concerns related to visit: Yes Minutes spent on Phone/Video with Pt.: 2 Assessment & Plan Assessment & Plan (1) Dysplasia of cervix, low grade (AARON 1): Code(s): N87.0 - Mild cervical dysplasia Category: Medical Plan: Discussed with the patient the pathology results of the colposcopy biopsies & endocervical curettage ( mild dysplasia-AARON 1). Discussed with the patient the sensitivity specificity, positive and negative predictive value in detecting cervical cancer in addition discussed the regression, persistence and progression rates. Recommended co-testing in 12 months, if cytology and or HPV are abnormal will proceed was colposcopy biopsy and endocervical curettage, if lesions gets worse or stays persistent for 2 years will proceed with loop electric excision procedure. Instructions given to the patient to schedule a co test appointment in 1 year. All questions answered the patient verbalized understanding. I spent a total of 20 minutes reviewing the chart, talking to the patient via video and documenting in the medical record. Coding Level of Care Code Tele Est Pt Level 3 (51347) Diagnoses Dysplasia of cervix, low grade (AARON 1) N87.0
== END 2025-04-01 14:53 | disposition home or self-care (01) ==
LOC: HO.HWS 14:44
PROVIDERS: PCP Family Medicine; Visit Provider Obstetrics & Gynecology
DX: N87.0 Mild cervical dysplasia (principal)
CPT/HCPCS: 99213

== ENCOUNTER 2025-05-13 13:46 | Outpatient (AMB) | payer OTHER, SELFPAY ==
--- OUTSIDE RECORDS SUMMARY | 2025-05-13 13:51 | XMS_ITS | Encounter Summary ---
Author Organization [employer] Address [address] [facility] [address] [place] [address] Care Team Providers Care Business Team Leader Name Role Phone Xiomara Hernandez MD Primary Care Provider [phone] Encounter Details Date Type Department Care Team (Late st Contact Info) Description 01/21/2025 Orders Only [facility] [address] [place], [place] [phone] Xiomara Hernandez MD [address] [place], [place] [phone] Social History Tobacco Use Types Packs/Day Years [...] as of this encounter Plan of Treatment Not on file documented as of this encounter Visit Diagnoses Not on filedocumented in this encounter Additional Health Concerns Assessment Noted Time PHQ-9 Depression Total Score: 8 01/13/20 25 2:57 PM EST documented as of this encounter Care Teams Business Team Leader Relationship Specialty Start Date End Date Xiomara Hernandez MD [address] [place] [address] PCP - General Family Medicine 05/02/22 documented as of this encounter
[2025-05-13 14:12] VITALS: BMI 35.4
--- NOTE | 2025-05-13 14:12 | A.OFFVIS_ITS ---
VS Expanded 05/13/25 14:12 05/27/25 15:08 Height 5 ft 6 in 5 ft 6 in Weight 219 lb 9.286 oz 220 lb BMI 35.4 35.5 Intake Visit Reasons: Obesity Allergies shellfish derived Allergy (Severe, Verified 03/03/25 08:27) Anaphylaxis Nutrition Presentation Details: Pt presents for MNT for obesity Pt reports having tried intermittent fasting in the past with minimal success due to increased hunger food frequency 10: eggs or sausage with honey, coffee with honey 1 pm : potatoes or chicken , water or juice 6 pm : leftover chicken and white rice , sargent juice 10: sandwich ,water or juice food frequency fish: 0-1/wk fruits: none , has juices yogurt: 3 x/wk vegetables: 2x/wk PA walking 30 min 5 x/wk etoh/smoking denies BS Monitoring Most Recent Diabetes Results: Cholesterol, (<200) 202 mg/dL H 01/12/25 HDL Cholesterol, (>40) 47 mg/dL 01/12/25 Triglycerides, (<150) 135 mg/dL 01/12/25 Creatinine, (0.5-1.4) 0.85 mg/dL 01/12/25 BUN, (9-16) 16 mg/dL 01/12/25 Sodium, (135-145) 138 mmol/L 01/12/25 Potassium, (3.3-5.1) 4.1 mmol/L 01/12/25 Chloride, (96-108) 104 mmol/L 01/12/25 Carbon Dioxide, (22-29) 27 mmol/L 01/12/25 Calcium, (8.4-10.2) 10.0 mg/dL Δ 01/12/25 AST, (5-31) 33 U/L H 01/12/25 ALT, (0-31) 39 U/L H 01/12/25 Total Protein, (6.5-8.0) 8.6 g/dL H 01/12/25 Albumin, (3.5-5.0) 4.5 g/dL 01/12/25 KTU-Fbgzmuf-Vw.Jeor Equation Height: 5 ft 6 in Weight: 220 lb Resting Metabolic Rate: 1706.54 Calculated Activity Level: Sedentary Calories Needed to Maintain Weight: 2047.85 Diagnosis Nutrition problem #1: excessive energy intake As related to (etiology) #1: diagnosis As evidenced by (sign/symptom) #1: high BMI (35.5 (06/04)) [facility] Medical History (Updated 05/27/25 @ 15:[address], LDN) AARON 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 Surgical History Hx of eye surgery History of partial hysterectomy Family History Mother HTN (hypertension) Father Diabetes Cirrhosis Sister Stroke Social History Household Members: Spouse and Children Housing: House Alcohol intake: former Patient Tobacco Use Status: Former Tobacco user Years Smoked: 5 Current occupational status: employed 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[employer] [place] Sexual orientation: Straight/Heterosexual Gender identity: Female Assessment & Plan Assessment & Plan (1) Obesity (BMI 30-39.9): Code(s): E66.9 - Obesity, unspecified Category: Medical Plan: Wt: 100 Kg ( 06/04 ) Est kcal needs as per MSJ: 2000 (40% carb, 30% protein/fat) Est fluid needs as per 25-30 ml/d: 3000 Est prot per day as per 1 g/kg bw: 100 Recommend fiber intake : 8-10 g per day and gradually increase to 25-28 g per day for women and 35-38 g for men or as tolerated Recommend sodium intake per day : less than 2300 mg Educated patient on: ( R = reviewed V = verbalizes understanding N/R = needs review N/A = not applicable * Food sources of carbohydrate, adequate serving sizes and its role in various health conditions: R * Differences between complex carbohydrates a simple carbohydrates, role of fiber in diet: R * Lean protein sources of foods: R * Differences between types of fats and role in diet (mono on saturated fat fatty acids, saturated fatty acids, trans fats): R V N/R * Food sources of sodium in salt and healthy modifications for heart health in kidney health: R V R/V * Vitamins and minerals: R V N/R * Healthy plate method concept: R * Physical activity: Benefits a precaution: R V * Patient Instructions: Have water with meals. snacks, reducing on sugar from beverages Reduce total carb at dinner to 60 g or less following healthy plate method - see meal ideas Coding Level of Care Code Nutr Indiv Intake (98515) Diagnoses Obesity (BMI 30-39.9) E66.9 Time Spent (min) 30
[2025-05-27 15:08] VITALS: BMI 35.5
== END 2025-05-13 14:53 | disposition home or self-care (01) ==
LOC: HO.ENCR 13:47
PROVIDERS: PCP Family Medicine; Visit Provider Dietitian, Registered
DX: E66.9 Obesity, unspecified (principal)

== ENCOUNTER → 2025-05-13 13:46 | Outpatient (BNVA) | payer OTHER, SELFPAY | PROVIDERS: PCP Family Medicine; Visit Provider Dietitian, Registered | DX: Z71.3 Dietary counseling and surveillance (principal); E66.9 Obesity, unspecified | CPT/HCPCS: 97802 ==

== ENCOUNTER 2025-07-05 12:58 | Outpatient (AMB) | payer OTHER, SELFPAY ==
[2025-07-05 13:11] VITALS: BP 130/60; PULSE 101; RESP 18; TEMP 36.3; O2SAT 98; BMI 36.0
--- NOTE | 2025-07-05 13:11 | A.OFFPC_ITS ---
Vital Signs 07/05/25 13:11 Height 5 ft 6 in Weight 223 lb 2 oz BMI 36.0 BP 130/60 Blood Pressure Location Lt brachial Position Sitting Respiration 18 Pulse 101 H Pulse Source Pulse Oximeter Temp 97.3 F Temp Source Temporal Artery Scan Pulse Oximetry (%) 98 Oxygen Delivery Method Room Air Intake Visit Reasons: establish care Manager Integration Required: No Accompanied by: Self / Same As Patient Allergies shellfish derived Allergy (Severe, Verified 07/05/25 13:15) Anaphylaxis Medication List - Last Reconciled 07/05/25 by KRISTAL Piedra magnesium oxide 241.3 mg PO BID omeprazole 20 mg PO DAILY Tobacco use date assessed: 07/05/25 Dental Screening Dental Screen Date: 07/05/25 Did you have a dental visit in the last 12 months?: No Did you have a dental problem in the last 6 months where you did not have access to dental care?: No Was dental information given to patient?: No HPI establish care HPI Details Previous PCP: Dr. Navarro [facility] Last visit: January, Last PE: same [place] [facility] [place] [facility] [facility] [place] Past medical history: Medications: Family HX:DM, htn, cancer: dad passed from liver change, maternal aunt had breast cancer, maternal grand mother from [place] as well. Problem: The patient is a 35-year-old female presenting with heartburn, headaches, and constipation. The patient reports experiencing heartburn, which is sometimes alleviated by omeprazole, although she admits to inconsistent use of the medication. She notes that dietary choices, particularly spicy foods, exacerbate her symptoms, and she has been advised to take omeprazole 30 minutes before meals to improve efficacy. She has been experiencing recurrent headaches, which were previously managed with magnesium supplementation. The headaches have recently increased in frequency, and she acknowledges inadequate hydration, often substituting water with coffee, which may contribute to her symptoms. The patient reports constipation, with bowel movements occurring every three days, which she recognizes as suboptimal. She has been advised to increase fluid intake and consider using MiraLax for regularity. 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 She has been informed that factors such as weight gain and medication use could contribute to this elevation. The patient also has a history of hyperlipidemia, with recent lab results indicating elevated LDL cholesterol levels. She is aware of the need to manage her cholesterol levels through dietary modifications. Additionally, she has been identified with vitamin D deficiency, which may co ntribute to her fatigue. She has been advised to consider vitamin D supplementation to address this deficiency. Reports that she is seeing rubber goods supervisor as well. [facility] Medical History Constipation Heartburn Headache AARON 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 Surgical History (Updated 07/05/25 @ 14:00 by KRISTAL Piedra) Hx of eye surgery History of partial hysterectomy Family History (Updated 07/05/25 @ 14:48 by KRISTAL Piedra) Mother HTN (hypertension) Father Diabetes Cirrhosis Liver cancer Sister Stroke Maternal Aunt Breast cancer Social History Household Members: Spouse and Children Housing: House Alcohol intake: former Patient Tobacco Use Status: Former Tobacco user Years Smoked: 5 Current occupational status: employed 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 1. Little interest or pleasure in doing things: not at all 2. Feeling down, depressed, or hopeless: not at all 3. Trouble falling or staying asleep, or sleeping too much: not at all 4. Feeling tired or having little energy: several days 5. Poor appetite or overeating: not at all 6. Feeling bad about yourself - or that you are a failure or have let yourself or your family down: not at all 7. Trouble concentrating on things, such as reading the newspaper or watching television: not at all 8. Moving or speaking so slowly that other people could have noticed. Or the opposite - being so fidgety or restless that you have been moving around a lot more than usual: not at all 9. Thoughts that you would be better off or of hurting yourself in some way: not at all Total score: 1 Source: Developed by Drs. Prabhjot Gutierrez, Lorrie Tuttle, Andrew Black and colleagues, with an educational grady from [employer]. Thrive Questionnaire Date Thrive assessed: 07/05/25 I am a: Patient What is your living situation today?: I have a steady place to live Within the past 12 months, did the food you bought not last and you didn't have the money to get more?: Sometimes True Within the past 12 months, did you worry whether your food would run out before you got money to buy more?: Never true Do you have trouble paying for medicines?: Yes Do you have trouble getting transportation to medical appointments?: No Do you have trouble paying your heating and electricity bill?: Yes Do you have trouble taking care of your child, family member or friend?: No Do you have trouble with day-to-day activities such as bathing, preparing meals, shopping, managing finances, etc.?: No Are you currently unemployed and looking for a job?: No Are you interested in more education?: Yes Please select the resources that you would like help with: Utilities Currently or been in a relationship where the following occur: No concerns reported THRIVE Score: 2 AUDIT C Alcohol Use Questionnaire (AUDIT-C) 1. How often do you have a drink containing alcohol?: Never Total Score: 0 DAKSHA-7 AMB Questionnaire DAKSHA-7 Date DAKSHA - 7 assessed: 07/05/25 Feeling nervous, anxious, or on edge: 0 = Not at all Not being able to stop or control worryin = Not at all Worrying too much about different things: 0 = Not at all Trouble relaxin = Several days Being so restless that it is hard to sit still: 0 = Not at all Becoming easily annoyed or irritable: 1 = Several days Feeling afraid as if something awful might happen: 0 = Not at all Total DAKSHA-7 score (0-4 normal; 5-9 mild; 10-14 moderate; 15-21 severe): 2 Source: Developed by Drs. Prabhjot Gutierrez, Lorrie Tuttle, Andrew Black and colleagues, with an educational grady from [employer]. Review of Systems Const Reports headache(s) (on and off) Eyes Reports change in vision and Denies loss of vision ENT Denies vertigo, Denies dizziness, Reports headache(s) (on and off) and Denies sore throat Card Denies chest pain, Denies leg edema and Denies lightheadedness Resp Denies cough, Denies hemoptysis and Denies wheezing GI Denies abdominal pain, Denies melena, Reports constipation, Reports heartburn, Denies diarrhea and Denies vomiting Denies urinary frequency, Denies dysuria and Denies urinary urgency Musc Denies arthralgias, Denies joint swelling, Denies numbness and Denies tingling Neuro Denies Abnormal speech present, Denies behavioral changes, Denies vertigo, Denies dizziness, Reports headache(s) (on and off), Denies loss of vision, Denies memory loss, Denies numbness and Denies tingling Psych Denies anxiety, Denies behavioral changes, Denies depression, Denies memory loss and Denies panic attacks Tarun/Lymph Denies easy bleeding and Denies easy bruising Aller/Immun Denies wheezing Physical exam (Primary Care) Vital Signs: Last Vital Signs Temp 97.3 F 07/05/25 13:11 Pulse 101 H 07/05/25 13:11 Resp 18 07/05/25 13:11 BP 130/60 07/05/25 13:11 Pulse Ox 98 07/05/25 13:11 Oxygen Delivery Method Room Air 07/05/25 13:11 BMI result Body Mass Index 36.0 Tobacco/Smoking Status: Tobacco use Status Tobacco use date assessed 07/05/25 07/05/25 13:18 Patient Tobacco Use Status Former Tobacco user 07/05/25 13:18 PHQ-9: PHQ-9 Score PHQ-9: Total score 1 07/05/25 13:57 Thrive Assessment: Date of Thrive Assessment Date Thrive assessed 07/05/25 07/05/25 13:18 Currently or been in a relationship where the following occur: No concerns reported Const General: healthy appearing, no acute distress, alert and awake Nutritional Appearance: well nourished Orientation/consciousness: oriented to person, oriented to place and oriented to time HENMT Ears: Abnormal EAC present cerumen impaction bilateral General nose exam: Normal nasal mucous membranes and turbinates present Eyes Conjunctivae: conjunctivae normal Sclerae: sclerae normal Pupils: Equal, round and reactive pupils present Neck Neck: Yes no lymphadenopathy and Yes no JVD Thyroid: Thyroid normal Carotids: no bruits Resp Effort & Inspection: normal respiratory effort and not tachypneic Auscultation: no crackles, no rales, no rhonchi and no wheezes Cardio Rate: regular rate Rhythm: regular rhythm Heart sounds: no murmurs and normal S1 and S2 GI Palpation (GI): Soft to palpation, nontender, no hepatomegaly and no splenomegaly Auscultation: normal bowel sounds Skin General skin exam: no rashes or lesions noted and dry skin Neuro General: oriented to person, oriented to place and oriented to time Cranial nerves: Yes Equal, round and reactive pupils present Speech: No Abnormal speech present Gait exam (Neuro): Normal gait present Motor exam (neuro): no tremor noted Extrem Right upper extremity: full ROM Left upper extremity: full ROM Right lower extremity: full ROM; no edema Left lower extremity: full ROM; no edema Psych Mental Status: mental status grossly normal Speech and movement: Normal speech and movement present Affect: normal affect Attitude: cooperative Thought process: Normal thought process present Coding Level of Care Code New Pt Level 4 (12613) Diagnoses Hyperlipidemia, unspecified hyperlipidemia type E78.5 Hyperlipidemia type: unspecified Obesity (BMI 30-39.9) E66.9 Elevated liver enzymes R74.8 Hx of LASIK Z98.890 Change in vision H53.9 Constipation, unspecified constipation type K59.00 Constipation type: unspecified constipation type Bilateral impacted cerumen H61.23 Laterality: bilateral Heartburn R12 Chronic nonintractable headache, unspecified headache type R51.9; G89.29 Headache chronicity pattern: chronic headache Headache type: unspecified Intractability: not intractable Vitamin D deficiency E55.9 Time Spent (min) 37 Assessment & Plan Assessment & Plan (1) HLD (hyperlipidemia): Code(s): E78.5 - Hyperlipidemia, unspecified Category: Medical Qualifiers: Hyperlipidemia type: unspecified Qualified Code(s): E78.5 - Hyperlipidemia, unspecified Plan: Tri 135, t-chol 202, LDL 128, HDL 47, on 01/12/2025 Discussed lifestyle modifications including dietary changes and physical activity We will repeat lab and advise (2) Obesity (BMI 30-39.9): Code(s): E66.9 - Obesity, unspecified Category: Medical Plan: Encouraged to exercise for at least 30 minutes a day/5 days a week Healthy eating discussed. Encouraged to eat fruits/vegetables, protein- fish/baked chicken, and to avoid salty/fried foods, sweets, caffeine and carbohy drates. Encouraged to increase water intake 6-8 glasses a day (3) Elevated liver enzymes: Code(s): R74.8 - Abnormal levels of other serum enzymes Category: Medical Plan: The patient had labs done on 01/12/2025 shows an AST of 33 and ALT 39 limit alcohol, tylenol containing medications and high fat foods Will repeat labs to further evaluate (4) Hx of LASIK: Code(s): Z98.890 - Other specified postprocedural states Category: Surgical Plan: Ophthalmology referral placed (5) Change in vision: Code(s): H53.9 - Unspecified visual disturbance Category: Medical Plan: Same as above (6) Constipation: Code(s): K59.00 - Constipation, unspecified Category: Medical Qualifiers: Constipation type: unspecified constipation type Qualified Code(s): K59.00 - Constipation, unspecified Plan: Increase fiber in diet (fruits/vegetables 4-5 servings daily) Increase fluid intake and decrease caffeine/energy drinks (may cause mild dehydration) Encouraged regular exercise (e.g., biking, walking, running) (7) Cerumen impaction: Code(s): H61.20 - Impacted cerumen, unspecified ear Category: Medical Qualifiers: Laterality: bilateral Qualified Code(s): H61.23 - Impacted cerumen, bilateral Plan: Dark, hard cerumen blocking TMs, encouraged using Debrox ear gtts as instructed. She will get the kit and try to have a family flushes her ear at home. The process was explained to the patient. IF she does not see any return of cerumen with flushing, she will book an appointment in office to get her ear flush. (8) Heartburn: Code(s): R12 - Heartburn Category: Medical Plan: Do not eat meals or drink carbonated beverages within 3 hr of bedtime Decrease the amount of fried, fatty, and spicy foods to decrease gastric acid production Raise the head of the bed using 4 to 6-inch blocks, especially if nocturnal symptoms are present Lose weight if indicated; avoid tight-fitting clothing, especially around the waist Avoid foods that relax the Lower esophageal sphincter (chocolate, peppermint, high-fat foods etc.,) Continue omeprazole 20 mg daily at 30 minutes before eating. (9) Headache: Code(s): R51.9 - Headache, unspecified Category: Medical Qualifiers: Headache chronicity pattern: chronic headache Headache type: unspecified Intractability: not intractable Qualified Code(s): R51.9 - Headache, unspecified; G89.29 - Other chronic pain Plan: The patient was taken magnesium oxide 400 mg b.i.d. for headaches and constipation. Encouraged the patient to increase fluids intake. Vitamin B2 400 mg started daily, avoid triggers (10) Vitamin D deficiency: Code(s): E55.9 - Vitamin D deficiency, unspecified Category: Medical Plan: vitamin D 22.6 Start cholecalciferol 50 mcg daily Plan She is establishing care, labs ordered for her to return in 8 weeks for lab review Orders: Orders Comprehensive [place]. Panel Fast Today E78.5 - Hyperlipidemia, unspecified, R74.8 - Abnormal levels of other serum enzymes, Z76.89 - Persons encountering health services in other specified circumstances UA CC w/rflx Micro + Cult Today E78.5 - Hyperlipidemia, unspecified, R74.8 - Abnormal levels of other serum enzymes, Z76.89 - Persons encountering health services in other specified circumstances TSH reflex Free T4 Today E78.5 - Hyperlipidemia, unspecified, R74.8 - Abnormal levels of other serum enzymes, Z76.89 - Persons encountering health services in other specified circumstances Complete Blood Count Auto Diff Today E78.5 - Hyperlipidemia, unspecified, R74.8 - Abnormal levels of other serum enzymes, Z76.89 - Persons encountering health services in other specified circumstances Lipid Panel Today E78.5 - Hyperlipidemia, unspecified, R74.8 - Abnormal levels of other serum enzymes, Z76.89 - Persons encountering health services in other specified circumstances Referrals Ophthalmology Referral H53.9 - Unspecified visual disturbance, Z98.890 - Other specified postprocedural states Medications: New riboflavin (vitamin B2) 400 mg PO DAILY 90 tabs 3RF cholecalciferol (vitamin D3) 50 mcg PO DAILY 90 caps 3RF
--- OUTSIDE RECORDS SUMMARY | 2025-07-05 14:10 | XMS_ITS | Encounter Summary ---
Author Organization [facility] Address [address] [place] [address] Care Team Providers Care Cardiac/Vascular Sonographer Name Role Phone Xiomara Hernandez MD Primary Care Provider [phone] Reason for Referral * Consultation (Routine) - Pending Review Specialty Diagnoses / Procedures Referred By Kamran barajas Referred To Contact Nutrition Diagnoses Prediabetes Xiomara Hernandez MD [address] [place] [address] Phone: tel: fax: Referral ID Status Reason Start Date Expiration Date Visits Requested Visits Authorized [id number] Pending Review Specialty Services Required 4 11/03/2025 1 1 Encounter Details Date Type Department Care Team (Late st Contact Info) Description 11/03/2024 Orders Only [facility] [address] [place] [address] [phone] Xiomara Hernandez MD [address] [place], [place] [phone] Prediabetes (Primary Dx) Social History Tobacco Use [...] as of this encounter Plan of Treatment Scheduled Referrals Name Type Priority Associated Diagnoses Orde r Schedule Referral to Nutrition Therapy Outpatient Referral Routine Prediabetes Expected: 11/03/2024 (Approximate), Expires: 11/03/2025 documented as of this encounter Visit Diagnoses Diagnosis Prediabetes- Primary Other abnormal glucose documented in this encounter Additional Health Concerns Assessment Noted Time PHQ-9 Depression Total Score: 0 12/03/19 2:34 PM EST documented as of this encounter Care Teams Cardiac/Vascular Sonographer Relationship Specialty Start Date End Date Xiomara Hernandez MD [address] [place] [address] PCP - General Family Medicine 05/02/22 documented as of this encounter
--- OUTSIDE RECORDS SUMMARY | 2025-07-05 14:10 | XMS_ITS | Encounter Summary ---
Author Organization [facility] Address [address] [place] [address] Care Team Providers Care Rotary Cutter Feeder Name Role Phone Xiomara Hernandez MD Primary Care Provider [phone] Reason for Visit * Reason Onset Date Comments Med Refill 10/13/2023 Encounter Details Date Type Department Care Team (Late st Contact Info) Description 10/13/2023 Refill [facility] [address] [place] [address] [phone] Xiomara Hernandez MD [address] [place] [address] Social History Tobacco Use Types Packs/Day Years [...] on filedocumented in this encounter Care Teams Rotary Cutter Feeder Relationship Specialty Start Date End Date Xiomara Hernandez MD [address] [place], [place] [phone] PCP - General Family Medicine 05/02/22 documented as of this encounter
--- OUTSIDE RECORDS SUMMARY | 2025-07-05 14:10 | XMS_ITS | Encounter Summary ---
Author Organization [facility] Address [address] [place] [address] [address] Care Team Providers Care Paper Counter Name Role Phone Xiomara Hernandez MD Primary Care Provider [phone] Reason for Referral * Consultation (Routine) - Pending Review Specialty Diagnoses / Procedures Referred By Kamran barajas Referred To Contact Ophthalmology Diagnoses Vision problem Xiomara Hernandez MD [address] [place] [address] Phone: tel: fax: [facility] Referral ID Status Reason Start Date Expiration Date Visits Requested Visits Authorized [id number] Pending Review Specialty Services Required 02/04/2025 02/04/2026 1 1 * Consultation (Routine) - Closed Specialty Diagnoses / Procedures Referred By Kamran barajas Referred To Contact Nutrition Diagnoses Class 2 obesity due to excess calories without serious comorbidity with body mass index (BMI) of 35.0 to 35.9 in adult Vitamin D deficiency Prediabetes Xiomara Hernandez MD [address] [place] [address] Phone: tel: fax: Ambar Ly [address] [place] [address] [address] [place] [address] Phone: tel: Referral ID Status Reason Start Date Expiration Date V isits Requested Visits Authorized [id number] Closed Specialty Services Required 02/04/2025 02/04/2026 1 1 Encounter Details Date Type Department Care Team (Late st Contact Info) Description 02/04/[address] [facility] [address] [place] [address] Xiomara Hernandez MD [address] [place] [address] Class 2 obesity due to excess calories [...] documented as of this encounter Care Teams Paper Counter Relationship Specialty Start Date End Date Xiomara Hernandez MD [address] [place] [address] PCP - General Family Medicine 05/02/22 documented as of this encounter
--- OUTSIDE RECORDS SUMMARY | 2025-07-05 14:10 | XMS_ITS | Encounter Summary ---
Author Organization [employer] Address [address] [place] [address] Care Team Providers Care Licensed Veterinary Technician Name Role Phone Xiomara Hernandez MD Primary Care Provider [phone] Reason for Visit * Reason Onset Date Comments Referral 11/03/2024 Encounter Details Date Type Department Care Team ([facility] st Contact Info) Description 11/03/2024 Telephone [facility] MEDICINE [address] [place], [place] [phone] Xiomara Hernandez MD [address] [place] [address] Referral Social History Tobacco Use Types Packs/Day [...] like a referral placed to Ambar Ly, Examiner Rating Clerk at [facility]. The pt would like this done due to her being diagnosed pre diabetic and would like to have dietary change to help bring down her glucose trends. Pt informed that this information willbe sent to PCP for review. * Telephone Encounter - Keith Davies - 11/03/2024 12:10 PM EST Tc from requesting a referral for a Neuronist at [facility] Dr Nuris Ly. IF any questions contact pt at [phone] documented in this encounter Plan of Treatment Not on file documented as of this encounter Visit Diagnoses Not on filedocumented in this encounter Additional Health Concerns Assessment Noted Time PHQ-9 Depression Total Score: 0 12/03/19 24 2:34 PM EST documented as of this encounter Care Teams Licensed Veterinary Technician Relationship Specialty Start Date End Date Xiomara Hernandez MD [address] [place] [phone] PCP - General Family Medicine 05/02/22 documented as of this encounter
--- OUTSIDE RECORDS SUMMARY | 2025-07-05 14:10 | XMS_ITS | Encounter Summary ---
Author Organization [employer] Address [address] [place] [address] [address], [place] [address] Care Team Providers Care Design Specialist Name Role Phone Xiomara Hernandez MD Primary Care Provider [phone] Encounter Details Date Type Department Care Team (Late st Contact Info) Description 01/13/2025 Orders Only [facility] MEDICINE [address] [place], [place] [phone] Xiomara Hernandez MD [address] [place], [place] [phone] Constipation, unspecified constipation type (Primary Dx); Transaminitis [...] on file documented as of this encounter Procedures Procedure Name Priority Date/Time Associated Diagnosis Comments HELICOBACTER PYLORI AG, EIA, STOOL Routine 01/19/2025 7:00 PM EDT Constipation, unspecified constipation type Transaminitis documented in this encounter Results * (ABNORMAL) Helicobacter pylori??Antigen, EIA, Stool (01/19/2025 7:00 PM EDT) H pylori Ag Stool SEE NOTE(A) [facility] Comment:HELICOBACTER PYLORI AG, EIA, STOOL Micro Number: [id number] Test Status: Final Specimen Source: Stool Specimen Quality: Adequate H.pylori Ag: Detected Reference Range: Not DetectedTHIS TEST WAS PERFORMED AT:[employer] [address] [id number] JAIMES MD Stool Rectal contents / Unknown 01/19/2025 7:00 PM EDT 01/20/2025 10:23 AM EDT us Xiomara Hernandez MD LAB BODY FLUIDS AND STOOLS ORDER LENA Final Result [facility] [address] [place] [phone] documented in this encounter Visit Diagnoses Diagnosis Constipation, unspecified constipation type- Primary Transaminitis Nonspecific elevation of levels of transaminase or lactic acid dehydrogenase (LDH) documented in this encounter Additional Health Concerns Assessment Noted Time PHQ-9 Depression Total Score: 8 01/13/20 25 2:57 PM EST documented as of this encounter Care Teams Design Specialist Relationship Specialty Start Date End Date Xiomara Hernandez MD [address] [place] [address] PCP - General Family Medicine 05/02/22 documented as of this encounter
--- OUTSIDE RECORDS SUMMARY | 2025-07-05 14:10 | XMS_ITS | Encounter Summary ---
Author Organization [employer] Address [address] [facility] [address] [place] [address] Care Team Providers Care Insight Director Name Role Phone Xiomara Hernandez MD Primary Care Provider [phone] Encounter Details Date Type Department Care Team (Late st Contact Info) Description 01/21/2025 Orders Only [facility] MEDICINE 230 [place], [place] [phone] Xiomara Hernandez MD [address] [place], [place] [phone] Social History Tobacco Use Types Packs/Day Years [...] documented as of this encounter Care Teams Insight Director Relationship Specialty Start Date End Date Xiomara Hernandez MD [address] [place] [address] PCP - General Family Medicine 05/02/22 documented as of this encounter
--- OUTSIDE RECORDS SUMMARY | 2025-07-05 14:11 | XMS_ITS | Clinical Summary ---
Author Organization [employer] Address [address] [place] [address] 7 [place] [address] Care Team Providers Care Pick Pulling Machine Operator Name Role Phone Xiomara Hernandez MD Primary Care Provider [phone] Allergies Active Allergy Reactions Criticality Noted Date Comments Povidone Iodine 03/25/2025 Shellfish-Derived Products Cough,Itching,Nausea Only,Swelling 03/25/2025 Other Reaction(s): throat inflamed Medications clotrimazole (Lotrimin) 1 % cream Apply topically 2 times daily. 30 g 5 5 Active omeprazole (PriLOSEC) [address] capsule Take 1 capsule (20 mg) by mouth 2 times daily for 14 days. 28 capsule 5 Active [facility] Stomach Relief 262 MG chewable tablet TAKE 2 TABLETS BY MOUTH 4 TIMES DAILY. 5 Active Active Problems Problem Noted Date Diagnosed [...] 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 - upcoming appointment with CLASSROOM AIDE in February 2025 Heartburn 12/13/2023 Assessment & [...] Plan (01/12/2025 1:13 PM EST): Previously seeing [facility] neurology, referred back in Jun 2022. Pt will call to schedule appt. Continue (resume) Magnesium oxide. Assessment & Plan (12/13/2023 6:34 AM EST): Previously seeing [facility] neurology, referred back in Jun 2022. Pt will call to schedule appt. Continue (resume) Magnesium oxide. Assessment & Plan (10/25/2022 12:17 PM EST): Previously seeing [facility] neurology, referred back in Jun 2022. Pt will call to schedule appt. Resume Magnesium oxide. Mild intermittent asthma 08/06/2018 [...] EST): - continue working on lifestyle modifications Immunizations Immunization Administration Dates Next Due Influenza Injectable Quadriv [...] 49 01/12/2025 2:18 PM EST Temperature 36.3 C (97.3 F) 01/12/2025 2:18 PM EST Respiratory Rate 15 01/12/2025 2:18 PM EST Oxygen Saturation 98% 01/12/2025 2:18 PM EST Inhaled Oxygen Concentration - - Weight 99.9 kg (220 lb 3.2 oz) 01/28/2025 11:50 AM EDT Height 165.3 cm (5' 5.09 ) 01/28/2025 11:50 AM E DT Body Mass Index 36.54 01/28/2025 11:50 AM EDT Plan of Treatment Health Maintenance Due Date Last Done Comments Disability Screening 1990 Family Planning (PISQ) 2003 HPV Vaccines (1 - 3-dose series) 2003 Pneumococcal Vaccine: Pediatrics (0 to 5 Years) and At-Risk Patients (6 to 49) Years (1 of 2 - PCV) 2007 COVID-19 Vaccine ( - season) 2024 03/27/2021, 03/06/2021 DTaP/Tdap/Td Vaccines (2 - Td or Tdap) 05/31/2025 05/31/2015 Influenza Vaccine (#1) 2025 , 07/26/2022, 08/17/2020, Additional history exists Alcohol/Substance Use Screening 10/15/2025 10/15/2024 SDOH Screening 01/05/2026 01/05/2025 Depression Screening 01/12/2026 01/12/2025, 01/13/20 Diabetes: Hemoglobin A1C 01/12/2026 025, 10/15/2024, 04/23/2024, Additional history exists Cervical Cancer Screening 03/03/2026 HPV/Cotest 03/03/2026 Pap Smear 03/03/2026 10/15/2024, 08/11, 08/23/2022 Tobacco Screening 03/25/2026 03/25/2025 Lipid Panel 01/12/2030 01/12/2025, 04/11, 07/12/2022 Zoster Vaccines (1 of 2) 2038 RSV Patients and Patients Aged 60 years or older (1 - 1-dose 75+ series) 2063 HIV Screening Completed 01/12/2025, 07/12/2022 Hepatitis C Screening Completed 01/12/2025, 022 Colposcopy Discontinued 03/03/2025 HIB Vaccines Aged Out No longer eligi ble based on patient's age to complete this topic Hepatitis A Vaccines Aged Out No long er eligible based on patient's age to complete this topic Hepatitis B Vaccines Discontinued IPV Vaccines Aged Out No longer eligi ble based on patient's age to complete this topic Meningococcal B Vaccine Aged Out No l onger eligible based on patient's age to complete [...] Procedure Name Priority Date/Time Associated Diagnosis Comments COLPOSCOPY Routine 03/03/2025 8:46 AM EDT HEPATITIS C AB W/REFL TO HCV RNA, QN, PCR Routine 01/12/2025 2:49 PM EST Routine screening for STI (sexually transmitted infection) HIV 1/2 ANTIGEN/ANTIBODY, FOURTH GENERATION W/RFL Routine 01/12/2025 2:49 PM EST Routine screening for STI (sexually transmitted infection) HEMOGLOBIN A1C Routine 01/12/2025 2:49 PM EST Fatigue, unspecified type LIPID PANEL WITH REFLEX TO DIRECT LDL Routine 01/12/2025 2:49 PM EST Fatigue, unspecified type PAP SMEAR Routine 10/15/2024 11:42 AM EST History of cervical dysplasia from Last 3 Months or Most Recently Relevant to Health Maintenance Results * Colposcopy (03/03/2025 8:46 AM EDT) us Historical Provider MD IN CLINIC/BEDSIDE ORDERAB LES Final Result * (ABNORMAL) Lipid Panel with Reflex to Direct LDL (01/12/2025 2:49 PM EST) Triglycerides 135 <150 mg/dL [facility] Comment:Desirable Triglyceri de: less than 150 mg/dLBorderline High Triglyceride 150-199 mg/dLHigh Triglyceride: 200-499 mg/dLVery High Triglyceride: greater than or equal to 5OO mg/dL Cholesterol 202(H) <200 mg/dL [facility] Comment:Desirable Cholestero l: less than 200 mg/dLBorderline High Cholesterol: 200-239 mg/dLHigh Cholesterol: greater than 239 mg/dL LDL Cholesterol Calculated 128(H) <100 mg/dL [facility] Comment:Desirable LDL: less than 100 mg/dLNear Optimal/Above Optimal LDL: 110- 129 mg/dLBorderline High LDL: 130-159 mg/dLHigh LDL: 160-189 mg/dLVery High LDL: greater than or equal to 190 mg/dL HDL Cholesterol 47 >40 mg/dL [facility] Comment:Desirable HDL: great er than 40 mg/dL Note: This HDL assay may give artificially low results in patients with liver disease. Blood 01/12/2025 2:49 PM EST 01/12/2025 4:06 PM EST Xiomara Hernandez MD LAB BLOOD ORDERABLES Final Resul t Performing Organization Address [facility] Co de Phone Number [facility] [address] [place] [phone] * Hepatitis C Antibody with Reflex to HCV, RNA, Quantitative, Real-Time PCR (01/12/2025 2:49 PM EST) Hepatitis C Antibody Nonreactive Nonreactive [facility] Comment:Antibodies to HCV no t detected; does not exclude early acuteHCV infection. Blood Venous blood specimen / Unknown 01/12/2025 2:49 PM EST 01/12/2025 4:06 PM EST Xiomara Hernandez MD LAB BLOOD ORDERABLES Final Resul t Performing Organization Address [facility] Co de Phone Number [facility] [address] [place] [phone] * HIV-1/2 Antigen and Antibodies, Fourth Generation, with Reflexes (01/12/2025 2:49 PM EST) HIV AB/AG Nonreactive Nonreactive [facility] Comment:HIV-1 p24 Ag and/or HIV-1/HIV-2 Ab not detected.A test result that is nonreactive does not exclude thepossibility of exposure to or infection with HIV-1 and/orHIV-2. Nonreactive results in this assay for individualswith prior exposure to HIV-1 and/or HIV-2 may be due toantigen and antibody levels that are below the limit ofdetection of this assay.The [facility] [employer] HIV Ag/Ab Combo assay result andsupplemental assay results should be interpreted inconjunction with the patient's clinical presentation,history and other laboratory results. If the results areinconsistent with clinical evidence, additional testing issuggested to confirm the result. Blood Venous blood specimen / Unknown 01/12/2025 2:49 PM EST 01/12/2025 4:06 PM EST Xiomara Hernandez MD LAB BLOOD ORDERABLES Final Resul t Performing Organization Address [facility] de Phone Number [facility] [address] [place] [phone] * Hemoglobin A1c (01/12/2025 2:49 PM EST) Hemoglobin A1c 5.7 <6.0 % [facility] Comment:Hemoglobin A1C Refer ence Range Adults: 4.8 - 6.0 % Non diabetic: < 6.0 % Goal: < 7.0 %Additional Action Suggested: > 8.0 %Note: Hemoglobin A1c results are invalid for patients with abnormal amounts of HbF. Blood transfusions may impact the HbA1c concentration in the patient sample. Estimated Average Glucose 117 mg/dL [facility] Comment:eAG = Estimated ave rage glucose which is %A1C expressed asaverage glucose, using the formula of the J9M-MusjuihDhdmkph Glucose study (ADAG), Diabetes Care, Vol.31,#8,Jun. 2007 Blood Venous blood specimen / Unknown 01/12/2025 2:49 PM EST 01/12/2025 4:06 PM EST Xiomara Hernandez MD LAB BLOOD ORDERABLES Final Resul t Performing Organization Address [facility] Co de Phone Number [facility] [address] [place] [phone] * Pap Smear (10/15/2024 11:42 AM EST) Swab Vaginal structure / Unknown 10/15/2024 11:42 AM EST 10/16/2024 10:00 AM EST Narrative [facility] - 10/21/2024 4:12 PM EST ----- ------- Name: Marianela Bunch Age/Sex: 34/F : 1990 Unit#: [id number] Attend Dr: SHANNAN MAURICIO Brandon Re10/15/24 Status: DEP REF Location: [facility] Disch: ----- ------- SPEC : [id number] RECD: 10/16/24-1000 STATUS: LISA FLOYD NUM: [id number] DOM: 10/15/24-[address] [facility] [address]: SHANNAN MAURICIO ENTERED: 10/16/24-1014 SP TYPE: Pap Smr OTHR DR: ORDERED: Pap Smear, PAP path review Interpretation General Category: Epithelial cell abnormality. Adequacy: Satisfactory for evaluation. Interpretation: Atypical squamous cells of undetermined significance. Fungal organisms consistent with Camilla species. HPV High Risk: Positive HPV Genotyping 16: Negative HPV Genotyping 18: Negative Clinical Information LMP: Hysterectomy Previous PAP test: Unknown date, hx AARON 3, s/p hyst Other history: History of cervical dysplasia Material Received ThinPrep-Vaginal ----- ------- Signed (signature on file) Siria Ocklawaha 10/21/24 1612 ----- ------- END OF REPORT Shannan Mauricio [facility] LAB CYTOLOGY ORDERABLES F inal Result [facility] [address] [place] [phone] [phone] from Last 3 Months or Most Recently Relevant to Health Maintenance Insurance [employer] Care Teams Pick Pulling Machine Operator Relationship Specialty Start Date End Date Xiomara Hernandez MD [address] [place] [address] PCP - General Family Medicine 05/02/22
--- OUTSIDE RECORDS SUMMARY | 2025-07-05 14:11 | XMS_ITS | Encounter Summary ---
Author Organization [employer] Address [address] [facility] [address] [place] [address] Care Team Providers Care Identity Management Developer Name Role Phone Xiomara Hernandez MD Primary Care Provider [phone] Encounter Details Date Type Department Care Team ([facility] st Contact Info) Description 03/08/2025 Orders Only [facility] [address] [place] [address] ProviderSebastian MD Social History Tobacco Use Types Packs/Day Years [...] as of this encounter Miscellaneous Notes * Result Encounter Note - Shannan Choudhury CNM - 03/08/2025 8:46 AM EDT Jose -I updated plan for Marianela and sent her a [employer] message - let me know if you have questions. * Result Encounter Note - Shannan Choudhury CNM - 03/08/2025 8:46 AM EDT Yes please! documented in this encounter Plan of Treatment Not on file documented as of this encounter Procedures Procedure Name Priority Date/Time Associated Diagnosis Comments COLPOSCOPY Routine 03/03/2025 8:46 AM EDT documented in this encounter Results * Colposcopy (03/03/2025 8:46 AM EDT) us Historical Provider IN CLINIC/BEDSIDE ORDERAB LES Final Result documented in this encounter Visit Diagnoses Not on filedocumented in this encounter Additional Health Concerns Assessment Noted Time PHQ-9 Depression Total Score: 8 01/13/20 25 2:57 PM EST documented as of this encounter Care Teams Identity Management Developer Relationship Specialty Start Date End Date Xiomara Hernandez MD [address] [place] [address] [phone] PCP - General Family Medicine 05/02/22 documented as of this encounter
--- OUTSIDE RECORDS SUMMARY | 2025-07-05 14:11 | XMS_ITS | Encounter Summary ---
Author Organization [employer] Address [address] [place] [address] Care Team Providers Care Adzing And Boring Machine Feeder Name Role Phone Xiomara Hernandez MD Primary Care Provider [phone] Encounter Details Date Type Department Care Team (Late st Contact Info) Description 06/07/2023 Abstract [facility] MEDICINE [address] [place], [place] [phone] Xiomara Hernandez MD [address] [place] [address] Social History Tobacco Use Types Packs/Day Years [...] on filedocumented in this encounter Care Teams Adzing And Boring Machine Feeder Relationship Specialty Start Date End Date Xiomara Hernandez MD [address] [place], [place] [phone] PCP - General Family Medicine 05/02/22 documented as of this encounter
== END 2025-07-05 14:01 | disposition home or self-care (01) ==
LOC: HO.HMCH 12:59
DX: E78.5 Hyperlipidemia, unspecified (principal); E66.9 Obesity, unspecified; Z68.36 Body mass index [BMI] 36.0-36.9, adult; R74.8 Abnormal levels of other serum enzymes; Z98.890 Other specified postprocedural states; H53.9 Unspecified visual disturbance; K59.00 Constipation, unspecified; H61.23 Impacted cerumen, bilateral; R12 Heartburn; R51.9 Headache, unspecified; G89.29 Other chronic pain; E55.9 Vitamin D deficiency, unspecified

== ENCOUNTER 2025-07-23 07:53 | Outpatient (REF) | payer OTHER, SELFPAY ==
--- OUTSIDE RECORDS SUMMARY | 2025-07-23 07:56 | XMS_ITS | Encounter Summary ---
Author Organization [employer] Address [address] [place] [address] [address], [place] [address] Care Team Providers Care Freezer Unloader Name Role Phone Xiomara Hernandez MD Primary Care Provider [phone] Reason for Referral * Consultation (Routine) - Pending Review Specialty Diagnoses / Procedures Referred By Kamran barajas Referred To Contact Ophthalmology Diagnoses Vision problem Xiomara Hernandez MD [address] [place] [address] Phone: tel: fax: [facility] Referral ID Status Reason Start Date Expiration Date Visits Requested Visits Authorized [id number] Pending Review Specialty Services Required 02/04/2025 02/04/2026 1 1 * Consultation (Routine) - Closed Specialty Diagnoses / Procedures Referred By Kamran barajas Referred To Contact Nutrition Diagnoses Class 2 obesity due to excess calories without serious comorbidity with body mass index (BMI) of 35.0 to 35.9 in adult Vitamin D deficiency Prediabetes Xiomara Hernandez MD [address] [place] [address] Phone: tel: fax: Ambar Ly [address] [place] [address] [address] [place] [address] Phone: tel: Referral ID Status Reason Start Date Expiration Date V isits Requested Visits Authorized [id number] Closed Specialty Services Required 02/04/2025 02/04/2026 1 1 Encounter Details Date Type Department Care Team (Late st Contact Info) Description 02/04/2025 Orders Only [facility] MEDICINE [address] [place] [address] Xiomara Hernandez MD [address] [place] [address] Class 2 obesity due to excess calories [...] documented as of this encounter Care Teams Freezer Unloader Relationship Specialty Start Date End Date Xiomara Hernandez MD [address] [place] [address] PCP - General Family Medicine 05/02/22 documented as of this encounter
--- OUTSIDE RECORDS SUMMARY | 2025-07-23 07:56 | XMS_ITS | Encounter Summary ---
Author Organization [employer] Address [address] [place] [address] Care Team Providers Care Sweatband Shaper Name Role Phone Xiomara Hernandez MD Primary Care Provider [phone] Reason for Visit * Reason Onset Date Comments Referral 11/03/2024 Encounter Details Date Type Department Care Team ([facility] st Contact Info) Description 11/03/2024 Telephone [facility] MEDICINE [address] [place], [place] [phone] Xiomara Hernandez MD [address] [place] [address] Referral Social History Tobacco Use Types Packs/Day [...] like a referral placed to Ambar Ly, Principal Planner at [facility]. The pt would like this done due to her being diagnosed pre diabetic and would like to have dietary change to help bring down her glucose trends. Pt informed that this information willbe sent to PCP for review. * Telephone Encounter - Keith Davies - 11/03/2024 12:10 PM EST Tc from requesting a referral for a Neuronist at [facility] Dr Nuris Ly. IF any questions contact pt at [phone] documented in this encounter Plan of Treatment Not on file documented as of this encounter Visit Diagnoses Not on filedocumented in this encounter Additional Health Concerns Assessment Noted Time PHQ-9 Depression Total Score: 0 12/03/19 24 2:34 PM EST documented as of this encounter Care Teams Sweatband Shaper Relationship Specialty Start Date End Date Xiomara Hernandez MD [address] [place] [address] PCP - General Family Medicine 05/02/22 documented as of this encounter
--- OUTSIDE RECORDS SUMMARY | 2025-07-23 07:56 | XMS_ITS | Encounter Summary ---
Author Organization [employer] Address [address] [facility] [address] [place] [address] Care Team Providers Care Magnetic Prospecting Supervisor Name Role Phone Xiomara Hernandez MD Primary Care Provider [phone] Encounter Details Date Type Department Care Team ([facility] st Contact Info) Description 01/21/2025 Orders Only [facility] MEDICINE [address] [place], [place] [phone] Xiomara Hernandez MD [address] [place], [place] [phone] Social History Tobacco Use Types Packs/Day Years [...] documented as of this encounter Care Teams Magnetic Prospecting Supervisor Relationship Specialty Start Date End Date Xiomara Hernandez MD [address] [place] [address] PCP - General Family Medicine 05/02/22 documented as of this encounter
--- OUTSIDE RECORDS SUMMARY | 2025-07-23 07:56 | XMS_ITS | Encounter Summary ---
Author Organization [employer] Address [address] [place] [address] [address] Care Team Providers Care Sales Utility Representative Name Role Phone Xiomara Hernandez MD Primary Care Provider [phone] Encounter Details Date Type Department Care Team (Late st Contact Info) Description 01/13/2025 Orders Only [facility] MEDICINE [address] [place], [place] [phone] Xiomara Hernandez MD [address] [place], [place] [phone] Constipation, unspecified constipation type (Primary Dx); Transaminitis [...] EDT) H pylori Ag Stool SEE NOTE(A) [facility] Comment:HELICOBACTER PYLORI AG, EIA, STOOL Micro Number: [id number] Test Status: Final Specimen Source: Stool Specimen Quality: Adequate H.pylori Ag: Detected Reference Range: Not DetectedTHIS TEST WAS PERFORMED AT:[employer] [address] [id number] JAIMES MD Stool Rectal contents / Unknown 01/19/2025 7:00 PM EDT 01/20/2025 10:23 AM EDT us Xiomara Hernandez MD LAB BODY FLUIDS AND STOOLS ORDER LENA Final Result [facility] [address] [place] [phone] documented in this encounter Visit Diagnoses Diagnosis Constipation, unspecified constipation type- Primary Transaminitis Nonspecific elevation of levels of transaminase or lactic acid dehydrogenase (LDH) documented in this encounter Additional Health Concerns Assessment Noted Time PHQ-9 Depression Total Score: 8 01/13/20 25 2:57 PM EST documented as of this encounter Care Teams Sales Utility Representative Relationship Specialty Start Date End Date Xiomara Hernandez MD [address] [place] [address] PCP - General Family Medicine 05/02/22 documented as of this encounter
--- OUTSIDE RECORDS SUMMARY | 2025-07-23 07:56 | XMS_ITS | Encounter Summary ---
Author Organization [employer] Address [address] [place] [address] Care Team Providers Care Stacking Machine Operator Name Role Phone Xiomara Hernandez MD Primary Care Provider [phone] Reason for Referral * Consultation (Routine) - Pending Review Specialty Diagnoses / Procedures Referred By Kamran barajas Referred To Contact Nutrition Diagnoses Prediabetes Xiomara Hernandez MD [address] [place] [phone] Phone: tel: fax: Referral ID Status Reason Start Date Expiration Date Visits Requested Visits Authorized [id number] Pending Review Specialty Services Required 4 11/03/2025 1 1 Encounter Details Date Type Department Care Team (Late st Contact Info) Description 11/03/2024 Orders Only [facility] MEDICINE [address] [place], [place] [phone] Xiomara Hernandez MD [address] [place], [place] [phone] Prediabetes (Primary Dx) Social History Tobacco Use [...] documented as of this encounter Care Teams Stacking Machine Operator Relationship Specialty Start Date End Date Xiomara Hernandez MD [address] [place] [address] PCP - General Family Medicine 05/02/22 documented as of this encounter
--- OUTSIDE RECORDS SUMMARY | 2025-07-23 07:56 | XMS_ITS | Encounter Summary ---
Author Organization [employer] Address [address] [place] [address] Care Team Providers Care Station Attendant Name Role Phone Xiomara Hernandez MD Primary Care Provider [phone] Reason for Visit * Reason Onset Date Comments Med Refill 10/13/2023 Encounter Details Date Type Department Care Team (Late st Contact Info) Description 10/13/2023 Refill [facility] MEDICINE [address] [place] [address] [phone] Xiomara Hernandez MD [address] [place] [address] Social History Tobacco Use Types Packs/Day Years [...] on filedocumented in this encounter Care Teams Station Attendant Relationship Specialty Start Date End Date Xiomara Hernandez MD [address] [place], [place] [phone] PCP - General Family Medicine 05/02/22 documented as of this encounter
--- OUTSIDE RECORDS SUMMARY | 2025-07-23 07:56 | XMS_ITS | Encounter Summary ---
Author Organization [employer] Address [address] [place] [address] Care Team Providers Care Public Health Doctor Name Role Phone Xiomara Hernandez MD Primary Care Provider [phone] Encounter Details Date Type Department Care Team (Late st Contact Info) Description 06/07/2023 Abstract [facility] MEDICINE [address] [place], [place] [phone] Xiomara Hernandez MD [address] [place] [address] Social History Tobacco Use Types Packs/Day Years [...] on filedocumented in this encounter Care Teams Public Health Doctor Relationship Specialty Start Date End Date Xiomara Hernandez MD [address] [place], [place] [phone] PCP - General Family Medicine 05/02/22 documented as of this encounter
--- OUTSIDE RECORDS SUMMARY | 2025-07-23 07:56 | XMS_ITS | Encounter Summary ---
Author Organization [employer] Address [address] [facility] [address] [place] [address] Care Team Providers Care Rough Carpenter Name Role Phone Xiomara Hernandez MD Primary Care Provider [phone] Encounter Details Date Type Department Care Team ([facility] st Contact Info) Description 03/08/2025 Orders Only [facility] MED & PEDS [address] [place] [address] ProviderSebastian MD Social History Tobacco Use Types [...] plan for Marianela and sent her a [employer] message - let me know if you [...] documented as of this encounter Care Teams Rough Carpenter Relationship Specialty Start Date End Date Xiomara Hernandez MD [address] [place] [address] [phone] PCP - General Family Medicine 05/02/22 documented as of this encounter
--- OUTSIDE RECORDS SUMMARY | 2025-07-23 07:57 | XMS_ITS | Clinical Summary ---
Author Organization [employer] Address [address] [place] [address] 7 [place] [address] Care Team Providers Care Computer Network And Systems Engineer Name Role Phone Xiomara Hernandez MD Primary Care Provider [phone] Allergies Active Allergy Reactions Criticality Noted Date [...] 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 - upcoming appointment with [facility] in February 2025 Heartburn 12/13/2023 Assessment & [...] Plan (01/12/2025 1:13 PM EST): Previously seeing [facility] neurology, referred back in Jun 2022. Pt will call to schedule appt. Continue (resume) Magnesium oxide. Assessment & Plan (12/13/2023 6:34 AM EST): Previously seeing [facility] neurology, referred back in Jun 2022. Pt will call to schedule appt. Continue (resume) Magnesium oxide. Assessment & Plan (10/25/2022 12:17 PM EST): Previously seeing [facility] neurology, referred back in Jun [...] Years (1 of 2 - PCV) 2007 DTaP/Tdap/Td Vaccines (2 - Td or Tdap) 05/31/2025 05/31/2015 COVID-19 Vaccine ( - season) 2025 03/27/2021, 03/06/2021 Influenza Vaccine (#1) 2025 , 07/26/2022, 08/17/2020, [...] PM EST) Triglycerides 135 <150 mg/dL [facility] Comment:Desirable Triglyceri de: less than 150 mg/dLBorderline High Triglyceride 150-199 mg/dLHigh Triglyceride: 200-499 mg/dLVery High Triglyceride: greater than or equal to 5OO mg/dL Cholesterol 202(H) <200 mg/dL [facility] Comment:Desirable Cholestero l: less than 200 mg/dLBorderline High Cholesterol: 200-239 mg/dLHigh Cholesterol: greater than 239 mg/dL LDL Cholesterol Calculated 128(H) <100 mg/dL [facility] Comment:Desirable LDL: less than 100 mg/dLNear Optimal/Above Optimal LDL: 110- 129 mg/dLBorderline High LDL: 130-159 mg/dLHigh LDL: 160-189 mg/dLVery High LDL: greater than or equal to 190 mg/dL HDL Cholesterol 47 >40 mg/dL [facility] Comment:Desirable HDL: great er than 40 mg/dL Note: This HDL assay may give artificially low results in patients with liver disease. Blood 01/12/2025 2:49 PM EST 01/12/2025 4:06 PM EST Xiomara Hernandez MD LAB BLOOD ORDERABLES Final Resul t Performing Organization Address [facility] Co de Phone Number [facility] [address] [place] [phone] * Hepatitis C Antibody with Reflex to HCV, RNA, Quantitative, Real-Time PCR (01/12/2025 2:49 PM EST) Hepatitis C Antibody Nonreactive Nonreactive [facility] Comment:Antibodies to HCV no t detected; does not exclude early acuteHCV infection. Blood Venous blood specimen / Unknown 01/12/2025 2:49 PM EST 01/12/2025 4:06 PM EST Xiomara Hernandez MD LAB BLOOD ORDERABLES Final Resul t Performing Organization Address [facility] Co de Phone Number [facility] [address] [place] [phone] * HIV-1/2 Antigen and Antibodies, Fourth Generation, with Reflexes (01/12/2025 2:49 PM EST) HIV AB/AG Nonreactive Nonreactive [facility] Comment:HIV-1 p24 Ag and/or HIV-1/HIV-2 Ab not detected.A test result that is nonreactive does not exclude thepossibility of exposure to or infection with HIV-1 and/orHIV-2. Nonreactive results in this assay for individualswith prior exposure to HIV-1 and/or HIV-2 may be due toantigen and antibody levels that are below the limit ofdetection of this assay.The [employer] HIV Ag/Ab Combo assay result andsupplemental assay results should be interpreted inconjunction with the patient's clinical presentation,history and other laboratory results. If the results areinconsistent with clinical evidence, additional testing issuggested to confirm the result. Blood Venous blood specimen / Unknown 01/12/2025 2:49 PM EST 01/12/2025 4:06 PM EST Xiomara Hernandez MD LAB BLOOD ORDERABLES Final Resul t Performing Organization Address [facility] de Phone Number [facility] [address] [place] [phone] * Hemoglobin A1c (01/12/2025 2:49 PM EST) Hemoglobin A1c 5.7 <6.0 % [facility] Comment:Hemoglobin A1C Refer ence Range Adults: 4.8 - 6.0 % Non diabetic: < 6.0 % Goal: < 7.0 %Additional Action Suggested: > 8.0 %Note: Hemoglobin A1c results are invalid for patients with abnormal amounts of HbF. Blood transfusions may impact the HbA1c concentration in the patient sample. Estimated Average Glucose 117 mg/dL [facility] Comment:eAG = Estimated ave rage glucose which is %A1C expressed asaverage glucose, using the formula of the P7Y-HjswuosLtleezc Glucose study (ADAG), Diabetes Care, Vol.31,#8,Jun. 2007 Blood Venous blood specimen / Unknown 01/12/2025 2:49 PM EST 01/12/2025 4:06 PM EST Xiomara Hernandez MD LAB BLOOD ORDERABLES Final Resul t Performing Organization Address [facility] Co de Phone Number [facility] [address] [place] [phone] * Pap Smear (10/15/2024 11:42 AM EST) Swab Vaginal structure / Unknown 10/15/2024 11:42 AM EST 10/16/2024 10:00 AM EST Narrative [facility] - 10/21/2024 4:12 PM EST ----- ------- Name: Marianela Bunch Age/Sex: 34/F : 1990 Unit#: [id number] Attend Dr: SHANNAN MAURICIO Brandon Re10/15/24 Status: DEP REF Location: [facility] Disch: ----- ------- SPEC : [id number] RECD: 10/16/24-1000 STATUS: LISA FLOYD NUM: [id number] DOM: 10/15/24-1142 [facility] DR: SHANNAN MAURICIO ENTERED: 10/16/24-1014 SP TYPE: [...] ----- ------- Signed (signature on file) Siria Romeo 10/21/24 1612 ----- ------- END OF REPORT Shannan Mauricio [facility] CYTOLOGY ORDERABLES F inal Result [facility] [address] [place] [address] [phone] from Last 3 Months or Most Recently Relevant to Health Maintenance Insurance [employer] Care Teams Computer Network And Systems Engineer Relationship Specialty Start Date End Date Xiomara Hernandez MD [address] [place] [address] PCP - General Family Medicine 05/02/22
[2025-07-23 10:18] LABS: MANUAL DIFF FLAG NO
[2025-07-23 10:20] LABS: Hematocrit 38.2 % (37.0-47.0); Hemoglobin 12.5 g/dl (12.0-16.0); Imm Gran Abs Auto 0.01 X10*3/uL (0.00-0.03); Imm Gran Pct Auto 0.2 % (0.0-0.4); Lymphocytes Absolute Auto 2.4 X10*3/uL (1.2-4.9); Mean Corpuscular HGB Conc 32.7 g/dl (31.0-35.0); Mean Corpuscular Hemoglobin 28.4 pg (27.0-33.0); Mean Corpuscular Volume 86.8 fL (80.0-98.0); NRBC Abs Auto 0.000 X10*3/uL (0.0-0.012); NRBC Pct Auto 0.0 /100WBC (0.0-0.2); Platelet Count 327 X10*3/uL (160-400); Red Blood Count 4.40 X10*6/uL (4.20-5.50); White Blood Count 5.7 X10*3/uL (4.8-10.8)
[2025-07-23 10:41] LABS: Alanine Aminotransferase 33 U/L (0-31); Albumin Level 4.5 g/dL (3.5-5.0); Alkaline Phosphatase 46 U/L (39-117); Anion Gap 11 (12-20); Aspartate Amino Transferase 23 U/L (5-31); Blood Urea Nitrogen 15 mg/dL (9-16); Calcium 9.0 mg/dL (8.4-10.2); Carbon Dioxide 26 mmol/L (22-29); Chloride 104 mmol/L (96-108); Cholesterol 186 mg/dL (<200); Estimated Glomerular Filt Rate > 60; HDL Cholesterol 44 mg/dL (>40); Potassium 4.1 mmol/L (3.3-5.1); Sodium 137 mmol/L (135-145); Total Protein 7.7 g/dL (6.5-8.0); Triglycerides 119 mg/dL (<150)
[2025-07-23 10:52] LABS: Appearance Urine Clear; Glucose Urine UA Negative (Negative); PH 5.0 (5.0-9.0); Specific Gravity - Urine 1.025 (1.005-1.025)
== END 2025-07-23 07:54 | disposition home or self-care (01) ==
LOC: HO.10HDL 07:53
DX: R74.8 Abnormal levels of other serum enzymes (principal); E78.5 Hyperlipidemia, unspecified; Z76.89 Persons encountering health services in other specified circumstances
CPT/HCPCS: 36415; 80053; 80061; 81003; 84443; 85025

== ENCOUNTER → 2025-09-07 12:18 | Outpatient (BNVA) | payer OTHER, SELFPAY | PROVIDERS: Visit Provider Dietitian, Registered | DX: E66.9 Obesity, unspecified (principal); Z68.36 Body mass index [BMI] 36.0-36.9, adult | CPT/HCPCS: 97803 ==

== ENCOUNTER → 2025-09-07 12:18 | Outpatient (AMB) | payer OTHER, SELFPAY ==
[2025-09-07 12:30] VITALS: BMI 36.3
--- NOTE | 2025-09-07 12:30 | A.OFFVIS_ITS ---
VS Expanded 09/07/25 12:30 Height 5 ft 6 in Weight 224 lb 10.417 oz BMI 36.3 Intake Visit Reasons: Pre DM, obesity Allergies shellfish derived Allergy (Severe, Verified 07/05/25 13:15) Anaphylaxis Nutrition Presentation Details: PT presents for MNT f/u for obesity Pt reports doing well initially, and wound on vacation, and recently has noticed increased appetite particularly in at night B:coffee stevia/monk /3 eggs omelette/sand L: May skip D: rice/chicken/beans, Snack: Greater than 200 calories 40 oz of water, BS Monitoring Most Recent Diabetes Results: Cholesterol, (<200) 186 mg/dL 07/23/25 HDL Cholesterol, (>40) 44 mg/dL 07/23/25 Triglycerides, (<150) 119 mg/dL 07/23/25 Creatinine, (0.5-1.4) 0.95 mg/dL 07/23/25 BUN, (9-16) 15 mg/dL 07/23/25 Sodium, (135-145) 137 mmol/L 07/23/25 Potassium, (3.3-5.1) 4.1 mmol/L 07/23/25 Chloride, (96-108) 104 mmol/L 07/23/25 Carbon Dioxide, (22-29) 26 mmol/L 07/23/25 Calcium, (8.4-10.2) 9.0 mg/dL Δ 07/23/25 AST, (5-31) 23 U/L 07/23/25 ALT, (0-31) 33 U/L H 07/23/25 Total Protein, (6.5-8.0) 7.7 g/dL 07/23/25 Albumin, (3.5-5.0) 4.5 g/dL 07/23/25 PFSH Medical History Constipation Heartburn Headache AARON 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 Surgical History (Updated 07/05/25 @ 14:00 by KRISTAL Piedra) Hx of eye surgery History of partial hysterectomy Family History (Updated 07/05/25 @ 14:48 by KRISTAL Piedra) Mother HTN (hypertension) Father Diabetes Cirrhosis Liver cancer Sister Stroke Maternal Aunt Breast cancer Social History Household Members: Spouse and Children Housing: House Alcohol intake: former Patient Tobacco Use Status: Former Tobacco user Years Smoked: 5 Current occupational status: employed 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 [place] Sexual orientation: Straight/Heterosexual Gender identity: Female Assessment & Plan Assessment & Plan (1) Obesity (BMI 30-39.9): Code(s): E66.9 - Obesity, unspecified Category: Medical Plan: Wt: 100 Kg ( 06/04 ), 102 kg (09/04) Est kcal needs as per MSJ: 2000 (40% carb, 30% protein/fat) Est fluid needs as per 25-30 ml/d: 3000 Est prot per day as per 1 g/kg bw: 100 Recommend fiber intake : 8-10 g per day and gradually increase to 25-28 g per day for women and 35-38 g for men or as tolerated Recommend sodium intake per day : less than 2300 mg Educated patient on: ( R = reviewed V = verbalizes understanding N/R = needs review N/A = not applicable * Food sources of carbohydrate, adequate serving sizes and its role in various health conditions: R * Differences between complex carbohydrates a simple carbohydrates, role of fiber in diet: R * Lean protein sources of foods: R * Differences between types of fats and role in diet (mono on saturated fat fatty acids, saturated fatty acids, trans fats): R V N/R * Food sources of sodium in salt and healthy modifications for heart health in kidney health: R V R/V * Vitamins and minerals: R V N/R * Healthy plate method concept: R * Physical activity: Benefits a precaution: R V * Patient Instructions: Have a meal replacement at lunch instead of skipping Choose a bedtime snack consisting of less than 150 calorie, read food labels Coding Level of Care Code Nutr Indiv Subseq (42326) Diagnoses Obesity (BMI 30-39.9) E66.9 Time Spent (min) 30
--- OUTSIDE RECORDS SUMMARY | 2025-09-07 15:34 | XMS_ITS | Encounter Summary ---
Author Organization [employer] Address [address] [place] [address] Care Team Providers Care Mems Process Engineer Name Role Phone Xiomara Hernandez MD Primary Care Provider [phone] Encounter Details Date Type Department Care Team (Late st Contact Info) Description 06/07/2023 Abstract [facility] MEDICINE [address] [place], [place] [phone] Xiomara Hernandez MD [address] [place] [address] Social History Tobacco Use Types Packs/Day Years [...] on filedocumented in this encounter Care Teams Mems Process Engineer Relationship Specialty Start Date End Date Xiomara Hernandez MD [address] [place], [place] [phone] PCP - General Family Medicine 05/02/22 documented as of this encounter
--- OUTSIDE RECORDS SUMMARY | 2025-09-07 15:34 | XMS_ITS | Encounter Summary ---
Author Organization [employer] Address [address] [facility] 7 [place] [address] Care Team Providers Care Bobbin Hauler Name Role Phone Xiomara Hernandez MD Primary Care Provider [phone] Encounter Details Date Type Department Care Team ([facility] st Contact Info) Description 03/08/2025 Orders Only [facility] MED & PEDS [address] [place] [address] ProviderSebastian MD Social History Tobacco Use Types [...] plan for Marianela and sent her a [employer] message - let me know if you [...] documented as of this encounter Care Teams Bobbin Hauler Relationship Specialty Start Date End Date Xiomara Hernandez MD [address] [place] [address] [phone] PCP - General Family Medicine 05/02/22 documented as of this encounter
--- OUTSIDE RECORDS SUMMARY | 2025-09-07 15:34 | XMS_ITS | Clinical Summary ---
Author Organization [employer] Address [address] [place] [address] 7 [place] [address] Care Team Providers Care Rug Underlay Machine Operator Name Role Phone Xiomara Hernandez MD Primary Care Provider Allergies Active Allergy Reactions Criticality Noted Date Comments Povidone Iodine 03/25/2025 Shellfish Protein-Containing Drug Products Cough,Itching,Nausea Only,Swelling 03/25/2025 Other Reaction(s): throat [...] 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 - upcoming appointment with [facility] in February 2025 Heartburn 12/13/2023 Assessment & [...] Plan (01/12/2025 1:13 PM EST): Previously seeing [facility] neurology, referred back in Jun 2022. Pt will call to schedule appt. Continue (resume) Magnesium oxide. Assessment & Plan (12/13/2023 6:34 AM EST): Previously seeing [facility] neurology, referred back in Jun 2022. Pt will call to schedule appt. Continue (resume) Magnesium oxide. Assessment & Plan (10/25/2022 12:17 PM EST): Previously seeing [facility] neurology, referred back in Jun 2022. [...] or Tdap) 05/31/2025 05/31/2015 COVID-19 Vaccine ( season) 2025 03/27/2021, 03/06/2021 Influenza Vaccine (#1) [...] Results * Colposcopy (03/03/2025 8:46 AM EDT) Historical Provider MD IN CLINIC/BEDSIDE ORDERAB LES Final Result * (ABNORMAL) Lipid Panel with Reflex to Direct LDL (01/12/2025 2:49 PM EST) Triglycerides 135 <150 mg/dL [facility] Comment:Desirable Triglyceri de: less than 150 mg/dLBorderline High Triglyceride 150-199 mg/dLHigh Triglyceride: 200-499 mg/dLVery High Triglyceride: greater than or equal to 5OO mg/dL Cholesterol 202(H) <200 mg/dL [facility] Comment:Desirable Cholestero l: less than 200 mg/dLBorderline High Cholesterol: 200-239 mg/dLHigh Cholesterol: greater than 239 mg/dL LDL Cholesterol Calculated 128(H) <100 mg/dL [facility] Comment:Desirable LDL: less than 100 mg/dLNear Optimal/Above Optimal LDL: 110- 129 mg/dLBorderline High LDL: 130-159 mg/dLHigh LDL: 160-189 mg/dLVery High LDL: greater than or equal to 190 mg/dL HDL Cholesterol 47 >40 mg/dL [facility] Comment:Desirable HDL: great er than 40 mg/dL Note: This HDL assay may give artificially low results in patients with liver disease. Blood 01/12/2025 2:49 PM EST 01/12/2025 4:06 PM EST Xiomara Hernandez MD LAB BLOOD ORDERABLES Final Resul t Performing Organization Address [facility] Co de Phone Number [facility] [address] [place] [phone] * Hepatitis C Antibody with Reflex to HCV, RNA, Quantitative, Real-Time PCR (01/12/2025 2:49 PM EST) Hepatitis C Antibody Nonreactive Nonreactive [facility] Comment:Antibodies to HCV no t detected; does not exclude early acuteHCV infection. Blood Venous blood specimen / Unknown 01/12/2025 2:49 PM EST 01/12/2025 4:06 PM EST Xiomara Hernandez MD LAB BLOOD ORDERABLES Final Resul t Performing Organization Address [facility] Co de Phone Number [facility] [address] [place] [phone] * HIV-1/2 Antigen and Antibodies, Fourth Generation, with Reflexes (01/12/2025 2:49 PM EST) HIV AB/AG Nonreactive Nonreactive [facility] Comment:HIV-1 p24 Ag and/or HIV-1/HIV-2 Ab not detected.A test result that is nonreactive does not exclude thepossibility of exposure to or infection with HIV-1 and/orHIV-2. Nonreactive results in this assay for individualswith prior exposure to HIV-1 and/or HIV-2 may be due toantigen and antibody levels that are below the limit ofdetection of this assay.[employer] HIV Ag/Ab Combo assay result andsupplemental assay results should be interpreted inconjunction with the patient's clinical presentation,history and other laboratory results. If the results areinconsistent with clinical evidence, additional testing issuggested to confirm the result. Blood Venous blood specimen / Unknown 01/12/2025 2:49 PM EST 01/12/2025 4:06 PM EST Xiomara Hernandez MD LAB BLOOD ORDERABLES Final Resul t Performing Organization Address [facility] de Phone Number [facility] [address] [place] [phone] * Hemoglobin A1c (01/12/2025 2:49 PM EST) Hemoglobin A1c 5.7 <6.0 % [facility] Comment:Hemoglobin A1C Refer ence Range Adults: 4.8 - 6.0 % Non diabetic: < 6.0 % Goal: < 7.0 %Additional Action Suggested: > 8.0 %Note: Hemoglobin A1c results are invalid for patients with abnormal amounts of HbF. Blood transfusions may impact the HbA1c concentration in the patient sample. Estimated Average Glucose 117 mg/dL [facility] Comment:eAG = Estimated ave rage glucose which is %A1C expressed asaverage glucose, using the formula of the K2M-EdgazpsTdlbhvx Glucose study (ADAG), Diabetes Care, Vol.31,#8,2007 Blood Venous blood specimen / Unknown 01/12/2025 2:49 PM EST 01/12/2025 4:06 PM EST Xiomara Hernandez MD LAB BLOOD ORDERABLES Final Resul t Performing Organization Address [facility] Co de Phone Number [facility] [address] [place] [phone] * Pap Smear (10/15/2024 11:42 AM EST) Swab Vaginal structure / Unknown 10/15/2024 11:42 AM EST 10/16/2024 10:00 AM EST Narrative [facility] - 10/21/2024 4:12 PM EST ----- ------- Name: Marianela Bunch Age/Sex: 34/F : 1990 Unit#: [id number] Attend Dr: SHANNAN MAURICIO CNM Re10/15/24 Status: DEP REF Location: [facility] Disch: ----- ------- SPEC : [id number] RECD: 10/16/24-1000 STATUS: LISA FLOYD NUM: [id number] DOM: 10/15/24-1142 [facility] DR: SHANNAN MAURICIO CNM ENTERED: 10/16/24-1014 SP TYPE: Pap Smr OTHR [...] ----- ------- Signed (signature on file) Siria [place] 10/21/24 9322 ----- ------- END OF REPORT Shannan Mauricio [facility] CYTOLOGY ORDERABLES F inal Result [facility] [address] [place] [phone] [phone] from Last 3 Months or Most Recently Relevant to Health Maintenance Insurance [employer] Care Teams Rug Underlay Machine Operator Relationship Specialty Start Date End Date Xiomara Hernandez MD [address] [place] [address] PCP - General Family Medicine 05/02/22
--- OUTSIDE RECORDS SUMMARY | 2025-09-07 15:34 | XMS_ITS | Encounter Summary ---
Author Organization [employer] Address [address] [place] [address] 7[place] [address] Care Team Providers Care Computer Systems Software Architect Name Role Phone Xiomara Hernandez MD Primary Care Provider [phone] Reason for Referral * Consultation (Routine) - Pending Review Specialty Diagnoses / Procedures Referred By Kamran barajas Referred To Contact Ophthalmology Diagnoses Vision problem Xiomara Hernandez MD [address] [place] [address] Phone: tel: fax: [facility] Referral ID Status Reason Start Date Expiration Date Visits Requested Visits Authorized [id number] Pending Review Specialty Services Required 02/04/2025 02/04/2026 1 1 * Consultation (Routine) - Closed Specialty Diagnoses / Procedures Referred By Kamran barajas Referred To Contact Nutrition Diagnoses Class 2 obesity due to excess calories without serious comorbidity with body mass index (BMI) of 35.0 to 35.9 in adult Vitamin D deficiency Prediabetes Xiomara Hernandez MD [address] [place] [address] Phone: tel: fax: [facility] [address] [place] [address] [address] [place] [address] Phone: tel: Referral ID Status Reason Start Date Expiration Date V isits Requested Visits Authorized [id number] Closed Specialty Services Required 02/04/2025 02/04/2026 1 1 Encounter Details Date Type Department Care Team (Late st Contact Info) Description 02/04/2025 Orders Only [facility] MEDICINE [address] [place] [address] Xiomara Hernandez MD [address] [place] [address] Class 2 obesity due to excess calories [...] documented as of this encounter Care Teams Computer Systems Software Architect Relationship Specialty Start Date End Date Xiomara Hernandez MD [address] [place] [address] PCP - General Family Medicine 05/02/22 documented as of this encounter
--- OUTSIDE RECORDS SUMMARY | 2025-09-07 15:34 | XMS_ITS | Encounter Summary ---
Author Organization [employer] Address [address] [place] [address] Care Team Providers Care Technical Services Librarian Name Role Phone Xiomara Hernandez MD Primary Care Provider [phone] Reason for Visit * Reason Onset Date Comments Med Refill 10/13/2023 Encounter Details Date Type Department Care Team (Late st Contact Info) Description 10/13/2023 Refill [facility] [address] [place] [address] [phone] Xiomara Hernandez MD [address] [place] [address] Social History Tobacco Use Types Packs/Day Years [...] on filedocumented in this encounter Care Teams Technical Services Librarian Relationship Specialty Start Date End Date Xiomara Hernandez MD [address] [place], [place] [phone] PCP - General Family Medicine 05/02/22 documented as of this encounter
--- OUTSIDE RECORDS SUMMARY | 2025-09-07 15:34 | XMS_ITS | Encounter Summary ---
Author Organization [employer] Address [address] [place] [address] Care Team Providers Care Room Service Associate Name Role Phone Xiomara Hernandez MD Primary Care Provider [phone] Reason for Visit * Reason Onset Date Comments Referral 11/03/2024 Encounter Details Date Type Department Care Team ([facility] st Contact Info) Description 11/03/2024 Telephone [facility] MED[facility]INE [address] [place], [place] [phone] Xiomara Hernandez MD [address] [place] [address] Referral Social History Tobacco Use Types Packs/Day [...] like a referral placed to Ambar Ly, Emergency Room Clerk at [facility]. The pt would like this done due to her being diagnosed pre diabetic and would like to have dietary change to help bring down her glucose trends. Pt informed that this information willbe sent to PCP for review. * Telephone Encounter - Keith Davies - 11/03/2024 12:10 PM EST Tc from requesting a referral for a Neuronist at [facility] Dr Nuris Ly. IF any questions contact pt at [phone] documented in this encounter Plan of Treatment Not on file documented as of this encounter Visit Diagnoses Not on filedocumented in this encounter Additional Health Concerns Assessment Noted Time PHQ-9 Depression Total Score: 0 12/03/19 24 2:34 PM EST documented as of this encounter Care Teams Room Service Associate Relationship Specialty Start Date End Date Xiomara Hernandez MD [address] [place] [address] PCP - General Family Medicine 05/02/22 documented as of this encounter
--- OUTSIDE RECORDS SUMMARY | 2025-09-07 15:34 | XMS_ITS | Encounter Summary ---
Author Organization [employer] Address [address] [place] [address] [address] Care Team Providers Care Drapery Counselor Name Role Phone Xiomara Hernandez MD Primary Care Provider [phone] Encounter Details Date Type Department Care Team (Late st Contact Info) Description 01/13/2025 Orders Only [facility] MEDICINE 230 [place], [place] [phone] Xiomara Hernandez MD [address] [place], [place] [phone] Constipation, unspecified constipation type (Primary Dx); Transaminitis [...] EDT) H pylori Ag Stool SEE NOTE(A) [facility] Comment:HELICOBACTER PYLORI AG, EIA, STOOL Micro Number: [id number] Test Status: Final Specimen Source: Stool Specimen Quality: Adequate H.pylori Ag: Detected Reference Range: Not DetectedTHIS TEST WAS PERFORMED AT:[facility] [address] [id number] JAIMES MD Stool Rectal contents / Unknown 01/19/2025 7:00 PM EDT 01/20/2025 10:23 AM EDT us Xiomara Hernandez MD LAB BODY FLUIDS AND STOOLS ORDER LENA Final Result [facility] [address] [place] [phone] documented in this encounter Visit Diagnoses Diagnosis Constipation, unspecified constipation type- Primary Transaminitis Nonspecific elevation of levels of transaminase or lactic acid dehydrogenase (LDH) documented in this encounter Additional Health Concerns Assessment Noted Time PHQ-9 Depression Total Score: 8 01/13/20 25 2:57 PM EST documented as of this encounter Care Teams Drapery Counselor Relationship Specialty Start Date End Date Xiomara Hernandez MD [address] [place] [address] PCP - General Family Medicine 05/02/22 documented as of this encounter
--- OUTSIDE RECORDS SUMMARY | 2025-09-07 15:34 | XMS_ITS | Encounter Summary ---
Author Organization [employer] Address [address] [place] [address] Care Team Providers Care Business Ethics Professor Name Role Phone Xiomara Hernandez MD Primary Care Provider [phone] Reason for Referral * Consultation (Routine) - Pending Review Specialty Diagnoses / Procedures Referred By Kamran barajas Referred To Contact Nutrition Diagnoses Prediabetes Xiomara Hernandez MD [address] [place] [address] Phone: tel: fax: Referral ID Status Reason Start Date Expiration Date Visits Requested Visits Authorized [id number] Pending Review Specialty Services Required 4 11/03/2025 1 1 Encounter Details Date Type Department Care Team (Late st Contact Info) Description 11/03/2024 Orders Only [facility] [address] [place] [address] [phone] Xiomara Hernandez MD [address] [place], [place] [phone] Prediabetes (Primary Dx) Social History Tobacco Use [...] as of this encounter Care Teams Business Ethics Professor Relationship Specialty Start Date End Date Xiomara Hernandez MD [address] [place] [address] PCP - General Family Medicine 05/02/22 documented as of this encounter
--- OUTSIDE RECORDS SUMMARY | 2025-09-07 15:34 | XMS_ITS | Encounter Summary ---
Author Organization [employer] Address [address] [facility] 7 [place] [address] Care Team Providers Care Cisco Certified Network Associate Name Role Phone Xiomara Hernandez MD Primary Care Provider [phone] Encounter Details Date Type Department Care Team ([facility] st Contact Info) Description 01/21/2025 Orders Only [facility] MEDICINE 230 [place], [place] [phone] Xiomara Hernandez MD 230 [place], [place] [phone] Social History Tobacco Use Types Packs/Day Years [...] documented as of this encounter Care Teams [employer] Certified Network Associate Relationship Specialty Start Date End Date Xiomara Hernandez MD 230 [place] [address] PCP - General Family Medicine 05/02/22 documented as of this encounter
== END ==
LOC: HO.ENCR 12:19
PROVIDERS: Visit Provider Dietitian, Registered
DX: E66.9 Obesity, unspecified (principal)

== ENCOUNTER 2025-11-03 14:37 | Outpatient (AMB) | payer OTHER, SELFPAY ==
--- OUTSIDE RECORDS SUMMARY | 2025-11-03 14:39 | XMS_ITS | Encounter Summary ---
Author Organization [employer] Address [address] [place] [address] Care Team Providers Care Principal Technical Architect Name Role Phone Xiomara Hernandez MD Primary Care Provider [phone] Reason for Visit * Reason Onset Date Comments Med Refill 10/13/2023 Encounter Details Date Type Department Care Team (Late st Contact Info) Description 10/13/2023 Refill [facility] MEDICINE [address] [place] [address] [phone] Xiomara Hernandez MD [address] [place] [address] Social History Tobacco Use Types Packs/Day Years [...] on filedocumented in this encounter Care Teams Principal Technical Architect Relationship Specialty Start Date End Date Xiomara Hernandez MD [address] [place], [place] [phone] PCP - General Family Medicine 05/02/22 documented as of this encounter
--- OUTSIDE RECORDS SUMMARY | 2025-11-03 14:39 | XMS_ITS | Encounter Summary ---
Author Organization [employer] Address [address] [place] [address] Care Team Providers Care House Wirer Helper Name Role Phone Xiomara Hernandez MD Primary Care Provider [phone] Reason for Referral * Consultation (Routine) - Pending Review Specialty Diagnoses / Procedures Referred By Kamran barajas Referred To Contact Nutrition Diagnoses Prediabetes Xiomara Hernandez MD [address] [place] [address] Phone: tel: fax: Referral ID Status Reason Start Date Expiration Date Visits Requested Visits Authorized [id number] Pending Review Specialty Services Required 4 11/03/2025 1 1 Encounter Details Date Type Department Care Team (Late st Contact Info) Description 11/03/2024 Orders Only [facility] MEDICINE [address] [place] [address] [phone] Xiomara Hernandez MD [address] [place], [place] [phone] Prediabetes (Primary Dx) Social History Tobacco Use [...] documented as of this encounter Care Teams House Wirer Helper Relationship Specialty Start Date End Date Xiomara Hernandez MD [address] [place] [address] PCP - General Family Medicine 05/02/22 documented as of this encounter
--- OUTSIDE RECORDS SUMMARY | 2025-11-03 14:39 | XMS_ITS | Encounter Summary ---
Author Organization [employer] Address [address] [place] [address] 7[place] [address] Care Team Providers Care Dicer Operator Name Role Phone Xiomara Hernandez MD Primary Care Provider Encounter Details Date Type Department Care Team (Late st Contact Info) Description 01/13/2025 Orders Only [facility] MEDICINE 230 [place], [place] [phone] Xiomara Hernandez MD 230 [place], [place] [phone] Constipation, unspecified constipation type (Primary Dx); Transaminitis [...] EDT) H pylori Ag Stool SEE NOTE(A) [facility] Comment:HELICOBACTER PYLORI AG, EIA, STOOL Micro Number: [id number] Test Status: Final Specimen Source: Stool Specimen Quality: Adequate H.pylori Ag: Detected Reference Range: Not DetectedTHIS TEST WAS PERFORMED AT:[facility] [employer] [address] [id number] JAIMES MD Stool Rectal contents / Unknown 01/19/2025 7:00 PM EDT 01/20/2025 10:23 AM EDT us Xiomara Hernandez MD LAB BODY FLUIDS AND STOOLS ORDER LENA Final Result [facility] [address] [place] [phone] documented in this encounter Visit Diagnoses Diagnosis Constipation, unspecified constipation type- Primary Transaminitis Nonspecific elevation of levels of transaminase or lactic acid dehydrogenase (LDH) documented in this encounter Additional Health Concerns Assessment Noted Time PHQ-9 Depression Total Score: 8 01/13/20 25 2:57 PM EST documented as of this encounter Care Teams Dicer Operator Relationship Specialty Start Date End Date Xiomara Hernandez MD [address] [place] [address] PCP - General Family Medicine 05/02/22 documented as of this encounter
--- OUTSIDE RECORDS SUMMARY | 2025-11-03 14:39 | XMS_ITS | Encounter Summary ---
Author Organization [employer] Address [address] [facility] [address] [place] [address] Care Team Providers Care Stewarding Supervisor Name Role Phone Xiomara Hernandez MD Primary Care Provider [phone] Encounter Details Date Type Department Care Team ([facility] st Contact Info) Description 03/08/2025 Orders Only [facility] [address] [place] [address] ProviderSebastian MD Social History Tobacco Use Types [...] plan for Marianela and sent her a [email or web address] message - let me know if you [...] documented as of this encounter Care Teams Stewarding Supervisor Relationship Specialty Start Date End Date Xiomara Hernandez MD [address] [place] [address] [phone] PCP - General Family Medicine 05/02/22 documented as of this encounter
--- OUTSIDE RECORDS SUMMARY | 2025-11-03 14:39 | XMS_ITS | Encounter Summary ---
Author Organization [employer] Address [address] [facility] 7 [place] [address] Care Team Providers Care Freight Clerk Name Role Phone Xiomara Hernandez MD Primary Care Provider [phone] Encounter Details Date Type Department Care Team ([facility] st Contact Info) Description 01/21/2025 Orders Only [facility] MEDICINE [address] [place], [place] [phone] Xiomara Hernandez MD 230 [place], [place] [phone] Social History Tobacco Use Types Packs/Day Years [...] documented as of this encounter Care Teams Freight Clerk Relationship Specialty Start Date End Date Xiomara Hernandez MD [address] [place] [address] PCP - General Family Medicine 05/02/22 documented as of this encounter
--- OUTSIDE RECORDS SUMMARY | 2025-11-03 14:39 | XMS_ITS | Encounter Summary ---
Author Organization [email or web address] Address [address] [place] [address] Care Team Providers Care Doping Supervisor Name Role Phone Xiomara Hernandez MD Primary Care Provider [phone] Reason for Visit * Reason Onset Date Comments Referral 11/03/2024 Encounter Details Date Type Department Care Team ([facility] st Contact Info) Description 11/03/2024 Telephone [facility] MEDICINE 230 [place], [place] [phone] Xiomara Hernandez MD 230 [place] [address] Referral Social History Tobacco Use Types Packs/Day [...] like a referral placed to Ambar Ly, Sorter Pricer at [facility]. The pt would like this done due to her being diagnosed pre diabetic and would like to have dietary change to help bring down her glucose trends. Pt informed that this information willbe sent to PCP for review. * Telephone Encounter - Keith Davies - 11/03/2024 12:10 PM EST Tc from requesting a referral for a Neuronist at [facility] Dr Nuris Ly. IF any questions contact pt at [phone] documented in this encounter Plan of Treatment Not on file documented as of this encounter Visit Diagnoses Not on filedocumented in this encounter Additional Health Concerns Assessment Noted Time PHQ-9 Depression Total Score: 0 12/03/19 24 2:34 PM EST documented as of this encounter Care Teams Doping Supervisor Relationship Specialty Start Date End Date Xiomara Hernandez MD [address] [place] [address] PCP - General Family Medicine 05/02/22 documented as of this encounter
--- OUTSIDE RECORDS SUMMARY | 2025-11-03 14:39 | XMS_ITS | Encounter Summary ---
Author Organization [employer] Address [address] [place] [address] [place], [place] [address] Care Team Providers Care Archivist Name Role Phone Xiomara Hernandez MD Primary Care Provider [phone] Reason for Referral * Consultation (Routine) - Pending Review Specialty Diagnoses / Procedures Referred By Kamran barajas Referred To Contact Ophthalmology Diagnoses Vision problem Xiomara Hernandez MD 230 [place] [address] Phone: tel: fax: [facility] Referral ID Status Reason Start Date Expiration Date Visits Requested Visits Authorized [id number] Pending Review Specialty Services Required 02/04/2025 02/04/2026 1 1 * Consultation (Routine) - Closed Specialty Diagnoses / Procedures Referred By Kamran barajas Referred To Contact Nutrition Diagnoses Class 2 obesity due to excess calories without serious comorbidity with body mass index (BMI) of 35.0 to 35.9 in adult Vitamin D deficiency Prediabetes Xiomara Hernandez MD [address] [place] [address] Phone: tel: fax: Ambar Ly [address] [place] [address] 3[address] [place] [address] Phone: tel: Referral ID Status Reason Start Date Expiration Date V isits Requested Visits Authorized [id number] Closed Specialty Services Required 02/04/2025 02/04/2026 1 1 Encounter Details Date Type Department Care Team (Late st Contact Info) Description 02/04/2025 Orders Only [facility] MEDICINE 230 [place] [address] Xiomara Hernandez MD [address] [place] [address] Class 2 obesity due to excess calories [...] documented as of this encounter Care Teams Archivist Relationship Specialty Start Date End Date Xiomara Hernandez MD [address] [place] [address] PCP - General Family Medicine 05/02/22 documented as of this encounter
--- OUTSIDE RECORDS SUMMARY | 2025-11-03 14:39 | XMS_ITS | Encounter Summary ---
Author Organization [employer] Address [address] [place] [address] Care Team Providers Care Director Telehealth Name Role Phone Xiomara Hernandez MD Primary Care Provider [phone] Encounter Details Date Type Department Care Team (Late st Contact Info) Description 06/07/2023 Abstract [facility] MEDICINE 230 [place], [place] [phone] Xiomara Hernandez MD 230 [place] [address] Social History Tobacco Use Types Packs/Day Years [...] on filedocumented in this encounter Care Teams Director Telehealth Relationship Specialty Start Date End Date Xiomara Hernandez MD 230 [place], [place] [phone] PCP - General Family Medicine 05/02/22 documented as of this encounter
--- OUTSIDE RECORDS SUMMARY | 2025-11-03 14:39 | XMS_ITS | Clinical Summary ---
Author Organization [employer] Address [address] [place] [address] 7 [place] [address] Care Team Providers Care Swing Saw Operator Name Role Phone Xiomara Hernandez [...] 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 - upcoming appointment with ANIMAL SCIENCE INSTRUCTOR in February 2025 Heartburn 12/13/2023 Assessment & [...] Plan (01/12/2025 1:13 PM EST): Previously seeing [facility] neurology, referred back in Jun 2022. Pt will call to schedule appt. Continue (resume) Magnesium oxide. Assessment & Plan (12/13/2023 6:34 AM EST): Previously seeing [facility] neurology, referred back in Jun 2022. Pt will call to schedule appt. Continue (resume) Magnesium oxide. Assessment & Plan (10/25/2022 12:17 PM EST): Previously seeing [facility] neurology, referred back in Jun 2022. [...] Date Last Done Comments Disability Screening 1988 Alcohol/Substance Use Screening 2000 Family Planning (PISQ) 2003 HPV Vaccines (1 - 3-dose series) 2003 Pneumococcal Vaccine: Pediatrics (0 to 5 Years) and At-Risk Patients (6 to 49) Years (1 of 2 - PCV) 2007 DTaP/Tdap/Td Vaccines (2 - Td or Tdap) 05/31/2025 05/31/2015 COVID-19 Vaccine ( - season) 2025 03/27/2021, 03/06/2021 Influenza Vaccine (#1) 2025 , 07/26/2022, 08/17/2020, Additional history exists SDOH Screening 01/05/2026 01/05/2025 Depression Screening 01/12/2026 [...] 2:49 PM EST) Triglycerides 135 <150 mg/dL [facility] Comment:Desirable Triglyceri de: less than 150 mg/dLBorderline High Triglyceride 150-199 mg/dLHigh Triglyceride: 200-499 mg/dLVery High Triglyceride: greater than or equal to 5OO mg/dL Cholesterol 202(H) <200 mg/dL [facility] Comment:Desirable Cholestero l: less than 200 mg/dLBorderline High Cholesterol: 200-239 mg/dLHigh Cholesterol: greater than 239 mg/dL LDL Cholesterol Calculated 128(H) <100 mg/dL [facility] Comment:Desirable LDL: less than 100 mg/dLNear Optimal/Above Optimal LDL: 110- 129 mg/dLBorderline High LDL: 130-159 mg/dLHigh LDL: 160-189 mg/dLVery High LDL: greater than or equal to 190 mg/dL HDL Cholesterol 47 >40 mg/dL [facility] Comment:Desirable HDL: great er than 40 mg/dL Note: This HDL assay may give artificially low results in patients with liver disease. Blood 01/12/2025 2:49 PM EST 01/12/2025 4:06 PM EST us Xiomara Hernandez MD LAB BLOOD ORDERABLES Final Resul t Performing Organization Address [facility] Co de Phone Number [facility] [address] [place] [phone] * Hepatitis C Antibody with Reflex to HCV, RNA, Quantitative, Real-Time PCR (01/12/2025 2:49 PM EST) Hepatitis C Antibody Nonreactive Nonreactive [facility] Comment:Antibodies to HCV no t detected; does not exclude early acuteHCV infection. Blood Venous blood specimen / Unknown 01/12/2025 2:49 PM EST 01/12/2025 4:06 PM EST us Xiomara Hernandez MD LAB BLOOD ORDERABLES Final Resul t Performing Organization Address [facility] Co de Phone Number [facility] [address] [place] [phone] * HIV-1/2 Antigen and Antibodies, Fourth Generation, with Reflexes (01/12/2025 2:49 PM EST) HIV AB/AG Nonreactive Nonreactive [facility] Comment:HIV-1 p24 Ag and/or HIV-1/HIV-2 Ab not detected.A test result that is nonreactive does not exclude thepossibility of exposure to or infection with HIV-1 and/orHIV-2. Nonreactive results in this assay for individualswith prior exposure to HIV-1 and/or HIV-2 may be due toantigen and antibody levels that are below the limit ofdetection of this assay.The [employer] HIV Ag/Ab Combo assay result andsupplemental assay results should be interpreted inconjunction with the patient's clinical presentation,history and other laboratory results. If the results areinconsistent with clinical evidence, additional testing issuggested to confirm the result. Blood Venous blood specimen / Unknown 01/12/2025 2:49 PM EST 01/12/2025 4:06 PM EST us Xiomara Hernandez MD LAB BLOOD ORDERABLES Final Resul t Performing Organization Address [facility] Co de Phone Number [facility] [address] [place] [phone] [phone] * Hemoglobin A1c (01/12/2025 2:49 PM EST) Hemoglobin A1c 5.7 <6.0 % [facility] Comment:Hemoglobin A1C Refer ence Range Adults: 4.8 - 6.0 % Non diabetic: < 6.0 % Goal: < 7.0 %Additional Action Suggested: > 8.0 %Note: Hemoglobin A1c results are invalid for patients with abnormal amounts of HbF. Blood transfusions may impact the HbA1c concentration in the patient sample. Estimated Average Glucose 117 mg/dL [facility] Comment:eAG = Estimated ave rage glucose which is %A1C expressed asaverage glucose, using the formula of the T2E-EmglnawSccawuf Glucose study (ADAG), Diabetes Care, Vol.31,#8,Jun. 2007 Blood Venous blood specimen / Unknown 01/12/2025 2:49 PM EST 01/12/2025 4:06 PM EST us Xiomara Hernandez MD LAB BLOOD ORDERABLES Final Resul t Performing Organization Address [facility] Co de Phone Number [facility] [address] [place] [phone] * Pap Smear (10/15/2024 11:42 AM EST) Swab Vaginal structure / Unknown 10/15/2024 11:42 AM EST 10/16/2024 10:00 AM EST Narrative [facility] - 10/21/2024 4:12 PM EST ----- ------- Name: Marianela Bunch Age/Sex: 34/F : 1990 Unit#: [id number] Attend Dr: SHANNAN MAURICIO [facility] Re10/15/24 Status: DEP REF Location: [facility] Disch: ----- ------- SPEC : [id number] RECD: 10/16/24-1000 STATUS: LISA FLOYD NUM: [id number] DOM: 10/15/24-[address] [facility] [address]: SHANNAN MAURICIO [facility] ENTERED: 10/16/24-1014 SP TYPE: Pap Smr OTHR [...] ----- ------- Signed (signature on file) Siria [place] 10/21/24 1612 ----- ------- END OF REPORT Shannan Mauricio [facility] CYTOLOGY ORDERABLES F inal Result [facility] [address] [place] [address] [phone] from Last 3 Months or Most Recently Relevant to Health Maintenance Insurance [employer] Care Teams Swing Saw Operator Relationship Specialty Start Date End Date Xiomara Hernandez MD [address] [place] [phone] PCP - General Family Medicine 05/02/22
[2025-11-03 14:43] VITALS: BP 112/76; PULSE 90; RESP 18; O2SAT 99; BMI 36.0
--- NOTE | 2025-11-03 14:43 | A.OFFPC_ITS ---
Vital Signs 11/03/25 14:43 Height 5 ft 6 in Weight 223 lb BMI 36.0 BP 112/76 Blood Pressure Location Lt brachial Position Sitting Respiration 18 Pulse 90 Pulse Source Pulse Oximeter Temp Source Temporal Artery Scan Pulse Oximetry (%) 99 Oxygen Delivery Method Room Air Intake Visit Reasons: 8 week f/u [employer] Required: No Allergies shellfish derived Allergy (Severe, Verified 11/03/25 15:19) Anaphylaxis Medication List - Last Reconciled 11/03/25 by KRISTAL Piedra cholecalciferol (vitamin D3) 50 mcg PO DAILY magnesium oxide 241.3 mg PO BID omeprazole 20 mg PO DAILY riboflavin (vitamin B2) 400 mg PO DAILY Tobacco use date assessed: 11/03/25 Dental Screening Dental Screen Date: 11/03/25 Did you have a dental visit in the last 12 months?: No Did you have a dental problem in the last 6 months where you did not have access to dental care?: No Was dental information given to patient?: No HPI HPI Comments History of Present Illness Details The patient is a 35 year old female presenting for a follow-up visit to review laboratory results and evaluating chronic conditions. The patient has a history of hyperlipidemia and elevated liver enzymes, both of which have been showing improvement and trending in the right direction. The patient also reports a history of headaches, which she states are getting better and she believes this is due to taking magnesium supplements. She has also had issues with constipation, which have now resolved, and she reports having daily bowel movements. Health Maintenance Recent labs showed normal CBC, metabolic panel, glucose, and thyroid function. A follow-up appointment is scheduled in four months for a lab recheck. A vitamin D level will be added to the next blood draw as it was not checked this time. Social History - Nutrition: The patient is managing her diet to improve cholesterol levels and was counseled that she can have cheat days during the holidays. Results - CBC: Normal. - Comprehensive Metabolic Panel: Kidney function and electrolytes are good. - Glucose: Good. - Liver Enzymes: Trending down and showi ng improvement. - Lipid Panel: Cholesterol is improving and moving in the right direction. - Thyroid: Good. - Urinalysis: Normal with no issues note d. - Vitamin D: Not checked this visit. 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 [place] Sexual orientation: Straight/Heterosexual Gender identity: Female Questionnaire Thrive Questionnaire Date Thrive assessed: 11/03/25 I am a: Patient What is your living situation today?: I have a steady place to live Within the past 12 months, did the food you bought not last and you didn't have the money to get more?: Sometimes True Within the past 12 months, did you worry whether your food would run out before you got money to buy more?: Never true Do you have trouble paying for medicines?: Yes Do you have trouble getting transportation to medical appointments?: No Do you have trouble paying your heating and electricity bill?: Yes Do you have trouble taking care of your child, family member or friend?: No Do you have trouble with day-to-day activities such as bathing, preparing meals, shopping, managing finances, etc.?: No Are you currently unemployed and looking for a job?: No Are you interested in more education?: Yes Please select the resources that you would like help with: Utilities Currently or been in a relationship where the following occur: No concerns reported THRIVE Score: 2 DAKSHA-7 AMB Questionnaire DAKSHA-7 Date DAKSHA - 7 assessed: 07/05/25 Source: Developed by Drs. Prabhjot Gutierrez, Lorrie Tuttle, Andrew Black and colleagues, with an educational grady from [employer]. Review of Systems Narrative Review of Systems - Constitutional: Reports feeling tired. - Neurological: Reports her headaches are getting better. - Gastrointestinal: Reports resolution of constipation, with bowel movements occurring daily. Const Reports headache(s) (on and off) Eyes Reports change in vision and Denies loss of vision ENT Denies vertigo, Denies dizziness, Reports headache(s) (on and off) and Denies sore throat Card Denies chest pain, Denies leg edema and Denies lightheadedness Resp Denies cough, Denies hemoptysis and Denies wheezing GI Denies abdominal pain, Denies melena, Reports constipation, Reports heartburn, Denies diarrhea and Denies vomiting Denies urinary frequency, Denies dysuria and Denies urinary urgency Musc Denies arthralgias, Denies joint swelling, Denies numbness and Denies tingling Neuro Denies Abnormal speech present, Denies behavioral changes, Denies vertigo, Denies dizziness, Reports headache(s) (on and off), Denies loss of vision, Denies memory loss, Denies numbness and Denies tingling Psych Denies anxiety, Denies behavioral changes, Denies depression, Denies memory loss and Denies panic attacks Tarun/Lymph Denies easy bleeding and Denies easy bruising Aller/Immun Denies wheezing Physical exam (Primary Care) Vital Signs: Last Vital Signs Pulse 90 11/03/25 14:43 Resp 18 11/03/25 14:43 BP 112/76 11/03/25 14:43 Pulse Ox 99 11/03/25 14:43 Oxygen Delivery Method Room Air 11/03/25 14:43 BMI result Body Mass Index 36.0 Tobacco/Smoking Status: Tobacco use Status Tobacco use date assessed 11/03/25 11/03/25 14:50 Patient Tobacco Use Status Former Tobacco user 11/03/25 14:50 Thrive Assessment: Date of Thrive Assessment Date Thrive assessed 11/03/25 11/03/25 14:50 Currently or been in a relationship where the following occur: No concerns reported Narrative Physical Exam - Respiratory: Lungs auscultated, no abnormal findings noted. Const General: healthy appearing, no acute distress, alert and awake Nutritional Appearance: well nourished Orientation/consciousness: oriented to person, oriented to place and oriented to time HENMT Ears: Abnormal EAC present cerumen impaction bilateral General nose exam: Normal nasal mucous membranes and turbinates present Eyes Conjunctivae: conjunctivae normal Sclerae: sclerae normal Pupils: Equal, round and reactive pupils present Neck Neck: Yes no lymphadenopathy and Yes no JVD Thyroid: Thyroid normal Carotids: no bruits Resp Effort & Inspection: normal respiratory effort and not tachypneic Auscultation: no crackles, no rales, no rhonchi and no wheezes Cardio Rate: regular rate Rhythm: regular rhythm Heart sounds: no murmurs and normal S1 and S2 GI Palpation (GI): Soft to palpation, nontender, no hepatomegaly and no splenomegaly Auscultation: normal bowel sounds Skin General skin exam: no rashes or lesions noted and dry skin Neuro General: oriented to person, oriented to place and oriented to time Cranial nerves: Yes Equal, round and reactive pupils present Speech: No Abnormal speech present Gait exam (Neuro): Normal gait present Motor exam (neuro): no tremor noted Extrem Right upper extremity: full ROM Left upper extremity: full ROM Right lower extremity: full ROM; no edema Left lower extremity: full ROM; no edema Psych Mental Status: mental status grossly normal Speech and movement: Normal speech and movement present Affect: normal affect Attitude: cooperative Thought process: Normal thought process present Results Reviewed Results Reviewed: Laboratory Tests 07/23/25 07:55 WBC 5.7 RBC 4.40 Hgb 12.5 Hct 38.2 MCV 86.8 MCH 28.4 MCHC 32.7 RDW 13.0 Plt Count 327 Sodium 137 Potassium 4.1 Chloride 104 Carbon Dioxide 26 Anion Gap 11 L BUN 15 Creatinine 0.95 Estimated GFR > 60 Fasting Glucose 97 Calcium 9.0 D Total Bilirubin 0.3 AST 23 ALT 33 H Alkaline Phosphatase 46 Total Protein 7.7 Albumin 4.5 Triglycerides 119 Cholesterol 186 LDL Cholesterol, Calc 119 H HDL Cholesterol 44 TSH 1.33 Urine Color Yellow Urine Appearance Clear Urine pH 5.0 Ur Specific [place] 1.025 Urine Protein Negative Urine Glucose (UA) Negative Urine Ketones Negative Urine Blood Negative Urine Nitrite Negative Ur Leukocyte Esterase Negative Coding Level of Care Code Est Pt Level 4 (45225) Diagnoses Hyperlipidemia, unspecified hyperlipidemia type E78.5 Hyperlipidemia type: unspecified Obesity (BMI 30-39.9) E66.9 Elevated liver enzymes R74.8 Hx of LASIK Z98.890 Change in vision H53.9 Constipation, unspecified constipation type K59.00 Constipation type: unspecified constipation type Bilateral impacted cerumen H61.23 Laterality: bilateral Heartburn R12 Chronic nonintractable headache, unspecified headache type R51.9; G89.29 Headache type: unspecified Headache chronicity pattern: chronic headache Intractability: not intractable Vitamin D deficiency E55.9 Time Spent (min) 37 Assessment & Plan Assessment & Plan (1) HLD (hyperlipidemia): Code(s): E78.5 - Hyperlipidemia, unspecified Category: Medical Qualifiers: Hyperlipidemia type: unspecified Qualified Code(s): E78.5 - Hyperlipid emia, unspecified Plan: LDL 119 mg/dL decreased from 128 mg/dL, on 01/12/2025 Discussed lifestyle modifications including dietary changes and physical activity We will repeat lipid panel in 4 months (2) Obesity (BMI 30-39.9): Code(s): E66.9 - Obesity, unspecified Category: Medical Plan: Encouraged to exercise for at least 30 minutes a day/5 days a week Healthy eating discussed. Encouraged to eat fruits/vegetables, protein- fish/baked chicken, and to avoid salty/fried foods, sweets, caffeine and carbohydrates. Encouraged to increase water intake 6-8 glasses a day (3) Elevated liver enzymes: Code(s): R74.8 - Abnormal levels of other serum enzymes Category: Medical Plan: AST normalized from 33 and ALT decreased to 33 from 39 on 01/12/2025 limit alcohol, tylenol containing medications, and high fat foods Will repeat CMP in 4 months (4) Hx of LASIK: Code(s): Z98.890 - Other specified postprocedural states Category: Surgical Plan: Ophthalmology referral placed; pending evaluation (5) Change in vision: Code(s): H53.9 - Unspecified visual disturbance Category: Medical Plan: Same as above (6) Constipation: Code(s): K59.00 - Constipation, unspecified Category: Medical Qualifiers: Constipation type: unspecified constipation type Qualified Code(s): K59.00 - Constipation, unspecified Plan: Increase fiber in diet (fruits/vegetables 4-5 servings daily) Increase fluid intake and decrease caffeine/energy drinks (may cause mild dehydration) Encouraged regular exercise (e.g., biking, walking, running) Reports improvements since starting taking magnesium oxide for headaches (7) Cerumen impaction: Code(s): H61.20 - Impacted cerumen, unspecified ear Category: Medical Qualifiers: Laterality: bilateral Qualified Code(s): H61.23 - Impacted cerumen, bilateral Plan: Dark, hard cerumen blocking TMs, encouraged using Debrox ear gtts as instructed. She will get the kit and try to have a family flushes her ear at home. The process was explained to the patient. IF she does not see any return of cerumen with flushing, she will book an appointment in office to get her ear flush. (8) Heartburn: Code(s): R12 - Heartburn Category: Medical Plan: Do not eat meals or drink carbonated beverages within 3 hr of bedtime Decrease the amount of fried, fatty, and spicy foods to decrease gastric acid production Raise the head of the bed using 4 to 6-inch blocks, especially if nocturnal symptoms are present Lose weight if indicated; avoid tight-fitting clothing, especially around the waist Avoid foods that relax the Lower esophageal sphincter (chocolate, peppermint, high-fat foods etc.,) Continue omeprazole 20 mg daily at 30 minutes before eating. (9) Headache: Code(s): R51.9 - Headache, unspecified Category: Medical Qualifiers: Headache type: unspecified Headache chronicity pattern: chronic headache Intractability: not intractable Qualified Code(s): R51.9 - Headache, unspecified; G89.29 - Other chronic pain Plan: The patient was taken magnesium oxide 400 mg b.i.d. for headaches and constipation. Encouraged the patient to increase fluids intake. Vitamin B2 400 mg started daily. The patient reports a significant improvement since started magnesium oxide and vitamin B2. Encouraged the patient to avoid triggers. (10) Vitamin D deficiency: Code(s): E55.9 - Vitamin D deficiency, unspecified Category: Medical Plan: Continue cholecalciferol 50 mcg daily Plan Plan Patient was informed and verbally consented to the use of an ambient scribe for clinic note documentation during this visit. 1. Hyperlipidemia The patient's cholesterol is showing improvement, although it is not yet at the goal. The current plan is to continue with lifestyle and dietary modifications. She was encouraged to enjoy the upcoming holidays without strict dietary restrictions. A follow-up lipid panel will be performed in four months to monitor progress. 2. Elevated Liver Enzymes The patient's liver enzymes are trending down, which is a positive development. The plan is to continue monitoring with repeat labs in four months. 3. Headaches The patient reports her headaches are getting better, which she attributes to taking magnesium supplements. She is advised to continue her current supplement regimen as it appears to be effective. Discussion Notes I reviewed the patient's recent lab results with her, highlighting the significant improvement in her liver enzymes and cholesterol levels. I emphasized that while the values are not yet normal, they are trending in the right direction, which is the primary goal. We discussed the plan for a follow- up visit in four months to repeat the labs, and I informed her we would add a vitamin D level at that time. I also acknowledged the positive reports of her headaches improving with magnesium and the resolution of her constipation. I advised her to enjoy the holidays and that it is acceptable to have cheat days without worrying about her diet, recommending she get back on track after the holidays. Patient Instructions - Your recent lab work shows great improvement in your cholesterol and liver tests. Keep up the good work. - You should get your blood work checked again in four months. We will also check your vitamin D level at that time. - Continue taking your vitamins, like magnesium, as they seem to be helping prevent your headaches. - It is okay to relax your diet during the holidays. Enjoy this time with your family and get back on your routine afterward. - Please schedule a follow-up appointment to review your next set of labs. Orders: Orders UA CC w/rflx Micro + Cult 4 Months E55.9 - Vitamin D deficiency, unspecified, E66.9 - Obesity, unspecified, E78.5 - Hyperlipidemia, unspecified, G89.29 - Other chronic pain, K59.00 - Constipation, unspecified, R51.9 - Headache, unspecified, R74.8 - Abnormal levels of other serum enzymes Vitamin D 25-OH Total 4 Months E55.9 - Vitamin D deficiency, unspecified, E66.9 - Obesity, unspecified, E78.5 - Hyperlipidemia, unspecified, G89.29 - Other chronic pain, K59.00 - Constipation, unspecified, R51.9 - Headache, unspecified, R74.8 - Abnormal levels of other serum enzymes Lipid Panel 4 Months E55.9 - Vitamin D deficiency, unspecified, E66.9 - Obesity, unspecified, E78.5 - Hyperlipidemia, unspecified, G89.29 - Other chronic pain, K59.00 - Constipation, unspecified, R51.9 - Headache, unspecified, R74.8 - Abnormal levels of other serum enzymes TSH reflex Free T4 4 Months E55.9 - Vitamin D deficiency, unspecified, E66.9 - Obesity, unspecified, E78.5 - Hyperlipidemia, unspecified, G89.29 - Other chronic pain, K59.00 - Constipation, unspecified, R51.9 - Headache, unspecified, R74.8 - Abnormal levels of other serum enzymes Comprehensive [place]. Panel Fast 4 Months E55.9 - Vitamin D deficiency, u nspecified, E66.9 - Obesity, unspecified, E78.5 - Hyperlipidemia, unspecified, G89.29 - Other chronic pain, K59.00 - Constipation, unspecified, R51.9 - Headache, unspecified, R74.8 - Abnormal levels of other serum enzymes
== END 2025-11-03 15:28 | disposition home or self-care (01) ==
LOC: HO.HMCH 14:37
DX: E78.5 Hyperlipidemia, unspecified (principal); E66.9 Obesity, unspecified; R74.8 Abnormal levels of other serum enzymes; Z98.890 Other specified postprocedural states; H53.9 Unspecified visual disturbance; K59.00 Constipation, unspecified; H61.23 Impacted cerumen, bilateral; R12 Heartburn; R51.9 Headache, unspecified; G89.29 Other chronic pain; E55.9 Vitamin D deficiency, unspecified